=== PATIENT | male | born 1955 | race Caucasian/White ===

== ENCOUNTER → 2016-10-14 | Outpatient (CLI) | payer MEDICARE ==
--- NOTE | 2016-10-14 23:20 | MR ---
EXAMINATION TYPE: MR brain wo con DATE OF EXAM: 10/14/2016 8:58 PM COMPARISON: NONE HISTORY: Head injury 2 mos ago, papilledema, headache, blurred vision, neck pain Standard multiplanar, multisequence MRI departmental protocol Multiplanar, multisequence images of the brain were acquired. Diffusion weighted imaging was perform ed. FINDINGS: Ventricles and sulci have normal size. There are numerous foci of increased signal at the g ray-white matter junction of both cerebral hemispheres on the FLAIR and T2 images that measure up to 5 mm. The total number is approximately 10. Most of these foci are 2 3 mm. There is no midline shift. There is no sign of intracranial hemorrhage. There is mucosal thickening with opacification of left maxillary sinus. Brainstem is intact. Corpus callosum appears normal. Sella turcica is normal. The op tic nerves appear normal. The globes are symmetric. There is no evidence of an orbital mass. Optic ch iasm is normal. There is no evidence of a posterior fossa mass. IMPRESSION: There are numerous relatively small white matter lesions located mostly in the frontal lobes that are nonspecific and could relate to small vessel ischemia or minimal demyelinating disease. I do not see a cause for papilledema. There is left maxillary sinusitis.
== END | disposition home or self-care (01) ==
LOC: RADMRIMAIN 19:58
PROVIDERS: ATTEND Ophthalmology
DX: G93.9 Disorder of brain, unspecified (principal)
CPT/HCPCS: 70551

== ENCOUNTER → 2016-12-16 | Outpatient (CLI) | payer MEDICARE ==
--- NOTE | 2016-12-16 18:47 | PN ---
Lenard Mondragon is a 61-year-old male patient, asthmatic with known history of severe persistent bronchial asthma who is coming in for sleep apnea evaluation. The patient is very well-known to me. I have taken care of his asthma for many years. He has undergone sleep evaluation back in 2005 through the [facility]. At that time, the patient was seen by Dr. Walker. At that time, I was able to retrieve his old sleep study and based on the findings, the patient has mild LISA back then with an apnea-hypopnea index of 7. His disease was worse during REM sleep. He was given CPAP therapy at a pressure of 7 cm of water and subsequently the pressure dropped to 5, and ultimately the patient gave up his treatment. Recently he was complaining of some increased sleepiness and for that reason he wanted to be re-evaluated. I noted that the patient has lost around 20 pounds since his original sleep study back in 2005. He is snoring and his sleep is fragmented for now and he is interested in further evaluation. He goes to bed around 9:00 p.m., wakes up at 6:00 a.m. in the morning. He is waking with a dry mouth. No nocturia. His BP is 128/61, pulse 64, respirations 16, temperature 97.9, saturation 96% on room air. Weight is 225. Height is 5 feet 7 inches. Neck size is 17 1/2 inches. GENERAL APPEARANCE: Obese, calm, comfortable. HEENT: Short neck, crowding posterior pharynx. There is no goiter or neck masses. LUNGS: Clear to auscultation. HEART: Heart sounds are regular rate and rhythm. Normal S1, S2, no S3, no murmurs. ABDOMEN: Soft, nontender. No organomegaly. EXTREMITIES: No edema. No cyanosis, or clubbing. IMPRESSION: 1. Obstructive sleep apnea, mild at baseline coming in for re-evaluation. Based on a sleep study back in 2005, the patient has an AHI of 7 and currently she has been off treatment. 2. Snoring. 3. Severe persistent bronchial asthma. PLAN: The patient will obviously need a re-evaluation. He has lost around 20 pounds. His baseline sleep apnea was mild in severity. I am going to ordered a home sleep study to assess for any residual obstructive sleep apnea and decide treatment accordingly. He is on no treatment for now.
== END | disposition home or self-care (01) ==
LOC: SLEEP 14:20
PROVIDERS: ATTEND Internal Medicine Critical Care Medicine
DX: G47.33 Obstructive sleep apnea (adult) (pediatric) (principal); J45.998 Other asthma

== ENCOUNTER 2017-02-05 21:18 | Inpatient (IN) | payer MEDICARE ==
[2017-02-05] MEDS ORDERED: predniSONE 20 MG TAB PO STA (22:15)
--- NOTE | 2017-02-05 22:20 | XR ---
EXAMINATION TYPE: XR chest 2V DATE OF EXAM: 02/05/2017 9:53 PM COMPARISON: NONE HISTORY: February 08, 2016 TECHNIQUE: Frontal and lateral views of the chest are obtained. FINDINGS: EKG leads are noted. There is no focal air space opacity, pleural effusion, or pneumothora x seen. A few scattered linear shadows are noted bilaterally, most consistent with subsegmental atel ectasis. The cardiac silhouette size is within normal limits. The osseous structures are intact. IMPRESSION: No acute cardiopulmonary process.
--- NOTE | 2017-02-05 22:21 | ED ---
SOB HPI - General Chief Complaint: Shortness of Breath Stated Complaint: ELIS Time Seen by Provider: 02/05/17 21:29 Source: patient, EMS Mode of arrival: EMS Limitations: no limitations - History of Present Illness Initial Comments: This patient is a 61-year-old man with approximately one week to 10 days of cough, wheezing, and dyspnea. He states that he believes he either is having a flareup of bronchitis or pneumonia as this is similar to previous episodes. Patient states that he had phoned his handbag stitcher last week, Dr. Lo, who prescribed him azithromycin but he states that it is not really helping much. The patient does have some right-sided rib pain when he coughs, but is otherwise denying chest pain. He denies diaphoresis. There is no hemoptysis. He does have some occasional yellow sputum. MD Complaint: shortness of breath, cough Onset/Timin -: days(s) Severity: moderate Consistency: constant Improves With: nothing Worsens With: nothing Known History Of: COPD Associated Symptoms: chest pain, cough, sputum production - Related Data Home Medications Medication Instructions Recorded Confirmed Furosemide [Lasix] 40 mg PO DAILY 03/24/14 02/05/17 Levalbuterol HCl [Xopenex 1.25 mg INHALATION RT-QID PRN 03/24/14 02/05/17 Nebulized] Losartan/Hydrochlorothiazide 1 tab PO DAILY 03/24/14 02/05/17 [Hyzaar 100-25 Tablet] Potassium Chloride [Klor-Con 10] 10 meq PO DAILY 03/24/14 02/05/17 Minoxidil 10 mg PO BID 08/28/14 02/05/17 Fexofenadine HCl [Shelly Allergy] 180 mg PO DAILY PRN 11/07/14 02/05/17 hydrALAZINE HCL [Apresoline] 50 mg PO TID 02/08/16 02/05/17 Hydrocodone/Acetaminophen 1 tab PO QID 02/12/16 02/05/17 [Hydrocodon-Acetaminophn 10-325] Temazepam [Temazepam] 30 mg PO HS 02/12/16 02/05/17 Theophylline Anhydrous [Uniphyl] 200 mg PO BID 02/12/16 02/05/17 cloNIDine HCL [cloNIDine HCL] 0.3 mg PO TID 02/12/16 02/05/17 Aspirin EC [Ecotrin Low Dose] 81 mg PO DAILY 02/05/17 02/05/17 Azithromycin [Zithromax] 500 mg PO DAILY 02/05/17 02/05/17 Clopidogrel [Plavix] 75 mg PO DAILY 02/05/17 02/05/17 Ergocalciferol [Vitamin D2] 50,000 unit PO MO 02/05/17 02/05/17 Ipratropium Nebulized [Atrovent 0.5 mg INHALATION RT-QID PRN 02/05/17 02/05/17 Nebulized] Levothyroxine Sodium [Synthroid] 25 mcg PO DAILY 02/05/17 02/05/17 Metoprolol Tartrate [Lopressor] 25 mg PO BID 02/05/17 02/05/17 Montelukast [Singulair] 10 mg PO HS 02/05/17 02/05/17 Promethazine 6.25MG/5Ml [Phenergan 25 mg PO DAILY 02/05/17 02/05/17 Syrup] amLODIPine [Norvasc] 10 mg PO DAILY 02/05/17 02/05/17 predniSONE 10 mg PO DAILY 02/05/17 02/05/17 Allergies Allergy/AdvReac Type Severity Reaction Status Date / Time arformoterol tartrate Allergy Dyspnea Verified 02/12/16 14:03 [From Brovana] Iodinated Contrast Media - Allergy Anaphylaxis Verified 02/12/16 14:03 Oral and [Iodinated Contrast Media - IV Dye] Penicillins Allergy Dyspnea Verified 02/12/16 14:03 Quinolones Allergy Dyspnea Verified 02/05/17 21:46 vancomycin Allergy Dyspnea Verified 02/12/16 14:03 budesonide [From Symbicort] AdvReac Rash/Hives Verified 02/19/16 20:03 formoterol fumarate AdvReac Rash/Hives Verified 02/19/16 20:03 [From Symbicort] Review of Systems ROS Statement: Those systems with pertinent positive or pertinent negative responses have been documented in the HPI. ROS Other: All systems not noted in ROS Statement are negative. Constitutional: Denies: fever, chills, weakness Respiratory: Reports: as per HPI, cough, dyspnea, wheezes. Denies: hemoptysis Cardiovascular: Reports: as per HPI, chest pain. Denies: palpitations, edema Gastrointestinal: Denies: abdominal pain, vomiting, diarrhea Genitourinary: Denies: dysuria, hematuria Musculoskeletal: Denies: back pain Skin: Denies: rash Neurological: Denies: headache, weakness, numbness Past Medical History Past Medical History: Asthma, COPD, GERD/Reflux, Hypertension, Osteoarthritis ( OA), Respiratory Disorder, Sleep Apnea/CPAP/BIPAP Additional Past Medical History / Comment(s): Other HX: OTHER HX; VARICOSE VEINS, does not wear his CPAP, CONSTIPATION, varicosities. History of Any Multi-Drug Resistant Organisms: None Reported Past Surgical History: Appendectomy, Heart Catheterization, Hernia Repair, Orthopedic Surgery, Tonsillectomy Additional Past Surgical History / Comment(s): 09/03 Anterior/cervical spinal decompression and fusion C4-5, C5-6, 3 hernia repairs, total L knee replacement- 2012, cardiac cath no intervention, bronchoscopy with lavage. Past Anesthesia/Blood Transfusion Reactions: No Reported Reaction Past Psychological History: No Psychological Hx Reported Additional Psychological History / Comment(s): Pt lives with in home. He is on disability due to breathing problems. Pt is independent. Pt has a knee brace he uses on his R leg and if he goes out he has another one he places on his L leg. Pt drives a car. Smoking Status: Former smoker Past Alcohol Use History: None Reported Additional Past Alcohol Use History / Comment(s): QUIT SMOKING ABOUT 1 YEAR AGO. SMOKED 1-2 PPD FOR MOST OF LIFE Past Drug Use History: None Reported - Past Family History Mother Family Medical History: Coronary Artery Disease (CAD) Father Family Medical History: Myocardial Infarction ([place]) General Exam Limitations: no limitations General appearance: alert, in no apparent distress Head exam: Present: atraumatic, normocephalic Eye exam: Present: normal appearance. Absent: scleral icterus, conjunctival injection ENT exam: Present: normal oropharynx, mucous membranes moist Neck exam: Present: normal inspection Respiratory exam: Present: wheezes, rhonchi, chest wall tenderness. Absent: respiratory distress, rales, stridor, accessory muscle use, decreased breath sounds, prolonged expiratory Cardiovascular Exam: Present: regular rate, normal rhythm, normal heart sounds. Absent: systolic murmur, diastolic murmur, rubs, gallop GI/Abdominal exam: Present: soft. Absent: tenderness, guarding, rebound, mass Extremities exam: Present: full ROM, normal capillary refill. Absent: pedal edema, calf tenderness Back exam: Absent: CVA tenderness (R), CVA tenderness (L) Neurological exam: Present: alert Skin exam: Present: warm, dry, intact, normal color. Absent: rash, cyanosis, diaphoretic, erythema, petechiae, pallor, mottled Course Vital Signs 02/05/17 02/05/17 02/05/17 21:23 21:40 22:32 Temperature 98.8 F Pulse Rate 81 67 Respiratory 24 24 20 Rate Blood Pressure 171/81 149/64 O2 Sat by Pulse 98 95 Oximetry 02/05/17 02/05/17 02/06/17 23:29 23:38 00:57 Temperature Pulse Rate 67 69 61 Respiratory 18 Rate Blood Pressure 178/77 O2 Sat by Pulse 96 Oximetry 02/06/17 02/06/17 02/06/17 01:03 01:11 02:04 Temperature Pulse Rate 70 78 68 Respiratory 18 Rate Blood Pressure 157/71 O2 Sat by Pulse 92 L Oximetry Medical Decision Making - Lab Data Result diagrams: 02/05/17 22:15 02/05/17 22:15 Lab Results 02/05/17 02/05/17 02/05/17 Range/Units 22:15 22:15 22:15 WBC (3.8-10.6) k/uL RBC (4.30-5.90) m/uL Hgb (13.0-17.5) gm/dL Hct (39.0-53.0) % MCV (80.0-100.0) fL MCH (25.0-35.0) pg MCHC (31.0-37.0) g/dL RDW (11.5-15.5) % Plt Count (150-450) k/uL Neutrophils % % Lymphocytes % % Monocytes % % Eosinophils % % Basophils % % Neutrophils # (1.3-7.7) k/uL Lymphocytes # (1.0-4.8) k/uL Monocytes # (0-1.0) k/uL Eosinophils # (0-0.7) k/uL Basophils # (0-0.2) k/uL Macrocytosis PT 10.7 (9.0-12.0) sec INR 1.1 (<1.1) APTT 26.5 (22.0-30.0) sec D-Dimer 0.21 (<0.60) mg/L FEU Sodium (137-145) mmol/L Potassium (3.5-5.1) mmol/L Chloride (98-107) mmol/L Carbon Dioxide (22-30) mmol/L Anion Gap mmol/L BUN (9-20) mg/dL Creatinine (0.66-1.25) mg/dL Est GFR (MDRD) Af Amer (>60 ml/min/1.73 sqM) Est GFR (MDRD) Non-Af (>60 ml/min/1.73 sqM) Glucose (74-99) mg/dL Calcium (8.4-10.2) mg/dL Total Bilirubin (0.2-1.3) mg/dL AST (17-59) U/L ALT (21-72) U/L Alkaline Phosphatase (38-126) U/L Total Creatine Kinase 90 (55-170) U/L CK-MB (CK-2) 1.3 (0.0-2.4) ng/mL CK-MB (CK-2) Rel Index 1.4 Troponin I <0.012 (0.000-0.034) ng/mL NT-Pro-B Natriuret Pep 33 pg/mL Total Protein (6.3-8.2) g/dL Albumin (3.5-5.0) g/dL 02/05/17 02/05/17 Range/Units 22:15 22:15 WBC 8.7 (3.8-10.6) k/uL RBC 4.11 L (4.30-5.90) m/uL Hgb 14.2 (13.0-17.5) gm/dL Hct 42.7 (39.0-53.0) % MCV 104.0 H (80.0-100.0) fL MCH 34.5 (25.0-35.0) pg MCHC 33.2 (31.0-37.0) g/dL RDW 13.4 (11.5-15.5) % Plt Count 229 (150-450) k/uL Neutrophils % 79 % Lymphocytes % 13 % Monocytes % 5 % Eosinophils % 0 % Basophils % 0 % Neutrophils # 6.9 (1.3-7.7) k/uL Lymphocytes # 1.2 (1.0-4.8) k/uL Monocytes # 0.5 (0-1.0) k/uL Eosinophils # 0.0 (0-0.7) k/uL Basophils # 0.0 (0-0.2) k/uL Macrocytosis Slight PT (9.0-12.0) sec INR (<1.1) APTT (22.0-30.0) sec D-Dimer (<0.60) mg/L FEU Sodium 142 (137-145) mmol/L Potassium 4.2 (3.5-5.1) mmol/L Chloride 106 (98-107) mmol/L Carbon Dioxide 26 (22-30) mmol/L Anion Gap 10 mmol/L BUN 14 (9-20) mg/dL Creatinine 0.90 (0.66-1.25) mg/dL Est GFR (MDRD) Af Amer >60 (>60 ml/min/1.73 sqM) Est GFR (MDRD) Non-Af >60 (>60 ml/min/1.73 sqM) Glucose 97 (74-99) mg/dL Calcium 9.2 (8.4-10.2) mg/dL Total Bilirubin 0.3 (0.2-1.3) mg/dL AST 21 (17-59) U/L ALT 31 (21-72) U/L Alkaline Phosphatase 75 (38-126) U/L Total Creatine Kinase (55-170) U/L CK-MB (CK-2) (0.0-2.4) ng/mL CK-MB (CK-2) Rel Index Troponin I (0.000-0.034) ng/mL NT-Pro-B Natriuret Pep pg/mL Total Protein 6.6 (6.3-8.2) g/dL Albumin 4.1 (3.5-5.0) g/dL Disposition Clinical Impression: Acute exacerbation of chronic obstructive airways disease Disposition: ADMITTED IP TO THIS HOSP Condition: Fair Referrals: Chris Ervin MD [Primary Care Provider] - 1-2 days
[2017-02-05 22:38] LABS: Basophils % (A) 0 %; CH 35.3; CHCM 34.1; Eosinophils % (A) 0 %; HCT 42.7 % (39.0-53.0); HDW 2.35; HGB 14.2 gm/dL (13.0-17.5); Luc # (Auto) 0.16; Luc % (Auto) 2; Lymphocytes # (A) 1.2 k/uL (1.0-4.8); Lymphocytes % (A) 13 %; MCH 34.5 pg (25.0-35.0); MCHC 33.2 g/dL (31.0-37.0); Macrocytosis Slight; Mean Platelet Volume 7.2; Monocytes # (A) 0.5 k/uL (0-1.0); Monocytes % (A) 5 %; Neutrophils # (A) 6.9 k/uL (1.3-7.7); Neutrophils % (A) 79 %; RBC 4.11 m/uL (4.30-5.90); RDW 13.4 % (11.5-15.5); WBC 8.7 k/uL (3.8-10.6)
[2017-02-05 22:49] LABS: INR 1.1 (<1.1); Partial Thromboplastin Time 26.5 sec (22.0-30.0); Prothrombin Time 10.7 sec (9.0-12.0)
[2017-02-05 22:50] LABS: ALT 31 U/L (21-72); AST 21 U/L (17-59); Alkaline Phosphatase 75 U/L (38-126); Anion Gap 10 mmol/L; Blood Urea Nitrogen 14 mg/dL (9-20); Calcium 9.2 mg/dL (8.4-10.2); Carbon Dioxide 26 mmol/L (22-30); Chloride 106 mmol/L (98-107); Glucose 97 mg/dL (74-99); Non-African American GFR(MDRD) >60 (>60 ml/min/1.73 sqM); Potassium 4.2 mmol/L (3.5-5.1); Sodium 142 mmol/L (137-145); Total Bilirubin 0.3 mg/dL (0.2-1.3); Total Protein 6.6 g/dL (6.3-8.2)
[2017-02-05 22:54] LABS: Creatine Kinase 90 U/L (55-170)
[2017-02-05 23:05] LABS: Creatine Kinase MB 1.3 ng/mL (0.0-2.4); Troponin I <0.012 ng/mL (0.000-0.034)
[2017-02-05] MEDS ORDERED: ALBUTEROL NEBULIZED 2.5 MG/3 ML INHALATION STA (23:19)
[2017-02-06] MEDS ORDERED: IPRATROPIUM-ALBUTEROL 3 ML NEB INHALATION STA (00:35)
[2017-02-06] MEDS ORDERED: cloNIDine HCL 0.1 MG TAB PO STA (00:56)
[2017-02-06] MEDS ORDERED: hydrALAZINE HCL 50 MG TAB PO STA (00:56)
[2017-02-06] MEDS ORDERED: METOPROLOL TARTRATE 25 MG TAB PO STA (00:56)
[2017-02-06] MEDS ORDERED: LORATADINE 10 MG TAB PO PRN (02:52)
[2017-02-06] MEDS: SODIUM CHLORIDE 0.9% 1,000 ML IV SCH (03:12)
[2017-02-06] MEDS ORDERED: IPRATROPIUM-ALBUTEROL 3 ML NEB INHALATION PRN (03:13)
[2017-02-06] MEDS: LEVOTHYROXINE 25 MCG TAB PO SCH (06:59)
[2017-02-06] MEDS: IPRATROPIUM-ALBUTEROL 3 ML NEB INHALATION SCH ×4 (07:37→19:48)
[2017-02-06] MEDS ORDERED: BUDESONIDE 0.5 MG/2 ML NEBU INHALATION SCH (08:00)
[2017-02-06] MEDS: HYDROcodone/APAP 10-325MG 1 EACH TAB PO SCH ×4 (08:25→22:41)
[2017-02-06] MEDS: CLOPIDOGREL 75 MG TAB PO SCH (08:26)
[2017-02-06] MEDS: hydrALAZINE HCL 50 MG TAB PO SCH ×3 (08:26→22:41)
[2017-02-06] MEDS: LOSARTAN-HCTZ 50-12.5 MG 1 EACH TAB PO SCH (08:26)
[2017-02-06] MEDS: amLODIPine 10 MG TAB PO SCH (08:26)
[2017-02-06] MEDS: ASPIRIN 81 MG CHEW PO SCH (08:26)
[2017-02-06] MEDS: AZITHROMYCIN 500 MG TAB PO SCH (08:26)
[2017-02-06] MEDS: THEOPHYLLINE 24 HOUR 400 MG CAP.ER.24H PO SCH (08:26)
[2017-02-06] MEDS: METOPROLOL TARTRATE 25 MG TAB PO SCH ×2 (08:26→22:40)
[2017-02-06] MEDS: cloNIDine HCL 0.1 MG TAB PO SCH ×3 (08:26→22:41)
[2017-02-06] MEDS: POTASSIUM CHLORIDE ER 10 MEQ TAB.ER.PRT PO SCH (08:26)
[2017-02-06] MEDS: FUROSEMIDE 40 MG TAB PO SCH (08:26)
[2017-02-06] MEDS: MINOXIDIL 10 MG TAB PO SCH ×2 (08:26→22:40)
[2017-02-06] MEDS ORDERED: predniSONE 20 MG TAB PO SCH (09:00)
[2017-02-06] MEDS ORDERED: PROMETHAZINE 6.25MG/5ML 147.5 MG/118 ML BOTTLE PO SCH (09:00)
[2017-02-06] MEDS: methylPREDNISolone SOD SUCCI 125 MG/2 ML VIAL IV SCH ×3 (12:10→22:42)
--- NOTE | 2017-02-06 14:23 | P.HPIM ---
History of Present Illness H&P Date: 02/06/17 Chief Complaint: Worsening shortness of breath This is a 61-year-old male with a known history of COPD, hypertension, coronary artery disease with previous cardiac stent and obstructive sleep apnea. He reports to having a productive cough and shortness of breath 1 week. He was started on azithromycin the outpatient setting by his shirt sewer. Patient reports that he took about 3 days of the antibiotic with no improvement therefore he came into the emergency room for further evaluation and treatment. Chest x-ray showed no acute changes. In the emergency room he was started on prednisone and Zithromax. He did have evidence of accelerated hypertension and received 1 dose of IV hydralazine. D-dimer was negative. Currently on 3 L standing and 94%. Pulmonary service has been consulted patient started on IV steroids and IV antibiotics. He denies any chest pain. Denies any nausea or vomiting. Denies any bowel movement changes or urinary symptoms Review of Systems Please refer to HPI otherwise unremarkable Past Medical History Past Medical History: Asthma, COPD, GERD/Reflux, Hypertension, Osteoarthritis ( OA), Respiratory Disorder, Sleep Apnea/CPAP/BIPAP Additional Past Medical History / Comment(s): Other HX: OTHER HX; VARICOSE VEINS, does not wear his CPAP, CONSTIPATION, varicosities. History of Any Multi-Drug Resistant Organisms: None Reported Past Surgical History: Appendectomy, Heart Catheterization With Stent, Hernia Repair, Orthopedic Surgery, Tonsillectomy Additional Past Surgical History / Comment(s): 09/03 Anterior/cervical spinal decompression and fusion C4-5, C5-6, 3 hernia repairs, total L knee replacement- 2012, cardiac cath, bronchoscopy with lavage. Past Anesthesia/Blood Transfusion Reactions: No Reported Reaction Date of Last Stent Placement:: 12/03 Past Psychological History: No Psychological Hx Reported Additional Psychological History / Comment(s): Pt lives with in home. He is on disability due to breathing problems. Pt is independent. Pt has a knee brace he uses on his R leg and if he goes out he has another one he places on his L leg. Pt drives a car. Smoking Status: Former smoker Past Alcohol Use History: None Reported Additional Past Alcohol Use History / Comment(s): QUIT SMOKING ABOUT 1 YEAR AGO. SMOKED 1-2 PPD FOR MOST OF LIFE Past Drug Use History: None Reported - Past Family History Mother Family Medical History: Coronary Artery Disease (CAD) Father Family Medical History: Myocardial Infarction ([place]) Medications and Allergies Home Medications Medication Instructions Recorded Confirmed Type Furosemide [Lasix] 40 mg PO DAILY 03/24/14 02/05/17 History Levalbuterol HCl [Xopenex 1.25 mg INHALATION RT-QID PRN 03/24/14 02/05/17 History Nebulized] Losartan/Hydrochlorothiazide 1 tab PO DAILY 03/24/14 02/05/17 History [Hyzaar 100-25 Tablet] Potassium Chloride [Klor-Con 10] 10 meq PO DAILY 03/24/14 02/05/17 History Minoxidil 10 mg PO BID 08/28/14 02/05/17 History Fexofenadine HCl [Shelly Allergy] 180 mg PO DAILY PRN 11/07/14 02/05/17 History hydrALAZINE HCL [Apresoline] 50 mg PO TID 02/08/16 02/05/17 History Hydrocodone/Acetaminophen 1 tab PO QID 02/12/16 02/05/17 History [Hydrocodon-Acetaminophn 10-325] Temazepam [Temazepam] 30 mg PO HS 02/12/16 02/05/17 History Theophylline Anhydrous [Uniphyl] 200 mg PO BID 02/12/16 02/05/17 History cloNIDine HCL [cloNIDine HCL] 0.3 mg PO TID 02/12/16 02/05/17 History Aspirin EC [Ecotrin Low Dose] 81 mg PO DAILY 02/05/17 02/05/17 History Azithromycin [Zithromax] 500 mg PO DAILY 02/05/17 02/05/17 History Clopidogrel [Plavix] 75 mg PO DAILY 02/05/17 02/05/17 History Ergocalciferol [Vitamin D2] 50,000 unit PO MO 02/05/17 02/05/17 History Ipratropium Nebulized [Atrovent 0.5 mg INHALATION RT-QID PRN 02/05/17 02/05/17 History Nebulized] Levothyroxine Sodium [Synthroid] 25 mcg PO DAILY 02/05/17 02/05/17 History Metoprolol Tartrate [Lopressor] 25 mg PO BID 02/05/17 02/05/17 History Montelukast [Singulair] 10 mg PO HS 02/05/17 02/05/17 History Promethazine 6.25MG/5Ml [Phenergan 25 mg PO DAILY 02/05/17 02/05/17 History Syrup] amLODIPine [Norvasc] 10 mg PO DAILY 02/05/17 02/05/17 History predniSONE 10 mg PO DAILY 02/05/17 02/05/17 History Allergies Allergy/AdvReac Type Severity Reaction Status Date / Time arformoterol tartrate Allergy Dyspnea Verified 02/12/16 14:03 [From CiDRAvana] Iodinated Contrast Media - Allergy Anaphylaxis Verified 02/12/16 14:03 Oral and [Iodinated Contrast Media - IV Dye] Penicillins Allergy Dyspnea Verified 02/12/16 14:03 Quinolones Allergy Dyspnea Verified 02/05/17 21:46 vancomycin Allergy Dyspnea Verified 02/12/16 14:03 budesonide [From [employer]] AdvReac Rash/Hives Verified 02/19/16 20:03 formoterol fumarate AdvReac Rash/Hives Verified 02/19/16 20:03 [From [employer]] Physical Exam Vitals: Vital Signs Temp Pulse Pulse Resp BP BP Pulse Ox 02/06/17 11:23 76 02/06/17 11:18 72 02/06/17 08:00 18 02/06/17 07:58 76 02/06/17 07:39 73 94 L 02/06/17 07:00 97.4 F L 70 19 148/78 93 L 02/06/17 03:59 96.9 F L 61 20 146/70 96 02/06/17 03:13 98.3 F 65 22 139/65 95 02/06/17 02:04 68 18 157/71 92 L 02/06/17 01:11 78 02/06/17 01:03 70 02/06/17 00:57 61 18 178/77 96 02/05/17 23:38 69 02/05/17 23:29 67 02/05/17 22:32 67 20 149/64 95 02/05/17 21:40 24 02/05/17 21:23 98.8 F 81 24 171/81 98 Intake and Output 02/05/17 02/06/17 02/06/17 22:59 06:59 14:59 Other: # Voids 0 1 # Bowel Movements 0 Weight 99.79 kg Head normocephalic Neck supple Lungs wheezing and diminished bilaterally Heart regular rate and rhythm S1-S2, no rub or gallop Abdomen is soft nontender nondistended positive bowel sounds no hepatosplenomegaly Extremities no edema Neuro alert and orientated to 3 Results CBC & Chem 7: 02/05/17 22:15 02/05/17 22:15 Labs: Abnormal Lab Results - Last 24 Hours (Table) 02/05/17 Range/Units 22:15 RBC 4.11 L (4.30-5.90) m/uL MCV 104.0 H (80.0-100.0) fL Thrombosis Risk Factor Assmnt - Choose All That Apply Any of the Below Risk Factors Present?: Yes Each Factor Represents 1 point: Abnormal pulmonary function (COPD), Obesity ( BMI >25), Serious lung disease incl. pneumonia (< 1month), Varicose veins Other Risk Factors: Yes Each Risk Factor Represents 2 Points: Age 61-74 years Thrombosis Risk Factor Assessment Total Risk Factor Score: 6 Thrombosis Risk Factor Assessment Level: High Risk Assessment and Plan Plan: 1. Acute COPD exacerbation: Continue nebulizer treatments. Patient will be placed on IV Solu-Medrol 2. Acute tracheobronchitis: Start patient on clindamycin 600 mg IV every 8 hours continue azithromycin. Patient has ALLERGIES to quinolones penicillin and vancomycin 3. Accelerated hypertension on admission with history of essential hypertension : blood pressures improved continue with his Catapres patch hydralazine, losartan, hydrochlorothiazide, metoprolol and minoxidil 4. Hypothyroidism continue Synthroid 5. Obstructive sleep apnea 6. Coronary artery disease with cardiac stent continue Plavix DVT prophylaxis subcu heparin and GI prophylaxis Time with Patient: Greater than 30 (Greater than 50% of the total time spent in counseling and coordination of care.I performed an examination of the patient and discussed their management with the physician Squadron Worker. I have reviewed the Physician Squadron Worker's notes and agree with the documented findings and plan of care)
--- NOTE | 2017-02-06 15:45 | P.CNPUL ---
History of Present Illness Consult date: 02/06/17 Reason for consult: dyspnea History of present illness: 61-year-old male patient, known history of severe persistent bronchial asthma, was Hospital as because of increased shortness of breath. The patient started having increased dyspnea approximately a week ago. He was treated on outpatient basis with a course of Z-Gonzales without much improvement. This was offered to him for treatment of tracheal bronchitis. He ultimately became more short of breath and bronchospastic and wheezy and he developed significantly congested cough and he ended up coming to the emergency department where he was hospitalized for further evaluation and management. Chest x-ray is free of any acute pulmonary infiltrates. He is known to have coronary artery disease and he has undergone previous coronary artery stenting that was done in November 2015. Note that the patient has been maintained on a combination of Breo Ellipta , theophylline and Singulair and Shelly and 10 mg of prednisone a daily basis. He was also receiving neb last tubes are macerated basis. He is known to have obstructive sleep apnea and he was not using his CPAP machine as the patient was uncomfortable with the mask. He has various other medical [place] comorbidities in addition. He is an ex-smoker. No DVT. No pulmonary embolism. No swelling lower extremities. Review of Systems All systems: negative Constitutional: Denies chills, Denies fever Eyes: denies blurred vision, denies pain Ears, nose, mouth and throat: Denies headache, Denies sore throat Cardiovascular: Denies chest pain, Denies shortness of breath Respiratory: Denies cough Gastrointestinal: Denies abdominal pain, Denies diarrhea, Denies nausea, Denies vomiting Musculoskeletal: Denies myalgias Integumentary: Denies pruritus, Denies rash Neurological: Denies numbness, Denies weakness Psychiatric: Denies anxiety, Denies depression Endocrine: Denies fatigue, Denies weight change Past Medical History Past Medical History: Asthma, COPD, GERD/Reflux, Hypertension, Osteoarthritis ( OA), Respiratory Disorder, Sleep Apnea/CPAP/BIPAP Additional Past Medical History / Comment(s): Severe persistent bronchial asthma , coronary artery disease, hyperlipidemia, hypertension, obesity, obstructive sleep apnea, osteoarthritis, very closely in the lower extremities, chronic constipation History of Any Multi-Drug Resistant Organisms: None Reported Past Surgical History: Appendectomy, Heart Catheterization With Stent, Hernia Repair, Orthopedic Surgery, Tonsillectomy Additional Past Surgical History / Comment(s): Hernia repair 4, tonsillectomy, appendectomy, bronchoscopy, total left knee replacement 2012, anterior and cervical spinal decompression and fusion at the level of C4-C5, C5-C6 and cardiac catheterization with stent placement Past Anesthesia/Blood Transfusion Reactions: No Reported Reaction Date of Last Stent Placement:: 12/03 Past Psychological History: No Psychological Hx Reported Additional Psychological History / Comment(s): Pt lives with in home. He is on disability due to breathing problems. Pt is independent. Pt has a knee brace he uses on his R leg and if he goes out he has another one he places on his L leg. Pt drives a car. Smoking Status: Former smoker Past Alcohol Use History: None Reported Additional Past Alcohol Use History / Comment(s): QUIT SMOKING ABOUT 1 YEAR AGO. SMOKED 1-2 PPD FOR MOST OF LIFE Past Drug Use History: None Reported - Past Family History Mother Family Medical History: Coronary Artery Disease (CAD) Father Family Medical History: Myocardial Infarction ([place]) Medications and Allergies Home Medications Medication Instructions Recorded Confirmed Type Furosemide [Lasix] 40 mg PO DAILY 03/24/14 02/05/17 History Levalbuterol HCl [Xopenex 1.25 mg INHALATION RT-QID PRN 03/24/14 02/05/17 History Nebulized] Losartan/Hydrochlorothiazide 1 tab PO DAILY 03/24/14 02/05/17 History [Hyzaar 100-25 Tablet] Potassium Chloride [Klor-Con 10] 10 meq PO DAILY 03/24/14 02/05/17 History Minoxidil 10 mg PO BID 08/28/14 02/05/17 History Fexofenadine HCl [Shelly Allergy] 180 mg PO DAILY PRN 11/07/14 02/05/17 History hydrALAZINE HCL [Apresoline] 50 mg PO TID 02/08/16 02/05/17 History Hydrocodone/Acetaminophen 1 tab PO QID 02/12/16 02/05/17 History [Hydrocodon-Acetaminophn 10-325] Temazepam [Temazepam] 30 mg PO HS 02/12/16 02/05/17 History Theophylline Anhydrous [Uniphyl] 200 mg PO BID 02/12/16 02/05/17 History cloNIDine HCL [cloNIDine HCL] 0.3 mg PO TID 02/12/16 02/05/17 History Aspirin EC [Ecotrin Low Dose] 81 mg PO DAILY 02/05/17 02/05/17 History Azithromycin [Zithromax] 500 mg PO DAILY 02/05/17 02/05/17 History Clopidogrel [Plavix] 75 mg PO DAILY 02/05/17 02/05/17 History Ergocalciferol [Vitamin D2] 50,000 unit PO MO 02/05/17 02/05/17 History Ipratropium Nebulized [Atrovent 0.5 mg INHALATION RT-QID PRN 02/05/17 02/05/17 History Nebulized] Levothyroxine Sodium [Synthroid] 25 mcg PO DAILY 02/05/17 02/05/17 History Metoprolol Tartrate [Lopressor] 25 mg PO BID 02/05/17 02/05/17 History Montelukast [Singulair] 10 mg PO HS 02/05/17 02/05/17 History Promethazine 6.25MG/5Ml [Phenergan 25 mg PO DAILY 02/05/17 02/05/17 History Syrup] amLODIPine [Norvasc] 10 mg PO DAILY 02/05/17 02/05/17 History predniSONE 10 mg PO DAILY 02/05/17 02/05/17 History Allergies Allergy/AdvReac Type Severity Reaction Status Date / Time arformoterol tartrate Allergy Dyspnea Verified 02/12/16 14:03 [From Brovana] Iodinated Contrast Media - Allergy Anaphylaxis Verified 02/12/16 14:03 Oral and [Iodinated Contrast Media - IV Dye] Penicillins Allergy Dyspnea Verified 02/12/16 14:03 Quinolones Allergy Dyspnea Verified 02/05/17 21:46 vancomycin Allergy Dyspnea Verified 02/12/16 14:03 budesonide [From Symbicort] AdvReac Rash/Hives Verified 02/19/16 20:03 formoterol fumarate AdvReac Rash/Hives Verified 02/19/16 20:03 [From Symbicort] Physical Exam Vitals: Vital Signs Temp Pulse Pulse Resp BP BP Pulse Ox 02/06/17 11:23 76 02/06/17 11:18 72 02/06/17 08:00 18 02/06/17 07:58 76 02/06/17 07:39 73 94 L 02/06/17 07:00 97.4 F L 70 19 148/78 93 L 02/06/17 03:59 96.9 F L 61 20 146/70 96 02/06/17 03:13 98.3 F 65 22 139/65 95 02/06/17 02:04 68 18 157/71 92 L 02/06/17 01:11 78 02/06/17 01:03 70 02/06/17 00:57 61 18 178/77 96 02/05/17 23:38 69 02/05/17 23:29 67 02/05/17 22:32 67 20 149/64 95 02/05/17 21:40 24 02/05/17 21:23 98.8 F 81 24 171/81 98 Intake and Output 02/06/17 02/06/17 02/06/17 06:59 14:59 22:59 Other: # Voids 0 1 # Bowel Movements 0 Obese, comfortable, no acute distress.Head exam was generally normal. There was no scleral icterus or corneal arcus. Mucous membranes were moist. Neck is short and supple and the patient is crowding of the posterior oropharynx. There is no goiter or neck masses. Lungs sounds are diminished bilaterally and the patient has diffuse expiratory wheezes all the lung [place].Cardiac exam revealed the PMI to be normally situated and sized. The rhythm was regular and no extrasystoles were noted during several minutes of auscultation. The first and second heart sounds were normal and physiologic splitting of the second heart sound was noted. There were no murmurs, rubs, clicks, or gallops. Abdomen is obese soft nontender. Organs cannot be accurately palpated. There is no direct tenderness. No rebound tenderness. No guarding.Examination of the extremities revealed easily palpable radial, femoral and pedal pulses. There was no cyanosis, clubbing or edema. Results - Laboratory Findings CBC and BMP: 02/05/17 22:15 02/05/17 22:15 PT/INR, D-dimer PT 10.7 sec (9.0-12.0) 02/05/17 22:15 INR 1.1 (<1.1) 02/05/17 22:15 D-Dimer 0.21 mg/L FEU (<0.60) 02/05/17 22:15 Abnormal lab findings: Abnormal Labs 02/05/17 22:15 RBC 4.11 L MCV 104.0 H - Diagnostic Findings Chest x-ray: image reviewed Assessment and Plan Plan: 1 acute bronchial asthma exacerbation secondary to tracheal bronchitis 2 Severe persistent bronchial asthma, details discussed above and the patient has been maintained on a combination of medications including Breo , theophylline, Singulair and Shelly in addition to Xopenex tablets treatment on as-needed basis. The patient used to be on Xolair the past 3 coronary artery disease 4 obstructive sleep apnea. 5 obesity 6 hyperlipidemia 7 hypertension 8 osteoarthritis 9 chronic back pain 10 GERD Plan This patient will be started on DuoNeb nebulized treatments around the clock 4 times a day. Continue Zithromax 5 mg on a daily basis. Discontinue clindamycin knowing that this may interact with Zithromax. Continue IV Solu- Medrol. Put the patient a combination of Perforomist and Pulmicort neb estimates twice a day, Tussionex for cough, theophylline 24 for milligrams by mouth daily. Resume Singulair. Anticipate improvement. We'll continue to follow make further recommendations based on his progress.
[2017-02-06] MEDS ORDERED: CLINDAMYCIN 600 MG in DEXTROSE 5% IN WATER 50 ML IVPB SCH ×2 (16:00)
[2017-02-06] MEDS: CHLORPHEN-HYDROcod 8-10mg/5ml 5 ML ORAL.SYRG PO SCH (16:31)
[2017-02-06] MEDS: BUDESONIDE 0.5 MG/2 ML NEBU INHALATION SCH (19:48)
[2017-02-06] MEDS ORDERED: FORMOTEROL FUMARATE 20 MCG/2 ML NEBU INHALATION SCH (20:00)
[2017-02-06] MEDS: HEPARIN SODIUM,PORCINE 5,000 UNIT/ML 1 ML VIAL SQ SCH (22:39)
[2017-02-06] MEDS: MONTELUKAST 10 MG TAB PO SCH (22:40)
[2017-02-06] MEDS: TEMAZEPAM 30 MG CAP PO SCH (22:41)
[2017-02-07] MEDS: SODIUM CHLORIDE 0.9% 1,000 ML IV SCH (06:12)
[2017-02-07] MEDS: CHLORPHEN-HYDROcod 8-10mg/5ml 5 ML ORAL.SYRG PO SCH ×2 (06:13→15:52)
[2017-02-07] MEDS: LEVOTHYROXINE 25 MCG TAB PO SCH (06:13)
[2017-02-07] MEDS: methylPREDNISolone SOD SUCCI 125 MG/2 ML VIAL IV SCH ×4 (06:14→23:45)
[2017-02-07] MEDS: MINOXIDIL 10 MG TAB PO SCH ×2 (08:00→22:04)
[2017-02-07] MEDS: AZITHROMYCIN 500 MG TAB PO SCH (08:00)
[2017-02-07] MEDS: METOPROLOL TARTRATE 25 MG TAB PO SCH ×2 (08:00→22:04)
[2017-02-07] MEDS: THEOPHYLLINE 24 HOUR 400 MG CAP.ER.24H PO SCH (08:00)
[2017-02-07] MEDS: amLODIPine 10 MG TAB PO SCH (08:00)
[2017-02-07] MEDS: POTASSIUM CHLORIDE ER 10 MEQ TAB.ER.PRT PO SCH (08:00)
[2017-02-07] MEDS: ASPIRIN 81 MG CHEW PO SCH (08:00)
[2017-02-07] MEDS: LOSARTAN-HCTZ 50-12.5 MG 1 EACH TAB PO SCH (08:00)
[2017-02-07] MEDS: hydrALAZINE HCL 50 MG TAB PO SCH ×3 (08:00→22:04)
[2017-02-07] MEDS: HEPARIN SODIUM,PORCINE 5,000 UNIT/ML 1 ML VIAL SQ SCH ×2 (08:01→22:02)
[2017-02-07] MEDS: CLOPIDOGREL 75 MG TAB PO SCH (08:01)
[2017-02-07] MEDS: cloNIDine HCL 0.1 MG TAB PO SCH ×3 (08:01→22:05)
[2017-02-07] MEDS: HYDROcodone/APAP 10-325MG 1 EACH TAB PO SCH ×3 (08:01→17:00)
[2017-02-07] MEDS: FUROSEMIDE 40 MG TAB PO SCH (08:01)
[2017-02-07] MEDS: BUDESONIDE 0.5 MG/2 ML NEBU INHALATION SCH ×2 (08:41→20:24)
[2017-02-07] MEDS: IPRATROPIUM-ALBUTEROL 3 ML NEB INHALATION SCH ×4 (08:41→20:24)
--- NOTE | 2017-02-07 09:37 | P.PN ---
Subjective 61-year-old male seen this morning on rounds. Patient sitting up in bed. Patient continues to report feeling short of breath. Patients being followed by pulmonology service. Recommendations reviewed noted and appreciated. Patient is being treated for acute bronchial asthma with an exacerbation secondary to tracheal bronchitis. Severe persistent bronchial asthma. Nasal cannula at 3 L sats are 94% Objective - Vital Signs Vital signs: Vital Signs Temp 97.0 F L 02/07/17 07:00 Pulse 84 02/07/17 09:03 Resp 20 02/07/17 07:00 BP 136/74 02/07/17 07:00 Pulse Ox 94 L 02/07/17 07:00 Intake & Output 02/06/17 02/07/17 02/07/17 18:59 06:59 18:59 Intake Total 300 480 Balance 300 480 Intake: Oral 300 480 Other: Voiding Method Urinal Urinal # Voids 1 1 - Exam Physical exam 61-year-old male sitting up in bed states breathing feels slightly improved but continues to feel short of breath with exertion. Lungs diminished at the bases poor air entry bilateral expiratory wheezing noted dry nonproductive cough noted nasal cannula at 3 L sats greater than 90% Heart S1-S2 audible and regular Abdomen soft nontender reports no frequent stooling no difficulty in urinating no nausea Extremities no edema noted - Labs CBC & Chem 7: 02/05/17 22:15 02/05/17 22:15 Labs: Microbiology - Last 24 Hours (Table) 02/05/17 22:15 Blood Culture - Preliminary Blood No Growth after 24 hours Assessment and Plan Plan: Impression Present on admission shortness of breath multifactorial due to acute bronchial asthma exacerbation secondary to tracheal bronchitis with severe persistent bronchial asthma Obstructive sleep apnea Obesity BMI 32 Chronic back pain Severe persistent bronchial asthma Osteoarthritis Hyperlipidemia Present on admission exhilarated hypertension History of tobacco abuse quit 1 year ago prior to that greater than a 40 year history 1-2 pack a day Known coronary artery disease with prior coronary stenting Hypothyroid Plan Continue recommendations by pulmonology service defer to Titrate the O2 down keep the sats greater than 90 DVT and GI prophylaxis Resume home meds as appropriate Monitor blood pressure and heart rate adjust the antihypertensive meds as indicated Continue IV antibiotic clindamycin 600 mg IV every 8 with zithomax Continue duoneb respiratory treatments as ordered, The above dictated assessment and findings were discussed with dr de dios . Impression and the plan of care have been dictated as directed. Dana Montesinos nurse practitioner acting as a scribe for dr de dios.
[2017-02-07 10:52] LABS: Basophils % (A) 0 %; CH 34.8; CHCM 33.9; Eosinophils % (A) 0 %; HCT 41.7 % (39.0-53.0); HDW 2.35; Luc # (Auto) 0.07; Luc % (Auto) 1; Lymphocytes # (A) 0.7 k/uL (1.0-4.8); Lymphocytes % (A) 6 %; MCH 34.5 pg (25.0-35.0); MCHC 33.4 g/dL (31.0-37.0); MCV 103.1 fL (80.0-100.0); Macrocytosis Slight; Mean Platelet Volume 7.4; Monocytes # (A) 0.3 k/uL (0-1.0); Monocytes % (A) 3 %; Neutrophils # (A) 11.4 k/uL (1.3-7.7); Neutrophils % (A) 91 %; RBC 4.05 m/uL (4.30-5.90); RDW 13.4 % (11.5-15.5); WBC 12.5 k/uL (3.8-10.6); WBC (Perox) 13.56
[2017-02-07 11:23] LABS: ALT 27 U/L (21-72); AST 17 U/L (17-59); Alkaline Phosphatase 64 U/L (38-126); Anion Gap 6 mmol/L; Blood Urea Nitrogen 18 mg/dL (9-20); Calcium 8.9 mg/dL (8.4-10.2); Carbon Dioxide 31 mmol/L (22-30); Chloride 103 mmol/L (98-107); Glucose 155 mg/dL (74-99); Non-African American GFR(MDRD) >60 (>60 ml/min/1.73 sqM); Sodium 140 mmol/L (137-145); Total Bilirubin 0.4 mg/dL (0.2-1.3); Total Protein 6.1 g/dL (6.3-8.2)
--- NOTE | 2017-02-07 14:36 | P.PN ---
Subjective Principal diagnosis: Acute exacerbation of chronic bronchial asthma 61-year-old male patient, known history of severe persistent bronchial asthma, was Hospital as because of increased shortness of breath. The patient started having increased dyspnea approximately a week ago. He was treated on outpatient basis with a course of Z-Gonzales without much improvement. This was offered to him for treatment of tracheal bronchitis. He ultimately became more short of breath and bronchospastic and wheezy and he developed significantly congested cough and he ended up coming to the emergency department where he was hospitalized for further evaluation and management. Chest x-ray is free of any acute pulmonary infiltrates. He is known to have coronary artery disease and he has undergone previous coronary artery stenting that was done in November 2015. Note that the patient has been maintained on a combination of Breo Ellipta , theophylline and Singulair and Shelly and 10 mg of prednisone a daily basis. He was also receiving neb last tubes are macerated basis. He is known to have obstructive sleep apnea and he was not using his CPAP machine as the patient was uncomfortable with the mask. He has various other medical [place] comorbidities in addition. He is an ex-smoker. No DVT. No pulmonary embolism. No swelling lower extremities. The patient is seen again today 02/07/2017 in follow-up on the regular medical floor. He is resting more comfortably in bed today as compared to yesterday. His cough has settled down. His breathing has improved but still not quite back to his baseline. He remains dyspneic on minimal exertion. He is maintaining good O2 saturations in the low 90s on 2 L/m per nasal cannula. He is afebrile. Hemodynamically stable. Objective - Vital Signs Vital signs: Vital Signs Temp 97.0 F L 02/07/17 07:00 Pulse 80 02/07/17 13:40 Resp 20 02/07/17 07:00 BP 136/74 02/07/17 07:00 Pulse Ox 94 L 02/07/17 11:18 Intake & Output 02/06/17 02/07/17 02/07/17 18:59 06:59 18:59 Intake Total 300 480 Balance 300 480 Intake: Oral 300 480 Other: Voiding Method Urinal Urinal # Voids 1 1 3 - Exam GENERAL EXAM: Alert, active, comfortable in no apparent distress. HEAD: Normocephalic. EYES: Normal reaction of pupils, equal size. NOSE: Clear with pink turbinates. THROAT: No erythema or exudates. NECK: No masses, no JVD. CHEST: No chest wall deformity. LUNGS: Equal air entry with bilateral end expiratory wheeze. Diminished. CVS: S1 and S2 normal with no audible murmurs, regular rhythm. ABDOMEN: No hepatosplenomegaly, normal bowel sounds, no guarding or rigidity. SPINE: No scoliosis or deformity SKIN: No rashes CENTRAL NERVOUS SYSTEM: No focal deficits, tone is normal in all 4 extremities. Extremities: There is trace peripheral edema. No clubbing, no cyanosis. Peripheral pulses are intact. - Labs CBC & Chem 7: 02/07/17 10:03 02/07/17 10:03 Labs: Abnormal Lab Results - Last 24 Hours (Table) 02/07/17 02/07/17 Range/Units 10:03 10:03 WBC 12.5 H (3.8-10.6) k/uL RBC 4.05 L (4.30-5.90) m/uL MCV 103.1 H (80.0-100.0) fL Neutrophils # 11.4 H (1.3-7.7) k/uL Lymphocytes # 0.7 L (1.0-4.8) k/uL Carbon Dioxide 31 H (22-30) mmol/L Glucose 155 H (74-99) mg/dL Total Protein 6.1 L (6.3-8.2) g/dL Microbiology - Last 24 Hours (Table) 02/05/17 22:15 Blood Culture - Preliminary Blood No Growth after 24 hours Assessment and Plan Plan: 1 acute bronchial asthma exacerbation secondary to tracheal bronchitis 2 Severe persistent bronchial asthma, details discussed above and the patient has been maintained on a combination of medications including Breo , theophylline, Singulair and Shelly in addition to Xopenex tablets treatment on as-needed basis. The patient used to be on Xolair the past 3 coronary artery disease 4 obstructive sleep apnea. 5 obesity 6 hyperlipidemia 7 hypertension 8 osteoarthritis 9 chronic back pain 10 GERD Plan The patient was seen and evaluated by Dr. Lo. We'll continue with his current treatment for his asthma exacerbation and tracheobronchitis. He remains on azithromycin, IV Solu-Medrol, bronchodilators including Perforomist and Pulmicort inhalations. He was started on Tussionex for the cough which is improved. He's on his Singulair and theophylline as well. We'll increase his activity as tolerated. We'll continue to follow and make further recommendations based on his clinical status.
[2017-02-07] MEDS: MONTELUKAST 10 MG TAB PO SCH (22:04)
[2017-02-07] MEDS: TEMAZEPAM 30 MG CAP PO SCH (22:05)
[2017-02-08] MEDS: HYDROcodone/APAP 10-325MG 1 EACH TAB PO SCH ×5 (00:25→22:49)
[2017-02-08] MEDS: methylPREDNISolone SOD SUCCI 125 MG/2 ML VIAL IV SCH ×4 (06:41→23:47)
[2017-02-08] MEDS: CHLORPHEN-HYDROcod 8-10mg/5ml 5 ML ORAL.SYRG PO SCH ×2 (06:41→15:31)
[2017-02-08] MEDS: LEVOTHYROXINE 25 MCG TAB PO SCH (06:41)
[2017-02-08] MEDS: SODIUM CHLORIDE 0.9% 1,000 ML IV SCH (06:42)
[2017-02-08] MEDS: METOPROLOL TARTRATE 25 MG TAB PO SCH ×2 (07:34→20:35)
[2017-02-08] MEDS: POTASSIUM CHLORIDE ER 10 MEQ TAB.ER.PRT PO SCH (07:34)
[2017-02-08] MEDS: MINOXIDIL 10 MG TAB PO SCH ×2 (07:34→20:35)
[2017-02-08] MEDS: ASPIRIN 81 MG CHEW PO SCH (07:35)
[2017-02-08] MEDS: amLODIPine 10 MG TAB PO SCH (07:35)
[2017-02-08] MEDS: HEPARIN SODIUM,PORCINE 5,000 UNIT/ML 1 ML VIAL SQ SCH ×2 (07:35→20:35)
[2017-02-08] MEDS: CLOPIDOGREL 75 MG TAB PO SCH (07:35)
[2017-02-08] MEDS: AZITHROMYCIN 500 MG TAB PO SCH (07:35)
[2017-02-08] MEDS: FUROSEMIDE 40 MG TAB PO SCH (07:35)
[2017-02-08] MEDS: cloNIDine HCL 0.1 MG TAB PO SCH ×3 (07:35→20:36)
[2017-02-08] MEDS: LOSARTAN-HCTZ 50-12.5 MG 1 EACH TAB PO SCH (07:35)
[2017-02-08] MEDS: hydrALAZINE HCL 50 MG TAB PO SCH ×3 (07:35→23:47)
[2017-02-08] MEDS: THEOPHYLLINE 24 HOUR 400 MG CAP.ER.24H PO SCH (07:36)
[2017-02-08] MEDS: IPRATROPIUM-ALBUTEROL 3 ML NEB INHALATION SCH ×4 (08:13→19:54)
[2017-02-08] MEDS: BUDESONIDE 0.5 MG/2 ML NEBU INHALATION SCH ×2 (08:13→19:54)
[2017-02-08] MEDS ORDERED: DOCUSATE 100 MG CAP PO PRN (08:24)
--- NOTE | 2017-02-08 09:18 | P.PN ---
Subjective A 61-year-old male sitting up in bed states breathing feels slightly improved. Patient states he's able to walk in the hallway this morning with less shortness of breath. Patient continues to have intermittent episodes of wheezing Patients being followed by pulmonary service being treated for an acute bronchial asthma exacerbation secondary to tracheobronchitis oxygen is being titrated down currently on room air at rest sats are 92% Objective - Vital Signs Vital signs: Vital Signs Temp 96.7 F L 02/08/17 07:00 Pulse 76 02/08/17 08:36 Resp 20 02/08/17 07:00 BP 131/66 02/08/17 07:00 Pulse Ox 92 L 02/08/17 07:00 Intake & Output 02/07/17 02/08/17 02/08/17 18:59 06:59 18:59 Intake Total 720 640 480 Balance 720 640 480 Intake: Oral 720 640 480 Other: Voiding Method Urinal Toilet Toilet Urinal Urinal # Voids 3 1 - Exam Physical exam 61-year-old male patient just returned from walking in the hallway states breathing feels improved but continues to have episodes where audible wheezing is noted Lungs diminished at the bases poor air entry bilateral expiratory wheezing noted dry nonproductive cough noted on room air at rest sats are 92% no cough Heart S1-S2 audible and regular no murmur noted Abdomen soft nontender reports no frequent stooling no difficulty in urinating no nausea Extremities no edema noted - Labs CBC & Chem 7: 02/07/17 10:03 02/07/17 10:03 Labs: Abnormal Lab Results - Last 24 Hours (Table) 02/07/17 02/07/17 Range/Units 10:03 10:03 WBC 12.5 H (3.8-10.6) k/uL RBC 4.05 L (4.30-5.90) m/uL MCV 103.1 H (80.0-100.0) fL Neutrophils # 11.4 H (1.3-7.7) k/uL Lymphocytes # 0.7 L (1.0-4.8) k/uL Carbon Dioxide 31 H (22-30) mmol/L Glucose 155 H (74-99) mg/dL Total Protein 6.1 L (6.3-8.2) g/dL Microbiology - Last 24 Hours (Table) 02/05/17 22:15 Blood Culture - Preliminary Blood No Growth after 48 hours Assessment and Plan Plan: Impression Present on admission shortness of breath multifactorial due to acute bronchial asthma exacerbation secondary to tracheal bronchitis with severe persistent bronchial asthma Obstructive sleep apnea Obesity BMI 32 Chronic back pain Severe persistent bronchial asthma Osteoarthritis Hyperlipidemia Present on admission exhilarated hypertension History of tobacco abuse quit 1 year ago prior to that greater than a 40 year history 1-2 pack a day Known coronary artery disease with prior coronary stenting Hypothyroid Plan Continue recommendations by pulmonology service defer to Titrate the O2 down keep the sats greater than 90 DVT and GI prophylaxis Resume home meds as appropriate Monitor blood pressure and heart rate adjust the antihypertensive meds as indicated Continue zithomax 500 mg daily Continue duoneb respiratory treatments as ordered, Continue Solu-Medrol 60 mg IV every 6 per pulmonary The above dictated assessment and findings were discussed with dr de dios . Impression and the plan of care have been dictated as directed. Dana Montesinos nurse practitioner acting as a scribe for dr de dios.
[2017-02-08 09:49] LABS: Basophils % (A) 0 %; CH 34.8; CHCM 33.7; Eosinophils % (A) 0 %; HCT 45.1 % (39.0-53.0); HDW 2.35; HGB 14.7 gm/dL (13.0-17.5); Luc # (Auto) 0.04; Luc % (Auto) 0; Lymphocytes # (A) 0.7 k/uL (1.0-4.8); Lymphocytes % (A) 6 %; MCH 33.8 pg (25.0-35.0); MCHC 32.7 g/dL (31.0-37.0); MCV 103.6 fL (80.0-100.0); Macrocytosis Slight; Mean Platelet Volume 7.7; Monocytes # (A) 0.3 k/uL (0-1.0); Monocytes % (A) 3 %; Neutrophils # (A) 11.8 k/uL (1.3-7.7); Neutrophils % (A) 91 %; RBC 4.35 m/uL (4.30-5.90); RDW 13.3 % (11.5-15.5); WBC (Perox) 12.71
[2017-02-08 09:55] LABS: ALT 26 U/L (21-72); AST 22 U/L (17-59); Alkaline Phosphatase 68 U/L (38-126); Anion Gap 12 mmol/L; Blood Urea Nitrogen 20 mg/dL (9-20); Calcium 9.1 mg/dL (8.4-10.2); Carbon Dioxide 30 mmol/L (22-30); Chloride 99 mmol/L (98-107); Glucose 188 mg/dL (74-99); Non-African American GFR(MDRD) >60 (>60 ml/min/1.73 sqM); Potassium 3.6 mmol/L (3.5-5.1); Sodium 141 mmol/L (137-145); Total Bilirubin 0.6 mg/dL (0.2-1.3); Total Protein 6.5 g/dL (6.3-8.2)
--- NOTE | 2017-02-08 14:36 | P.PN ---
Subjective 61-year-old male patient, known history of severe persistent bronchial asthma, was Hospital as because of increased shortness of breath. The patient started having increased dyspnea approximately a week ago. He was treated on outpatient basis with a course of Z-Gonzales without much improvement. This was offered to him for treatment of tracheal bronchitis. He ultimately became more short of breath and bronchospastic and wheezy and he developed significantly congested cough and he ended up coming to the emergency department where he was hospitalized for further evaluation and management. Chest x-ray is free of any acute pulmonary infiltrates. He is known to have coronary artery disease and he has undergone previous coronary artery stenting that was done in November 2015. Note that the patient has been maintained on a combination of Breo Ellipta , theophylline and Singulair and Shelly and 10 mg of prednisone a daily basis. He was also receiving neb last tubes are macerated basis. He is known to have obstructive sleep apnea and he was not using his CPAP machine as the patient was uncomfortable with the mask. He has various other medical [place] comorbidities in addition. He is an ex-smoker. No DVT. No pulmonary embolism. No swelling lower extremities. The patient is seen again today 02/07/2017 in follow-up on the regular medical floor. He is resting more comfortably in bed today as compared to yesterday. His cough has settled down. His breathing has improved but still not quite back to his baseline. He remains dyspneic on minimal exertion. He is maintaining good O2 saturations in the low 90s on 2 L/m per nasal cannula. He is afebrile. Hemodynamically stable. On 02/08/2017 the patient is improving slowly. Still bronchospastic and wheezy. Still having congested cough. Recovery is limited although the patient is improving. No fever. No chills. No chest pain. No major swelling in lower extremities. Hemodynamically stable. Objective - Vital Signs Vital signs: Vital Signs Temp 96.7 F L 02/08/17 07:00 Pulse 80 02/08/17 12:20 Resp 20 02/08/17 07:00 BP 131/66 02/08/17 07:00 Pulse Ox 92 L 02/08/17 07:00 Intake & Output 02/07/17 02/08/17 02/08/17 18:59 06:59 18:59 Intake Total 720 640 480 Balance 720 640 480 Intake: Oral 720 640 480 Other: Voiding Method Urinal Toilet Toilet Urinal Urinal # Voids 3 1 3 - Exam GENERAL EXAM: Alert, active, comfortable in no apparent distress. HEAD: Normocephalic. EYES: Normal reaction of pupils, equal size. NOSE: Clear with pink turbinates. THROAT: No erythema or exudates. NECK: No masses, no JVD. CHEST: No chest wall deformity. LUNGS: Equal air entry with bilateral end expiratory wheeze. Diminished. CVS: S1 and S2 normal with no audible murmurs, regular rhythm. ABDOMEN: No hepatosplenomegaly, normal bowel sounds, no guarding or rigidity. SPINE: No scoliosis or deformity SKIN: No rashes CENTRAL NERVOUS SYSTEM: No focal deficits, tone is normal in all 4 extremities. Extremities: There is trace peripheral edema. No clubbing, no cyanosis. Peripheral pulses are intact. - Labs CBC & Chem 7: 02/08/17 08:32 02/08/17 08:32 Labs: Abnormal Lab Results - Last 24 Hours (Table) 02/08/17 02/08/17 Range/Units 08:32 08:32 WBC 13.0 H (3.8-10.6) k/uL MCV 103.6 H (80.0-100.0) fL Neutrophils # 11.8 H (1.3-7.7) k/uL Lymphocytes # 0.7 L (1.0-4.8) k/uL Glucose 188 H (74-99) mg/dL Microbiology - Last 24 Hours (Table) 02/05/17 22:15 Blood Culture - Preliminary Blood No Growth after 48 hours Assessment and Plan Plan: 1 acute bronchial asthma exacerbation secondary to tracheal bronchitis 2 Severe persistent bronchial asthma, details discussed above and the patient has been maintained on a combination of medications including Breo , theophylline, Singulair and Shelly in addition to Xopenex tablets treatment on as-needed basis. The patient used to be on Xolair the past 3 coronary artery disease 4 obstructive sleep apnea. 5 obesity 6 hyperlipidemia 7 hypertension 8 osteoarthritis 9 chronic back pain 10 GERD Plan Patient continues to be symptomatic and he shows only modest response to the above-mentioned treatment. We'll continue the same treatment. We'll continue to follow. Blood work shows no major abnormalities other than some mild leukocytosis.
[2017-02-08] MEDS: MONTELUKAST 10 MG TAB PO SCH (20:36)
[2017-02-08] MEDS: TEMAZEPAM 30 MG CAP PO SCH (22:49)
[2017-02-09] MEDS: SODIUM CHLORIDE 0.9% 1,000 ML IV SCH (02:07)
[2017-02-09] MEDS: CHLORPHEN-HYDROcod 8-10mg/5ml 5 ML ORAL.SYRG PO SCH ×3 (05:00→15:54)
[2017-02-09] MEDS: methylPREDNISolone SOD SUCCI 125 MG/2 ML VIAL IV SCH ×3 (05:58→17:39)
[2017-02-09] MEDS: LEVOTHYROXINE 25 MCG TAB PO SCH (06:27)
[2017-02-09] MEDS: BUDESONIDE 0.5 MG/2 ML NEBU INHALATION SCH ×2 (07:27→19:15)
[2017-02-09] MEDS: IPRATROPIUM-ALBUTEROL 3 ML NEB INHALATION SCH ×4 (07:27→19:15)
[2017-02-09] MEDS: cloNIDine HCL 0.1 MG TAB PO SCH ×3 (08:14→22:12)
[2017-02-09] MEDS: HYDROcodone/APAP 10-325MG 1 EACH TAB PO SCH ×4 (08:14→22:13)
[2017-02-09] MEDS: MINOXIDIL 10 MG TAB PO SCH ×2 (08:15→22:12)
[2017-02-09] MEDS: LOSARTAN-HCTZ 50-12.5 MG 1 EACH TAB PO SCH (08:15)
[2017-02-09] MEDS: CLOPIDOGREL 75 MG TAB PO SCH (08:16)
[2017-02-09] MEDS: ASPIRIN 81 MG CHEW PO SCH (08:16)
[2017-02-09] MEDS: THEOPHYLLINE 24 HOUR 400 MG CAP.ER.24H PO SCH (08:16)
[2017-02-09] MEDS: hydrALAZINE HCL 50 MG TAB PO SCH ×3 (08:16→22:14)
[2017-02-09] MEDS: FUROSEMIDE 40 MG TAB PO SCH (08:16)
[2017-02-09] MEDS: METOPROLOL TARTRATE 25 MG TAB PO SCH ×2 (08:16→22:12)
[2017-02-09] MEDS: POTASSIUM CHLORIDE ER 10 MEQ TAB.ER.PRT PO SCH (08:16)
[2017-02-09] MEDS: AZITHROMYCIN 500 MG TAB PO SCH (08:21)
[2017-02-09] MEDS: amLODIPine 10 MG TAB PO SCH (08:21)
[2017-02-09] MEDS: HEPARIN SODIUM,PORCINE 5,000 UNIT/ML 1 ML VIAL SQ SCH ×2 (08:21→22:12)
[2017-02-09] MEDS ORDERED: ERGOCALCIFEROL 50,000 UNIT CAP PO SCH (09:00)
[2017-02-09 09:33] LABS: Basophils % (A) 0 %; CH 35.3; CHCM 34.2; Eosinophils % (A) 0 %; HCT 45.6 % (39.0-53.0); HDW 2.32; HGB 15.1 gm/dL (13.0-17.5); Luc # (Auto) 0.06; Luc % (Auto) 1; Lymphocytes # (A) 0.7 k/uL (1.0-4.8); Lymphocytes % (A) 6 %; MCH 34.4 pg (25.0-35.0); MCHC 33.2 g/dL (31.0-37.0); MCV 103.6 fL (80.0-100.0); Macrocytosis Slight; Mean Platelet Volume 7.6; Monocytes # (A) 0.3 k/uL (0-1.0); Monocytes % (A) 2 %; Neutrophils % (A) 90 %; RDW 13.2 % (11.5-15.5); WBC (Perox) 11.53
[2017-02-09 09:42] LABS: ALT 33 U/L (21-72); AST 25 U/L (17-59); Alkaline Phosphatase 71 U/L (38-126); Anion Gap 9 mmol/L; Blood Urea Nitrogen 22 mg/dL (9-20); Calcium 8.9 mg/dL (8.4-10.2); Carbon Dioxide 33 mmol/L (22-30); Chloride 97 mmol/L (98-107); Glucose 175 mg/dL (74-99); Non-African American GFR(MDRD) >60 (>60 ml/min/1.73 sqM); Potassium 3.7 mmol/L (3.5-5.1); Sodium 139 mmol/L (137-145); Total Bilirubin 0.6 mg/dL (0.2-1.3); Total Protein 6.6 g/dL (6.3-8.2)
--- NOTE | 2017-02-09 14:10 | P.PN ---
Subjective Acute COPD exacerbation and bronchitis Patient reports improvement in his breathing. Still having a productive cough. Denies any chest pain. Denies any nausea or vomiting. Reports regular bowel movements. Denies any difficulty urinating. Currently off of oxygen. But still having some wheezing and does not feel ready for discharge Objective - Vital Signs Vital signs: Vital Signs Temp 97.7 F 02/09/17 07:00 Pulse 72 02/09/17 11:45 Resp 19 02/09/17 08:00 BP 158/74 02/09/17 07:00 Pulse Ox 93 L 02/09/17 07:27 Intake & Output 02/08/17 02/09/17 02/09/17 18:59 06:59 18:59 Intake Total 480 Balance 480 Intake: Oral 480 Other: Voiding Method Toilet Toilet Urinal Urinal # Voids 3 1 2 - Exam Head normocephalic Neck supple Lungs wheezing bilaterally Heart regular rate and rhythm S1-S2, no rub or gallop Abdomen is soft nontender nondistended positive bowel sounds no hepatosplenomegaly Extremities no edema Neuro alert and orientated to 3 - Labs CBC & Chem 7: 02/09/17 08:22 02/09/17 08:22 Labs: Abnormal Lab Results - Last 24 Hours (Table) 02/09/17 02/09/17 Range/Units 08:22 08:22 WBC 11.0 H (3.8-10.6) k/uL MCV 103.6 H (80.0-100.0) fL Neutrophils # 10.0 H (1.3-7.7) k/uL Lymphocytes # 0.7 L (1.0-4.8) k/uL Chloride 97 L (98-107) mmol/L Carbon Dioxide 33 H (22-30) mmol/L BUN 22 H (9-20) mg/dL Glucose 175 H (74-99) mg/dL Microbiology - Last 24 Hours (Table) 02/05/17 22:15 Blood Culture - Preliminary Blood No Growth after 72 hours Assessment and Plan Plan: 1. Acute severe persistent bronchial asthma exacerbation secondary to tracheobronchitis. Continue nebulizer treatments and IV Solu-Medrol. Pulmonate service following 2. Acute tracheobronchitis: Continue azithromycin 3. Accelerated hypertension on admission with history of essential hypertension : blood pressures improved continue with his Catapres patch hydralazine, losartan, hydrochlorothiazide, metoprolol and minoxidil. Blood pressure stable 4. Hypothyroidism continue Synthroid 5. Obstructive sleep apnea 6. Coronary artery disease with cardiac stent continue Plavix DVT prophylaxis subcu heparin and GI prophylaxis Encouraged ambulation and increased activity I performed an examination of the patient and discussed their management with the physician [employer] Coord[employer]. I have reviewed the Physician [employer] Coordinator's notes and agree with the documented findings and plan of care
--- NOTE | 2017-02-09 16:21 | P.PN ---
Subjective Principal diagnosis: Acute exacerbation of severe persistent bronchial asthma 61-year-old male patient, known history of severe persistent bronchial asthma, was Hospital as because of increased shortness of breath. The patient started having increased dyspnea approximately a week ago. He was treated on outpatient basis with a course of Z-Gonzales without much improvement. This was offered to him for treatment of tracheal bronchitis. He ultimately became more short of breath and bronchospastic and wheezy and he developed significantly congested cough and he ended up coming to the emergency department where he was hospitalized for further evaluation and management. Chest x-ray is free of any acute pulmonary infiltrates. He is known to have coronary artery disease and he has undergone previous coronary artery stenting that was done in November 2015. Note that the patient has been maintained on a combination of Breo Ellipta , theophylline and Singulair and Shelly and 10 mg of prednisone a daily basis. He was also receiving neb last tubes are macerated basis. He is known to have obstructive sleep apnea and he was not using his CPAP machine as the patient was uncomfortable with the mask. He has various other medical [place] comorbidities in addition. He is an ex-smoker. No DVT. No pulmonary embolism. No swelling lower extremities. The patient is seen again today 02/07/2017 in follow-up on the regular medical floor. He is resting more comfortably in bed today as compared to yesterday. His cough has settled down. His breathing has improved but still not quite back to his baseline. He remains dyspneic on minimal exertion. He is maintaining good O2 saturations in the low 90s on 2 L/m per nasal cannula. He is afebrile. Hemodynamically stable. On 02/08/2017 the patient is improving slowly. Still bronchospastic and wheezy. Still having congested cough. Recovery is limited although the patient is improving. No fever. No chills. No chest pain. No major swelling in lower extremities. Hemodynamically stable. On 02/09/2017, patient remains bronchospastic and wheezy, continues to have congestion and some cough. Improvement is rather minimal over the last 24 hours. Patient is maximized on all medications and bronchodilators including IV steroids. CBC is relatively normal basic metabolic profile is relatively normal. Objective - Vital Signs Vital signs: Vital Signs Temp 97.5 F L 02/09/17 15:00 Pulse 68 02/09/17 15:49 Resp 18 02/09/17 15:41 BP 156/75 02/09/17 15:00 Pulse Ox 92 L 02/09/17 15:00 Intake & Output 02/08/17 02/09/17 02/09/17 18:59 06:59 18:59 Intake Total 480 Balance 480 Intake: Oral 480 Other: Voiding Method Toilet Toilet Urinal Urinal # Voids 3 1 3 # Bowel Movements 1 - Exam Physical Exam: Revealed a 61-year-old white male, cushingoid, in no distress. HEENT:[Neck is supple.] [No neck masses.] [No thyromegaly.] [No JVD.] Chest: [Diffuse rhonchi and wheezes noted bilaterally.] Cardiac Exam: [Normal S1 and S2, no S3 gallop, no murmur.] Abdomen: [Soft, nontender, no megaly, no rebound, no guarding, normal bowel sounds.] Extremities: [No clubbing, no edema, no cyanosis.] Neurological Exam: [No focal neurologic deficit.] - Labs CBC & Chem 7: 02/09/17 08:22 02/09/17 08:22 Labs: Abnormal Lab Results - Last 24 Hours (Table) 02/09/17 02/09/17 Range/Units 08:22 08:22 WBC 11.0 H (3.8-10.6) k/uL MCV 103.6 H (80.0-100.0) fL Neutrophils # 10.0 H (1.3-7.7) k/uL Lymphocytes # 0.7 L (1.0-4.8) k/uL Chloride 97 L (98-107) mmol/L Carbon Dioxide 33 H (22-30) mmol/L BUN 22 H (9-20) mg/dL Glucose 175 H (74-99) mg/dL Microbiology - Last 24 Hours (Table) 02/05/17 22:15 Blood Culture - Preliminary Blood No Growth after 72 hours Assessment and Plan Plan: 1 acute bronchial asthma exacerbation secondary to tracheal bronchitis 2 Severe persistent bronchial asthma, details discussed above and the patient has been maintained on a combination of medications including Breo , theophylline, Singulair and Shelly in addition to Xopenex tablets treatment on as-needed basis. The patient used to be on Xolair the past 3 coronary artery disease 4 obstructive sleep apnea. 5 obesity 6 hyperlipidemia 7 hypertension 8 osteoarthritis 9 chronic back pain 10 GERD Recommendation: Continue present course of bronchodilators, antibiotics, steroids, patient is not ready for discharge planning at this point. We'll continue to follow. Time with Patient: Less than 30
[2017-02-09] MEDS: MONTELUKAST 10 MG TAB PO SCH (22:13)
[2017-02-09] MEDS: TEMAZEPAM 30 MG CAP PO SCH (22:14)
[2017-02-10] MEDS: methylPREDNISolone SOD SUCCI 125 MG/2 ML VIAL IV SCH ×4 (00:48→12:42)
[2017-02-10] MEDS: CHLORPHEN-HYDROcod 8-10mg/5ml 5 ML ORAL.SYRG PO SCH ×2 (03:50→16:46)
[2017-02-10] MEDS: SODIUM CHLORIDE 0.9% 1,000 ML IV SCH (03:53)
[2017-02-10] MEDS: LEVOTHYROXINE 25 MCG TAB PO SCH (06:28)
[2017-02-10] MEDS: BUDESONIDE 0.5 MG/2 ML NEBU INHALATION SCH ×2 (06:52→19:18)
[2017-02-10] MEDS: IPRATROPIUM-ALBUTEROL 3 ML NEB INHALATION SCH ×4 (06:52→19:18)
[2017-02-10 08:34] LABS: Basophils # (A) 0.1 k/uL (0-0.2); Basophils % (A) 1 %; CHCM 34.4; Eosinophils % (A) 0 %; HCT 46.5 % (39.0-53.0); HDW 2.37; HGB 15.5 gm/dL (13.0-17.5); Luc # (Auto) 0.07; Luc % (Auto) 1; Lymphocytes # (A) 0.8 k/uL (1.0-4.8); Lymphocytes % (A) 6 %; MCHC 33.3 g/dL (31.0-37.0); MCV 102.1 fL (80.0-100.0); Macrocytosis Slight; Mean Platelet Volume 7.6; Monocytes # (A) 0.5 k/uL (0-1.0); Monocytes % (A) 4 %; Neutrophils # (A) 10.5 k/uL (1.3-7.7); Neutrophils % (A) 89 %; RBC 4.56 m/uL (4.30-5.90); RDW 13.2 % (11.5-15.5); WBC 11.8 k/uL (3.8-10.6); WBC (Perox) 12.19
[2017-02-10 08:42] LABS: ALT 38 U/L (21-72); AST 25 U/L (17-59); Alkaline Phosphatase 71 U/L (38-126); Anion Gap 8 mmol/L; Blood Urea Nitrogen 24 mg/dL (9-20); Calcium 9.1 mg/dL (8.4-10.2); Carbon Dioxide 39 mmol/L (22-30); Chloride 95 mmol/L (98-107); Glucose 135 mg/dL (74-99); Non-African American GFR(MDRD) >60 (>60 ml/min/1.73 sqM); Potassium 3.8 mmol/L (3.5-5.1); Sodium 142 mmol/L (137-145); Total Bilirubin 0.7 mg/dL (0.2-1.3); Total Protein 6.9 g/dL (6.3-8.2)
[2017-02-10] MEDS: hydrALAZINE HCL 50 MG TAB PO SCH ×3 (08:45→22:32)
[2017-02-10] MEDS: amLODIPine 10 MG TAB PO SCH (08:46)
[2017-02-10] MEDS: CLOPIDOGREL 75 MG TAB PO SCH (08:46)
[2017-02-10] MEDS: ASPIRIN 81 MG CHEW PO SCH (08:46)
[2017-02-10] MEDS: POTASSIUM CHLORIDE ER 10 MEQ TAB.ER.PRT PO SCH (08:46)
[2017-02-10] MEDS: AZITHROMYCIN 500 MG TAB PO SCH (08:46)
[2017-02-10] MEDS: cloNIDine HCL 0.1 MG TAB PO SCH ×3 (08:46→22:32)
[2017-02-10] MEDS: LOSARTAN-HCTZ 50-12.5 MG 1 EACH TAB PO SCH (08:46)
[2017-02-10] MEDS: THEOPHYLLINE 24 HOUR 400 MG CAP.ER.24H PO SCH (08:46)
[2017-02-10] MEDS: METOPROLOL TARTRATE 25 MG TAB PO SCH ×2 (08:46→22:33)
[2017-02-10] MEDS: FUROSEMIDE 40 MG TAB PO SCH (08:46)
[2017-02-10] MEDS: HEPARIN SODIUM,PORCINE 5,000 UNIT/ML 1 ML VIAL SQ SCH ×2 (08:47→22:33)
[2017-02-10] MEDS: MINOXIDIL 10 MG TAB PO SCH ×2 (08:47→22:33)
[2017-02-10] MEDS: HYDROcodone/APAP 10-325MG 1 EACH TAB PO SCH ×4 (08:50→22:36)
--- NOTE | 2017-02-10 14:54 | P.PN ---
Subjective Principal diagnosis: Acute exacerbation of chronic bronchial asthma 61-year-old male patient, known history of severe persistent bronchial asthma, was Hospital as because of increased shortness of breath. The patient started having increased dyspnea approximately a week ago. He was treated on outpatient basis with a course of Z-Gonzales without much improvement. This was offered to him for treatment of tracheal bronchitis. He ultimately became more short of breath and bronchospastic and wheezy and he developed significantly congested cough and he ended up coming to the emergency department where he was hospitalized for further evaluation and management. Chest x-ray is free of any acute pulmonary infiltrates. He is known to have coronary artery disease and he has undergone previous coronary artery stenting that was done in November 2015. Note that the patient has been maintained on a combination of Breo Ellipta , theophylline and Singulair and Shelly and 10 mg of prednisone a daily basis. He was also receiving neb last tubes are macerated basis. He is known to have obstructive sleep apnea and he was not using his CPAP machine as the patient was uncomfortable with the mask. He has various other medical [place] comorbidities in addition. He is an ex-smoker. No DVT. No pulmonary embolism. No swelling lower extremities. The patient is seen again today 02/07/2017 in follow-up on the regular medical floor. He is resting more comfortably in bed today as compared to yesterday. His cough has settled down. His breathing has improved but still not quite back to his baseline. He remains dyspneic on minimal exertion. He is maintaining good O2 saturations in the low 90s on 2 L/m per nasal cannula. He is afebrile. Hemodynamically stable. On 02/08/2017 the patient is improving slowly. Still bronchospastic and wheezy. Still having congested cough. Recovery is limited although the patient is improving. No fever. No chills. No chest pain. No major swelling in lower extremities. Hemodynamically stable. On 02/09/2017, patient remains bronchospastic and wheezy, continues to have congestion and some cough. Improvement is rather minimal over the last 24 hours. Patient is maximized on all medications and bronchodilators including IV steroids. CBC is relatively normal basic metabolic profile is relatively normal. The patient is seen again today 02/10/2017 in follow-up on the regular medical floor. He is awake and alert in no acute distress. He is nearly back to his baseline. He is anxious to go home. He's been up ambulating without any acute distress. His cough has settled down significantly. He is maintaining good O2 saturations in the 90s on room air. Objective - Vital Signs Vital signs: Vital Signs Temp 97.8 F 02/10/17 07:00 Pulse 70 02/10/17 07:09 Resp 18 02/10/17 07:00 BP 153/62 02/10/17 07:00 Pulse Ox 97 02/10/17 07:00 Intake & Output 02/09/17 02/10/17 02/10/17 18:59 06:59 18:59 Intake Total 480 Balance 480 Intake: Oral 480 Other: Voiding Method Toilet Urinal # Voids 3 1 # Bowel Movements 1 - Exam GENERAL EXAM: Alert, active, comfortable in no apparent distress. HEAD: Normocephalic. EYES: Normal reaction of pupils, equal size. NOSE: Clear with pink turbinates. THROAT: No erythema or exudates. NECK: No masses, no JVD. CHEST: No chest wall deformity. LUNGS: Equal air entry with bilateral end expiratory wheeze. Diminished. CVS: S1 and S2 normal with no audible murmurs, regular rhythm. ABDOMEN: No hepatosplenomegaly, normal bowel sounds, no guarding or rigidity. SPINE: No scoliosis or deformity SKIN: No rashes CENTRAL NERVOUS SYSTEM: No focal deficits, tone is normal in all 4 extremities. Extremities: There is trace peripheral edema. No clubbing, no cyanosis. Peripheral pulses are intact. - Labs CBC & Chem 7: 02/10/17 07:53 02/10/17 07:53 Labs: Abnormal Lab Results - Last 24 Hours (Table) 02/10/17 02/10/17 Range/Units 07:53 07:53 WBC 11.8 H (3.8-10.6) k/uL MCV 102.1 H (80.0-100.0) fL Neutrophils # 10.5 H (1.3-7.7) k/uL Lymphocytes # 0.8 L (1.0-4.8) k/uL Chloride 95 L (98-107) mmol/L Carbon Dioxide 39 H (22-30) mmol/L BUN 24 H (9-20) mg/dL Glucose 135 H (74-99) mg/dL Microbiology - Last 24 Hours (Table) 02/09/17 19:20 Gram Stain - Preliminary Sputum Sputum Culture - Preliminary 02/05/17 22:15 Blood Culture - Preliminary Blood No Growth after 96 hours Assessment and Plan Plan: 1 acute bronchial asthma exacerbation secondary to tracheal bronchitis 2 Severe persistent bronchial asthma, details discussed above and the patient has been maintained on a combination of medications including Breo , theophylline, Singulair and Shelly in addition to Xopenex tablets treatment on as-needed basis. The patient used to be on Xolair the past 3 coronary artery disease 4 obstructive sleep apnea. 5 obesity 6 hyperlipidemia 7 hypertension 8 osteoarthritis 9 chronic back pain 10 GERD Plan The patient was seen and evaluated by Dr. Tello. He is cleared for discharge from the pulmonary standpoint. Continue his home pulmonary medications. He'll continue his course of antibiotics. Continue prednisone taper. Continue Tussionex. Follow up with Dr. Lo in our office in 1-2 weeks' time. He and his are both encouraged however to call sooner with any recurrence of symptoms or other questions or concerns.
[2017-02-10] MEDS ORDERED: methylPREDNISolone SOD SUCCI 40 MG/ML 1 ML VIAL IV STA (16:18)
--- NOTE | 2017-02-10 19:21 | P.PN ---
Subjective Acute COPD exacerbation and bronchitis Patient reports improvement in his breathing. Still having a productive cough. Denies any chest pain. Denies any nausea or vomiting. Reports regular bowel movements. Denies any difficulty urinating. Currently off of oxygen. But still having some wheezing and does not feel ready for discharge Objective - Vital Signs Vital signs: Vital Signs Temp 97.3 F L 02/10/17 14:57 Pulse 66 02/10/17 15:48 Resp 18 02/10/17 14:57 BP 119/59 02/10/17 14:57 Pulse Ox 96 02/10/17 15:34 Intake & Output 02/10/17 02/10/17 02/11/17 06:59 18:59 06:59 Intake Total 480 Balance 480 Intake: Oral 480 Other: # Voids 1 2 # Bowel Movements 0 - Exam Physical Exam: Revealed a 61-year-old white male, cushingoid, in no distress. HEENT:Neck is supple. No neck masses.No thyromegaly.No JVD. Chest: Diffuse rhonchi and wheezes noted bilaterally. Cardiac Exam: Normal S1 and S2, no S3 gallop, no murmur. Abdomen: Soft, nontender, no megaly, no rebound, no guarding, normal bowel sounds. Extremities: No clubbing, no edema, no cyanosis.] Neurological Exam: No focal neurologic deficit. - Labs CBC & Chem 7: 02/10/17 07:53 02/10/17 07:53 Labs: Abnormal Lab Results - Last 24 Hours (Table) 02/10/17 02/10/17 Range/Units 07:53 07:53 WBC 11.8 H (3.8-10.6) k/uL MCV 102.1 H (80.0-100.0) fL Neutrophils # 10.5 H (1.3-7.7) k/uL Lymphocytes # 0.8 L (1.0-4.8) k/uL Chloride 95 L (98-107) mmol/L Carbon Dioxide 39 H (22-30) mmol/L BUN 24 H (9-20) mg/dL Glucose 135 H (74-99) mg/dL Microbiology - Last 24 Hours (Table) 02/09/17 19:20 Gram Stain - Preliminary Sputum Sputum Culture - Preliminary 02/05/17 22:15 Blood Culture - Preliminary Blood No Growth after 96 hours Assessment and Plan Plan: 1. Acute severe persistent bronchial asthma exacerbation secondary to tracheobronchitis. Continue nebulizer treatments and IV Solu-Medrol. Pulmonate service following, patient is still having severe wheezing he will be given an extra dose of Solu-Medrol today is supple discharge to home tomorrow 2. Acute tracheobronchitis: Continue azithromycin 3. Accelerated hypertension on admission with history of essential hypertension : blood pressures improved continue with his Catapres patch hydralazine, losartan, hydrochlorothiazide, metoprolol and minoxidil. Blood pressure stable 4. Hypothyroidism continue Synthroid 5. Obstructive sleep apnea 6. Coronary artery disease with cardiac stent continue Plavix DVT prophylaxis subcu heparin and GI prophylaxis Encouraged ambulation and increased activity
[2017-02-10] MEDS: MONTELUKAST 10 MG TAB PO SCH (22:32)
[2017-02-10] MEDS: TEMAZEPAM 30 MG CAP PO SCH (22:37)
[2017-02-11] MEDS: CHLORPHEN-HYDROcod 8-10mg/5ml 5 ML ORAL.SYRG PO SCH ×2 (06:23→16:04)
[2017-02-11] MEDS: LEVOTHYROXINE 25 MCG TAB PO SCH (06:23)
[2017-02-11] MEDS: SODIUM CHLORIDE 0.9% 1,000 ML IV SCH (06:24)
[2017-02-11] MEDS: IPRATROPIUM-ALBUTEROL 3 ML NEB INHALATION SCH ×3 (07:59→16:01)
[2017-02-11] MEDS: BUDESONIDE 0.5 MG/2 ML NEBU INHALATION SCH (07:59)
[2017-02-11] MEDS: cloNIDine HCL 0.1 MG TAB PO SCH ×2 (08:22→16:04)
[2017-02-11] MEDS: ASPIRIN 81 MG CHEW PO SCH (08:22)
[2017-02-11] MEDS: HEPARIN SODIUM,PORCINE 5,000 UNIT/ML 1 ML VIAL SQ SCH (08:22)
[2017-02-11] MEDS: HYDROcodone/APAP 10-325MG 1 EACH TAB PO SCH ×2 (08:22→12:07)
[2017-02-11] MEDS: CLOPIDOGREL 75 MG TAB PO SCH (08:23)
[2017-02-11] MEDS: amLODIPine 10 MG TAB PO SCH (08:23)
[2017-02-11] MEDS: AZITHROMYCIN 500 MG TAB PO SCH (08:23)
[2017-02-11] MEDS: LOSARTAN-HCTZ 50-12.5 MG 1 EACH TAB PO SCH (08:23)
[2017-02-11] MEDS: hydrALAZINE HCL 50 MG TAB PO SCH ×2 (08:23→16:04)
[2017-02-11] MEDS: FUROSEMIDE 40 MG TAB PO SCH (08:23)
[2017-02-11] MEDS: MINOXIDIL 10 MG TAB PO SCH (08:23)
[2017-02-11] MEDS: THEOPHYLLINE 24 HOUR 400 MG CAP.ER.24H PO SCH (08:24)
[2017-02-11] MEDS: POTASSIUM CHLORIDE ER 10 MEQ TAB.ER.PRT PO SCH (08:24)
[2017-02-11] MEDS: METOPROLOL TARTRATE 25 MG TAB PO SCH (08:24)
[2017-02-11] MEDS ORDERED: predniSONE 20 MG TAB PO SCH (09:00)
[2017-02-11 10:38] LABS: Basophils # (A) 0.1 k/uL (0-0.2); Basophils % (A) 0 %; CH 35.3; CHCM 34.6; Eosinophils % (A) 0 %; HCT 44.9 % (39.0-53.0); HDW 2.34; Luc # (Auto) 0.12; Luc % (Auto) 1; Lymphocytes # (A) 0.8 k/uL (1.0-4.8); Lymphocytes % (A) 5 %; MCH 34.3 pg (25.0-35.0); MCHC 33.5 g/dL (31.0-37.0); MCV 102.5 fL (80.0-100.0); Macrocytosis Slight; Mean Platelet Volume 7.5; Monocytes % (A) 6 %; Neutrophils # (A) 14.6 k/uL (1.3-7.7); Neutrophils % (A) 88 %; RBC 4.38 m/uL (4.30-5.90); RDW 13.1 % (11.5-15.5); WBC 16.5 k/uL (3.8-10.6); WBC (Perox) 16.42
[2017-02-11 11:03] LABS: ALT 35 U/L (21-72); AST 25 U/L (17-59); Alkaline Phosphatase 64 U/L (38-126); Anion Gap 10 mmol/L; Blood Urea Nitrogen 29 mg/dL (9-20); Calcium 8.8 mg/dL (8.4-10.2); Carbon Dioxide 36 mmol/L (22-30); Chloride 94 mmol/L (98-107); Glucose 129 mg/dL (74-99); Non-African American GFR(MDRD) >60 (>60 ml/min/1.73 sqM); Potassium 3.3 mmol/L (3.5-5.1); Sodium 140 mmol/L (137-145); Total Bilirubin 0.8 mg/dL (0.2-1.3); Total Protein 6.5 g/dL (6.3-8.2)
--- NOTE | 2017-02-11 13:47 | P.PN ---
Subjective Principal diagnosis: Acute exacerbation of chronic bronchial asthma 61-year-old male patient, known history of severe persistent bronchial asthma, was Hospital as because of increased shortness of breath. The patient started having increased dyspnea approximately a week ago. He was treated on outpatient basis with a course of Z-Gonzales without much improvement. This was offered to him for treatment of tracheal bronchitis. He ultimately became more short of breath and bronchospastic and wheezy and he developed significantly congested cough and he ended up coming to the emergency department where he was hospitalized for further evaluation and management. Chest x-ray is free of any acute pulmonary infiltrates. He is known to have coronary artery disease and he has undergone previous coronary artery stenting that was done in November 2015. Note that the patient has been maintained on a combination of Breo Ellipta , theophylline and Singulair and Shelly and 10 mg of prednisone a daily basis. He was also receiving neb last tubes are macerated basis. He is known to have obstructive sleep apnea and he was not using his CPAP machine as the patient was uncomfortable with the mask. He has various other medical [place] comorbidities in addition. He is an ex-smoker. No DVT. No pulmonary embolism. No swelling lower extremities. The patient is seen again today 02/07/2017 in follow-up on the regular medical floor. He is resting more comfortably in bed today as compared to yesterday. His cough has settled down. His breathing has improved but still not quite back to his baseline. He remains dyspneic on minimal exertion. He is maintaining good O2 saturations in the low 90s on 2 L/m per nasal cannula. He is afebrile. Hemodynamically stable. On 02/08/2017 the patient is improving slowly. Still bronchospastic and wheezy. Still having congested cough. Recovery is limited although the patient is improving. No fever. No chills. No chest pain. No major swelling in lower extremities. Hemodynamically stable. On 02/09/2017, patient remains bronchospastic and wheezy, continues to have congestion and some cough. Improvement is rather minimal over the last 24 hours. Patient is maximized on all medications and bronchodilators including IV steroids. CBC is relatively normal basic metabolic profile is relatively normal. The patient is seen again today 02/10/2017 in follow-up on the regular medical floor. He is awake and alert in no acute distress. He is nearly back to his baseline. He is anxious to go home. He's been up ambulating without any acute distress. His cough has settled down significantly. He is maintaining good O2 saturations in the 90s on room air. The patient is seen again today 02/11/2017 in follow-up on the regular medical floor. He is nearly back to his baseline. He is quite anxious to go home. He did stay another day and does feel better than yesterday. He denies any worsening shortness of breath, cough or congestion. He continues to maintain good O2 saturations in the 90s on room air even while out walking in the hallway. Objective - Vital Signs Vital signs: Vital Signs Temp 97.0 F L 02/11/17 07:00 Pulse 72 02/11/17 12:09 Resp 20 02/11/17 08:34 BP 145/71 02/11/17 07:00 Pulse Ox 92 L 02/11/17 08:34 Intake & Output 02/10/17 02/11/17 02/11/17 18:59 06:59 18:59 Intake Total 480 480 200 Balance 480 480 200 Intake: Oral 480 480 200 Other: Voiding Method Toilet Urinal # Voids 2 1 # Bowel Movements 0 - Exam GENERAL EXAM: Alert, active, comfortable in no apparent distress. HEAD: Normocephalic. EYES: Normal reaction of pupils, equal size. NOSE: Clear with pink turbinates. THROAT: No erythema or exudates. NECK: No masses, no JVD. CHEST: No chest wall deformity. LUNGS: Equal air entry with bilateral end expiratory wheeze. Diminished. CVS: S1 and S2 normal with no audible murmurs, regular rhythm. ABDOMEN: No hepatosplenomegaly, normal bowel sounds, no guarding or rigidity. SPINE: No scoliosis or deformity SKIN: No rashes CENTRAL NERVOUS SYSTEM: No focal deficits, tone is normal in all 4 extremities. Extremities: There is trace peripheral edema. No clubbing, no cyanosis. Peripheral pulses are intact. - Labs CBC & Chem 7: 02/11/17 10:16 02/11/17 10:16 Labs: Abnormal Lab Results - Last 24 Hours (Table) 02/11/17 02/11/17 Range/Units 10:16 10:16 WBC 16.5 H (3.8-10.6) k/uL MCV 102.5 H (80.0-100.0) fL Neutrophils # 14.6 H (1.3-7.7) k/uL Lymphocytes # 0.8 L (1.0-4.8) k/uL Potassium 3.3 L (3.5-5.1) mmol/L Chloride 94 L (98-107) mmol/L Carbon Dioxide 36 H (22-30) mmol/L BUN 29 H (9-20) mg/dL Glucose 129 H (74-99) mg/dL Microbiology - Last 24 Hours (Table) 02/09/17 19:20 Gram Stain - Final Sputum Sputum Culture - Final 02/05/17 22:15 Blood Culture - Preliminary Blood No Growth after 120 hours Assessment and Plan Plan: 1 acute bronchial asthma exacerbation secondary to tracheal bronchitis 2 Severe persistent bronchial asthma, details discussed above and the patient has been maintained on a combination of medications including Breo , theophylline, Singulair and Shelly in addition to Xopenex tablets treatment on as-needed basis. The patient used to be on Xolair the past 3 coronary artery disease 4 obstructive sleep apnea. 5 obesity 6 hyperlipidemia 7 hypertension 8 osteoarthritis 9 chronic back pain 10 GERD Plan The patient was seen and evaluated by Dr. Tello. He is cleared for discharge. Continue his home pulmonary medications. He'll continue his course of antibiotics. Continue prednisone taper. Continue Tussionex. Follow up with Dr. Lo in our office in 1-2 weeks' time. He is encouraged however to call sooner with any recurrence of symptoms or other questions or concerns.
[2017-02-11] MEDS ORDERED: POTASSIUM CHLORIDE ER 20 MEQ TAB.ER PO STA (14:23)
[2017-02-11 15:38] VITALS: BP 142/56; RESP 16; TEMP 97.3
[2017-02-11 16:12] VITALS: PULSE 74
--- NOTE | 2017-02-11 16:46 | P.DS ---
Providers Date of admission: 02/06/17 02:49 Expected date of discharge: 02/11/17 Attending physician: Chris Ervin Consults: 02/06/17 02:49 Consult Physician Routine Consulting Provider: Freddy Lo Consult Reason/Comments: COPD, your patient Do you want consulting provider notified?: Yes Primary care physician: Chris Ervin [place] [facility] Course: Diagnoses on discharge: 1. Acute severe persistent bronchial asthma exacerbation secondary to tracheobronchitis. Continue nebulizer treatments and IV Solu-Medrol. Pulmonate service following, patient is still having severe wheezing he will be given an extra dose of Solu-Medrol today is supple discharge to home tomorrow 2. Acute tracheobronchitis: Continue azithromycin 3. Accelerated hypertension on admission with history of essential hypertension : blood pressures improved continue with his Catapres patch hydralazine, losartan, hydrochlorothiazide, metoprolol and minoxidil. Blood pressure stable 4. Hypothyroidism continue Synthroid 5. Obstructive sleep apnea 6. Coronary artery disease with cardiac stent continue Plavix Hospital course: This is a 61-year-old male with a known history of COPD, hypertension, coronary artery disease with previous cardiac stent and obstructive sleep apnea. He reports to having a productive cough and shortness of breath 1 week. He was started on azithromycin the outpatient setting by his hospital cleaner. Patient reports that he took about 3 days of the antibiotic with no improvement therefore he came into the emergency room for further evaluation and treatment. Chest x-ray showed no acute changes. In the emergency room he was started on prednisone and Zithromax. He did have evidence of accelerated hypertension and received 1 dose of IV hydralazine. D-dimer was negative. Currently on 3 L standing and 94%. Pulmonary service has been consulted patient started on IV steroids and IV antibiotics. He was seen by Dr Tello hospital cleaner and was maintained on IV steroids, he improved and was discharged home on 02/11/2017 Patient Condition at Discharge: Fair Plan - Discharge Summary Discharge Medication List Furosemide [Lasix] 40 mg PO DAILY 03/24/14 [History] Levalbuterol HCl [Xopenex Nebulized] 1.25 mg INHALATION RT-QID PRN 03/24/14 [ History] Losartan/Hydrochlorothiazide [Hyzaar 100-25 Tablet] 1 tab PO DAILY 03/24/14 [ History] Potassium Chloride [Klor-Con 10] 10 meq PO DAILY 03/24/14 [History] Minoxidil 10 mg PO BID 08/28/14 [History] Fexofenadine HCl [Shelly Allergy] 180 mg PO DAILY PRN 11/07/14 [History] hydrALAZINE HCL [Apresoline] 50 mg PO TID 02/08/16 [History] Hydrocodone/Acetaminophen [Hydrocodon-Acetaminophn 10-325] 1 tab PO QID [History] Temazepam 30 mg PO HS 02/12/16 [History] Theophylline Anhydrous [Uniphyl] 200 mg PO BID 02/12/16 [History] cloNIDine HCL 0.3 mg PO TID 02/12/16 [History] Aspirin EC [Ecotrin Low Dose] 81 mg PO DAILY 02/05/17 [History] Azithromycin [Zithromax] 500 mg PO DAILY 02/05/17 [History] Clopidogrel [Plavix] 75 mg PO DAILY 02/05/17 [History] Ergocalciferol [Vitamin D2 (DRISDOL)] 50,000 unit PO MO 02/05/17 [History] Ipratropium Nebulized [Atrovent Nebulized] 0.5 mg INHALATION RT-QID PRN [History] Levothyroxine Sodium [Synthroid] 25 mcg PO DAILY 02/05/17 [History] Metoprolol Tartrate [Lopressor] 25 mg PO BID 02/05/17 [History] Montelukast [Singulair] 10 mg PO HS 02/05/17 [History] Promethazine 6.25MG/5Ml [Phenergan Syrup] 25 mg PO DAILY 02/05/17 [History] amLODIPine [Norvasc] 10 mg PO DAILY 02/05/17 [History] predniSONE 10 mg PO DAILY 02/05/17 [History] predniSONE 40 mg PO DAILY tab 02/11/17 [Rx] Follow up Appointment(s)/Referral(s): Chris Ervin MD [Primary Care Provider] - 1-2 days
== END 2017-02-11 16:59 | disposition home or self-care (01) | DRG 191 ==
LOC: EC 21:18 → 4MS4W 02-06 02:49
PROVIDERS: ADMIT Internal Medicine; ATTEND Internal Medicine
DX: J44.0 Chronic obstructive pulmonary disease with (acute) lower respiratory infection (principal); J45.51 Severe persistent asthma with (acute) exacerbation; I10 Essential (primary) hypertension; J44.1 Chronic obstructive pulmonary disease with (acute) exacerbation; G47.33 Obstructive sleep apnea (adult) (pediatric); J20.9 Acute bronchitis, unspecified; K21.9 Gastro-esophageal reflux disease without esophagitis; I25.10 Atherosclerotic heart disease of native coronary artery without angina pectoris; E78.5 Hyperlipidemia, unspecified; E66.9 Obesity, unspecified; E03.9 Hypothyroidism, unspecified; D72.829 Elevated white blood cell count, unspecified; I83.90 Asymptomatic varicose veins of unspecified lower extremity; K59.09 Other constipation; M54.9 Dorsalgia, unspecified; G89.29 Other chronic pain; M19.90 Unspecified osteoarthritis, unspecified site; Z79.02 Long term (current) use of antithrombotics/antiplatelets; Z79.899 Other long term (current) drug therapy; Z96.652 Presence of left artificial knee joint; Z88.0 Allergy status to penicillin; Z87.891 Personal history of nicotine dependence; Z82.49 Family history of ischemic heart disease and other diseases of the circulatory system; Z95.5 Presence of coronary angioplasty implant and graft; Z68.32 Body mass index [BMI] 32.0-32.9, adult; Z79.52 Long term (current) use of systemic steroids; Z79.82 Long term (current) use of aspirin; Z79.891 Long term (current) use of opiate analgesic; Z79.51 Long term (current) use of inhaled steroids; Z90.49 Acquired absence of other specified parts of digestive tract; Z98.1 Arthrodesis status; Z91.19 Patient's noncompliance with other medical treatment and regimen
CPT/HCPCS: 36415; 71020; 80053; 82550; 82553; 83880; 84484; 85025; 85379; 85610; 85730; 87040; 87070; 87205; 94640; 94760; 99285

== ENCOUNTER 2017-05-09 15:47 | Emergency (ER) | payer MEDICARE ==
[2017-05-09] MEDS ORDERED: KETOROLAC 30 MG/ML 1 ML VIAL IVP STA (16:00)
--- NOTE | 2017-05-09 16:04 | ED ---
Chest Pain HPI - General Chief Complaint: Chest Pain Stated Complaint: severe chest pain Time Seen by Provider: 05/09/17 15:54 Source: patient, family Mode of arrival: wheelchair Limitations: no limitations - History of Present Illness Initial Comments: Is a 61-year-old male history of a cardiac stent also history of asthma who states he woke up this way with some back pain going from the left to right across his back and also left-sided chest pain going down his left arm. Sharp in nature 67/10 severity increases with movement and deep breathing. He states he went to cut the grass today got somewhat worse. He had little bit of shortness of breath with it no cough or phlegm production no fevers chills or sweats. MD Complaint: chest pain - Related Data Home Medications Medication Instructions Recorded Confirmed Furosemide [Lasix] 40 mg PO DAILY 03/24/14 05/09/17 Levalbuterol HCl [Xopenex 1.25 mg INHALATION RT-QID PRN 03/24/14 05/09/17 Nebulized] Losartan/Hydrochlorothiazide 1 tab PO DAILY 03/24/14 05/09/17 [Hyzaar 100-25 Tablet] Potassium Chloride [Klor-Con 10] 10 meq PO DAILY 03/24/14 05/09/17 Minoxidil 10 mg PO BID 08/28/14 05/09/17 Fexofenadine HCl [Shelly Allergy] 180 mg PO DAILY PRN 11/07/14 05/09/17 hydrALAZINE HCL [Apresoline] 50 mg PO TID 02/08/16 05/09/17 Hydrocodone/Acetaminophen 1 tab PO QID 02/12/16 05/09/17 [Hydrocodon-Acetaminophn 10-325] Temazepam 30 mg PO HS 02/12/16 05/09/17 Theophylline Anhydrous [Uniphyl] 200 mg PO BID 02/12/16 05/09/17 cloNIDine HCL 0.3 mg PO TID 02/12/16 05/09/17 Aspirin EC [Ecotrin Low Dose] 81 mg PO DAILY 02/05/17 05/09/17 Clopidogrel [Plavix] 75 mg PO DAILY 02/05/17 05/09/17 Ergocalciferol [Vitamin D2 50,000 unit PO MO 02/05/17 05/09/17 (DRISDOL)] Ipratropium Nebulized [Atrovent 0.5 mg INHALATION RT-QID PRN 02/05/17 05/09/17 Nebulized] Levothyroxine Sodium [Synthroid] 25 mcg PO DAILY 02/05/17 05/09/17 Metoprolol Tartrate [Lopressor] 25 mg PO BID 02/05/17 05/09/17 Montelukast [Singulair] 10 mg PO HS 02/05/17 05/09/17 amLODIPine [Norvasc] 10 mg PO DAILY 02/05/17 05/09/17 predniSONE 10 mg PO DAILY 02/05/17 05/09/17 Previous Rx's Medication Instructions Recorded Ibuprofen [Motrin] 800 mg PO Q6HR PRN #20 tab 05/09/17 Allergies Allergy/AdvReac Type Severity Reaction Status Date / Time arformoterol tartrate Allergy Dyspnea Verified 05/09/17 16:03 [From [facility]] Iodinated Contrast- Oral and Allergy Anaphylaxis Verified 05/09/17 16:03 IV Dye [Iodinated Contrast Media - IV Dye] Penicillins Allergy Dyspnea Verified 05/09/17 16:03 Quinolones Allergy Dyspnea Verified 05/09/17 16:03 vancomycin Allergy Dyspnea Verified 05/09/17 16:03 budesonide [From Symbicort] AdvReac Rash/Hives Verified 05/09/17 16:03 formoterol fumarate AdvReac Rash/Hives Verified 05/09/17 16:03 [From Symbicort] Review of Systems ROS Statement: Those systems with pertinent positive or pertinent negative responses have been documented in the HPI. ROS Other: All systems not noted in ROS Statement are negative. EKG Findings - EKG Results: EKG: interpreted by ERMD, sinus rhythm, normal axis, normal QRS, normal ST/T, no acute changes (Normal sinus rhythm a rate of 63. We'll 136 QRS duration 84 daily since QTC of 400/409 st-t wave changes this is appear to be a normal- appearing EKG) Past Medical History Past Medical History: Asthma, COPD, GERD/Reflux, Hypertension, Osteoarthritis ( OA), Respiratory Disorder, Sleep Apnea/CPAP/BIPAP Additional Past Medical History / Comment(s): Severe persistent bronchial asthma , coronary artery disease, hyperlipidemia, hypertension, obesity, obstructive sleep apnea, osteoarthritis, very closely in the lower extremities, chronic constipation History of Any Multi-Drug Resistant Organisms: None Reported Past Surgical History: Appendectomy, Heart Catheterization With Stent, Hernia Repair, Orthopedic Surgery, Tonsillectomy Additional Past Surgical History / Comment(s): Hernia repair 4, tonsillectomy, appendectomy, bronchoscopy, total left knee replacement 2012, anterior and cervical spinal decompression and fusion at the level of C4-C5, C5-C6 and cardiac catheterization with stent placement Past Anesthesia/Blood Transfusion Reactions: No Reported Reaction Date of Last Stent Placement:: 12/03 Past Psychological History: No Psychological Hx Reported Smoking Status: Former smoker Past Alcohol Use History: None Reported Past Drug Use History: None Reported - Past Family History Mother Family Medical History: Coronary Artery Disease (CAD) Father Family Medical History: Myocardial Infarction (DE) General Exam - General Exam Comments Initial Comments: Is a well-developed well-nourished awake alert oriented times 3 male Limitations: no limitations General appearance: alert, in no apparent distress Head exam: Present: atraumatic, normocephalic, normal inspection Eye exam: Present: normal appearance, PERRL, EOMI. Absent: scleral icterus, conjunctival injection, periorbital swelling ENT exam: Present: normal exam, mucous membranes moist Neck exam: Present: normal inspection. Absent: tenderness, meningismus, lymphadenopathy Respiratory exam: Present: normal lung sounds bilaterally, chest wall tenderness (Reproducible tenderness palpation along the left costal sternal costochondral margin. No step-off no crepitation.). Absent: respiratory distress, wheezes, rales, rhonchi, stridor Cardiovascular Exam: Present: regular rate, normal rhythm, normal heart sounds. Absent: systolic murmur, diastolic murmur, rubs, gallop, clicks GI/Abdominal exam: Present: soft, normal bowel sounds. Absent: distended, tenderness, guarding, rebound, rigid Extremities exam: Present: normal inspection, full ROM, normal capillary refill. Absent: tenderness, pedal edema, joint swelling, calf tenderness Back exam: Present: normal inspection Neurological exam: Present: alert, oriented X3, CN II-XII intact Psychiatric exam: Present: normal affect, normal mood Skin exam: Present: warm, dry, intact, normal color. Absent: rash Course Vital Signs 05/09/17 05/09/17 05/09/17 15:49 16:50 17:00 Temperature 98.1 F Pulse Rate 78 54 L 54 L Respiratory 20 18 18 Rate Blood Pressure 125/58 99/58 108/59 O2 Sat by Pulse 97 95 95 Oximetry Chest Pain MDM - MDM Review the report of x-ray shows improvement since he last x-ray. No evidence of acute infiltrates. The patient is feeling improved I did discuss findings with him the presentation appears be consistent with chest wall pain. He'll be discharged on appropriate medication is a follow-up with his doctor and return when necessary Disposition Clinical Impression: Costalchondritis, Chest wall syndrome Disposition: HOME SELF-CARE Condition: Good Instructions: Costochondritis (ED) Prescriptions: Ibuprofen [Motrin] 800 mg PO Q6HR PRN #20 tab PRN Reason: Pain Referrals: Chris Ervin MD [Primary Care Provider] - 1-2 days
[2017-05-09 16:16] LABS: Basophils # (A) 0.1 k/uL (0-0.2); Basophils % (A) 0 %; CH 35.3; CHCM 35.9; Eosinophils # (A) 0.1 k/uL (0-0.7); Eosinophils % (A) 1 %; HCT 42.4 % (39.0-53.0); HDW 2.56; HGB 15.1 gm/dL (13.0-17.5); Luc # (Auto) 0.26; Luc % (Auto) 2; Lymphocytes # (A) 1.9 k/uL (1.0-4.8); Lymphocytes % (A) 14 %; MCH 35.2 pg (25.0-35.0); MCHC 35.7 g/dL (31.0-37.0); MCV 98.7 fL (80.0-100.0); Mean Platelet Volume 7.6; Monocytes # (A) 1.1 k/uL (0-1.0); Monocytes % (A) 8 %; Neutrophils # (A) 9.8 k/uL (1.3-7.7); Neutrophils % (A) 74 %; RBC 4.29 m/uL (4.30-5.90); RDW 12.6 % (11.5-15.5); WBC 13.2 k/uL (3.8-10.6); WBC (Perox) 12.86
[2017-05-09 16:22] LABS: ALT 35 U/L (21-72); AST 21 U/L (17-59); Alkaline Phosphatase 78 U/L (38-126); Amylase <30 U/L (30-110); Anion Gap 13 mmol/L; Blood Urea Nitrogen 12 mg/dL (9-20); Calcium 9.6 mg/dL (8.4-10.2); Carbon Dioxide 26 mmol/L (22-30); Chloride 101 mmol/L (98-107); Glucose 82 mg/dL (74-99); Magnesium 1.7 mg/dL (1.6-2.3); Non-African American GFR(MDRD) >60 (>60 ml/min/1.73 sqM); Potassium 3.7 mmol/L (3.5-5.1); Sodium 140 mmol/L (137-145); Total Bilirubin 0.6 mg/dL (0.2-1.3); Total Protein 6.5 g/dL (6.3-8.2)
--- NOTE | 2017-05-09 16:23 | XR ---
EXAMINATION TYPE: XR chest 2V DATE OF EXAM: 05/09/2017 COMPARISON: 02/13/2017 HISTORY: Chest pain TECHNIQUE: Frontal and lateral views of the chest are obtained. FINDINGS: There is mild linear density at the left lung base. There is no heart failure. Heart size is normal. There are chest leads. There is spurring in the thoracic spine. IMPRESSION: Mild atelectasis in the lingula left upper lobe is improved compared to last exam. There is clearing of atelectasis in the right lower lobe compared to old exam. Normal heart.
[2017-05-09 16:26] LABS: INR 1.1 (<1.2); Partial Thromboplastin Time 26.7 sec (22.0-30.0)
[2017-05-09 16:33] LABS: Creatine Kinase 103 U/L (55-170)
[2017-05-09 16:46] LABS: Creatine Kinase MB 1.3 ng/mL (0.0-2.4); Troponin I <0.012 ng/mL (0.000-0.034)
[2017-05-09 17:00] VITALS: RESP 18
[2017-05-09 17:21] VITALS: BP 107/57; PULSE 59; TEMP 98.2
== END 2017-05-09 17:22 | disposition home or self-care (01) ==
LOC: EC 15:47
DX: M94.0 Chondrocostal junction syndrome [Tietze] (principal); R07.1 Chest pain on breathing; I10 Essential (primary) hypertension; M19.90 Unspecified osteoarthritis, unspecified site; E66.9 Obesity, unspecified; I25.10 Atherosclerotic heart disease of native coronary artery without angina pectoris; E78.5 Hyperlipidemia, unspecified; Z95.5 Presence of coronary angioplasty implant and graft; Z87.891 Personal history of nicotine dependence; Z79.82 Long term (current) use of aspirin; Z79.899 Other long term (current) drug therapy; Z88.0 Allergy status to penicillin; Z88.1 Allergy status to other antibiotic agents; Z88.8 Allergy status to other drugs, medicaments and biological substances; Z91.041 Radiographic dye allergy status
CPT/HCPCS: 36415; 93005; 85379; 83880; 80053; 82150; 82550; 82553; 83690; 83735; 84484; 85025; 85610; 85730; 71020; 99285; 96374; J1885

== ENCOUNTER → 2017-09-09 | Outpatient (CLI) | payer MEDICARE ==
--- NOTE | 2017-09-09 11:36 | MR ---
EXAMINATION TYPE: MR cervical spine wo con DATE OF EXAM: 09/09/2017 COMPARISON: 07/01/2014 HISTORY: Cervicalgia, Cervical disc disorder TECHNIQUE: Multiplanar, multisequence images of the cervical spine were acquired. C2-C3: No evidence for degenerative disc disease. No disc bulge/herniation or protrusion. No Canal stenosis. Foramina are patent bilaterally. C3-C4: Broad-based central disc bulging with mild effacement of thecal sac. No Canal stenosis. Bilate ral uncovertebral joint hypertrophy and mild bilateral foraminal encroachment. C4-C5: Postsurgical changes obscures assessment spinal canal. There does appear to be in the axial im ages a left paracentral and lateral small focal herniation encroaches upon and abuts the anterior mar gin the left spinal cord. Hypertrophic uncovertebral joint arthropathy and facet arthropathy result i n moderate bilateral foraminal encroachment. C5-C6: There appears to be posterior central disc spondylosis with spur capping by disc. Results in m oderate anterior effacement of thecal sac. No spinal cord contact. Uncovertebral joint hypertrophy bi laterally with moderate bilateral foraminal encroachment C6-C7: Moderate degenerative disc disease. There is broad-based central disc bulging and posterior sp ondylosis with uncovertebral joint hypertrophy. Bilateral moderate foraminal encroachment. Borderline canal stenosis. C7-T1: No evidence for degenerative disc disease. No disc bulge/herniation or protrusion. No Canal stenosis. Foramina are patent bilaterally. Cervical segments are intact. There is normal alignment. Cervical spinal cord is of normal signal. Craniovertebral junction relationships are within normal limits. IMPRESSION: 1. Postsurgical change with suspected small left paracentral disc herniation C4-C5 abutting the anter ior margin the left spinal cord. 2. Posterior spondylosis and disc capped by spur C5-C6 results in moderate effacement of thecal sac b ut no spinal cord contact. 3. Multilevel degenerative disc disease and hypertrophic change of the facets and uncovertebral joint s result in multilevel foraminal encroachment most marked changes at C4-5, C5-6 and C6-C7.
== END | disposition home or self-care (01) ==
LOC: RADMRIMAIN 10:39
PROVIDERS: ATTEND Orthopaedic Surgery Orthopaedic Surgery of the Spine
DX: M50.321 Other cervical disc degeneration at C4-C5 level (principal); M47.812 Spondylosis without myelopathy or radiculopathy, cervical region; Z98.890 Other specified postprocedural states
CPT/HCPCS: 72141

== ENCOUNTER → 2019-01-20 | Outpatient (CLI) | payer MEDICARE ==
--- NOTE | 2019-01-21 16:20 | MR ---
EXAMINATION TYPE: MR addison/mo wo con DATE OF EXAM: 01/20/2019 COMPARISON: 09/09/2017 HISTORY: Neck/Middle back pain, Headache, Mohsen arm pain and weakness CONTRAST: Performed utilizing 0 mL intravenous Gadavist gadolinium contrast. TECHNIQUE: Multiplanar multiecho imaging on a 3.0 Jessica magnet is performed through the cervical spin e. FINDINGS: The craniovertebral junction is normal. Vertebral body alignment is normal. There is an anterior cervical fusion of C4-C6. This was present previously. C7-T1: No focal disc herniation or significant disc bulge is evident. No spinal canal stenosis or n eural foraminal stenosis is present. C6-7: No focal disc herniation or significant disc bulge is evident. No spinal canal stenosis or galina ral foraminal stenosis is present. C5-6: There is a left paracentral endplate spur and/or residual disc material with moderate anterior thecal sac compression. This comes in contact with the spinal cord. No AP spinal canal stenosis is pr esent. Bilateral severe foraminal stenosis is present.. C4-5: Left paracentral endplate spurring and/or disc material has moderate anterior thecal sac compre ssion. This comes in close approximation with spinal cord. No spinal canal stenosis is present. Neura l foramen have moderate to severe bilateral foraminal stenosis. C3-4: No focal disc herniation or significant disc bulge is evident. No spinal canal stenosis or galina ral foraminal stenosis is present. C2-3: No focal disc herniation or significant disc bulge is evident. No spinal canal stenosis or galina ral foraminal stenosis is present. IMPRESSIONS: 1. Endplate spurring and likely with associated disc material centrally at C5-6 and in the left parac entral region at C4-5. This has cord contact and appears stable from 09/09/2017. 2. Uncovertebral joint hypertrophy with severe foraminal stenosis C5-6 C6-7. EXAMINATION TYPE: MR addison/mo wo con DATE OF EXAM: 01/20/2019 COMPARISON: HISTORY: Neck/Middle back pain, Headache, Mohsen arm pain and weakness CONTRAST: Performed utilizing 0 mL intravenous Gadavist gadolinium contrast. TECHNIQUE: Multiplanar, multiecho imaging on a 3.0 Jessica magnet is performed through the thoracic spi ne. Vertebral body alignment is normal. Vertebral body heights are preserved. There is flattening of the disc height throughout the thoracic spine. Disc desiccation is present. At T5-6 there is a central disc herniation. This has moderate anterior thecal sac compression. Cord f lattening is present. An AP spinal canal stenosis is not present. T6-7: There may be some minimal central syrinx present. No cord expansion is evident. At T8-9 there is a central disc herniation with mild anterior thecal sac compression. There is some c ord deformity although no cord contact is evident during this exam. IMPRESSIONS: 1. Moderate size central disc herniation T5-6 with cord compression and flattening. 2. Small syrinx at the T6-7 level without cord expansion. 3. Central disc herniation with mild anterior thecal sac impression at T8-9. Cord deformity is presen t although no cord contact is evident.
== END ==
LOC: RADMRIMAIN 13:01
PROVIDERS: ATTEND Internal Medicine
DX: M48.02 Spinal stenosis, cervical region (principal); M51.24 Other intervertebral disc displacement, thoracic region
CPT/HCPCS: 72141; 72146

== ENCOUNTER → 2019-06-09 | Outpatient (CLI) | payer MEDICARE ==
--- NOTE | 2019-06-09 09:17 | US ---
EXAMINATION TYPE: US renal artery duplex complet DATE OF EXAM: 06/09/2019 COMPARISON: NONE CLINICAL HISTORY: I16.0 Uncontrolled hypertension. MEASUREMENTS: RENAL SIZE: Rt Kidney: 11.4 x 5.5 x 5.3 cm Lt Kidney: 11.1 x 5.2 x 5.0 cm RESISTANCE INDEX Right: 0.68 Left: 0.66 RA/AO RATIO (< 3.5 ) Right: 2.4 Left: 4.3 RA VELOCITY ( < 180 cm/s) Right: 295 Left: 521 Aorta & renals unremarkable. There is elevated velocities in bilateral renal arteries, greater in the left than the right, causing abnormal ratios. Further workup recommended. IMPRESSION: Renal artery stenosis difficult to exclude. Renal artery MRA or conventional angiography suggested.
== END | disposition home or self-care (01) ==
LOC: RADUSWWP 07:58
PROVIDERS: ATTEND Internal Medicine
DX: I16.0 Hypertensive urgency (principal)
CPT/HCPCS: 93975

== ENCOUNTER 2019-07-18 07:56 | Day surgery (SDC) | payer MEDICARE ==
[~2019-07-18 07:56] MED LIST: ALPRAZolam 0.25 MG TAB PO PRN; ALPRAZolam 0.5 MG TAB PO PRN; ASPIRIN 325 MG TAB PO STA; ATORVASTATIN 80 MG TAB PO STA; NITROGLYCERIN SL TABS 0.4 MG TAB SUBLINGUAL PRN; SODIUM CHLORIDE 0.9% 1,000 ML in EMPTY BAG 1 BAG IV ONE
[2019-07-18] MEDS ORDERED: SODIUM CHLORIDE 0.9% 1,000 ML IV ONE (08:28)
[2019-07-18] MEDS ORDERED: MIDAZOLAM 2 MG/2 ML VIAL IVP ONE ×2 (08:50→09:38)
[2019-07-18] MEDS ORDERED: LIDOCAINE 1% INJ 10MG/ML (20 ML MDV) SQ ONE (08:51)
[2019-07-18] MEDS ORDERED: HYDROmorphone 1 MG/ML 1 ML SYRINGE IVP ONE (08:57)
[2019-07-18] MEDS ORDERED: BIVALIRUDIN 250 MG in SODIUM CHLORIDE 0.9% 50 ML IV ONE (09:20)
[2019-07-18] MEDS ORDERED: BIVALIRUDIN BOLUS 250 MG/50 ML IV ONE (09:20)
[2019-07-18] MEDS ORDERED: IOPAMIDOL-250 100ML BTL INTRAARTER ONE (09:36)
[2019-07-18] MEDS ORDERED: NITROGLYCERIN 1000MCG/10ML SYRINGE INTRACORON ONE (09:46)
[2019-07-18] MEDS ORDERED: CLOPIDOGREL 75 MG TAB PO ONE (09:46)
[2019-07-18] MEDS ORDERED: IOPAMIDOL-370 125ML BTL INJ ONE (10:02)
[2019-07-18] MEDS ORDERED: LEVALBUTEROL HCL 1.25 MG INHALATION PRN (10:06)
[2019-07-18] MEDS ORDERED: hydrALAZINE HCL 25 MG TAB PO PRN (10:06)
[2019-07-18] MEDS ORDERED: ATROPINE SULFATE 0.1 MG/ML 10ML SYRINGE IV PRN (10:08)
[2019-07-18] MEDS ORDERED: RX INFO: IV CONTRAST WAS GIVEN 1 EACH MISC MISCELLANE PRN (10:08)
[2019-07-18] MEDS ORDERED: ZOLPIDEM 5 MG TAB PO PRN (10:08)
[2019-07-18] MEDS ORDERED: MAG HYDROX/AL HYDROX/SIMETH 30 ML CUP PO PRN (10:08)
[2019-07-18] MEDS ORDERED: NITROGLYCERIN SL TABS 0.4 MG TAB SUBLINGUAL PRN (10:08)
[2019-07-18] MEDS ORDERED: SODIUM CHLORIDE 0.9% 1,000 ML IV SCH (10:15)
--- NOTE | 2019-07-18 10:16 | P.PCN ---
Date of Procedure: 07/18/19 Operative Findings: AN ABDOMINAL AORTOGRAM AND BILATERAL LOWER EXTREMITIES RUNOFF PERFORMING PHYSICIAN: Federico Diaz MD PROCEDURE PERFORMED: 1. An abdominal aortogram 2. Bilateral lower extremities runoff 3. Nonselective bilateral renal arteries angiogram INDICATION: This is a pleasant 60-year-old gentleman with history of coronary artery disease and prior coronary stenting as well as hypertension and dyslipidemia was experiencing bilateral lower extremities intermittent claudication. Also he is known to have hypertension but lately the blood pressure was uncontrolled. He underwent renal duplex study and that revealed severe stenosis. Because of that he was brought today to undergo an aortogram with runoff as well as nonselective renal arteries angiogram COMPLICATION: None LEVEL OF SEDATION: Moderate was sedation length of 15 minutes APPROACH: Right common femoral artery PROCEDURE DESCRIPTION: After obtaining informed consent and explaining the procedure benefits, risks, and complications, the patient was brought to the cardiac laboratory clerk. The right groin was prepped and draped in sterile fashion. The right common femoral artery was cannulated using micropuncture technique, under ultrasound guidance. A micropuncture wire was advanced, and the micropuncture sheath was advanced over the wire, then the micropuncture sheath was exchanged over an 0.35 wire into a 5-[place] sheath dilator assembly then the wire and dilator were removed and sheath was flushed. We did an abdominal aortogram and bilateral lower extremities runoff using 5- [place]i pigtail catheter using a power injection. The catheter was initially placed at the level of the renal arteries, and it was pulled into above the bifurcation of the aorta into right and left common iliac arteries. The procedure was completed and there was no complications. SELECTIVE PERIPHERAL ANGIOGRAM: The abdominal aorta: Has mild disease only. The renal arteries: Are angiographically normal The common iliac arteries: Both are patent The external iliac arteries: Angiographically normal The internal iliac arteries: Are patent The common femoral arteries: Are angiographically normal Superficial femoral arteries: Have mild disease only. There are calcified as well Popliteal arteries: Are patent Below the knees: The arteries below the knee were not well visualized but probably there are 3 vessels run off. CONCLUSION: 1. Mild peripheral arterial disease 2. Normal bilateral renal arteries POSTPROCEDURE MANAGEMENT: 1. Medical treatment 2. Follow-up with the patient
--- NOTE | 2019-07-18 10:26 | P.PCN ---
Date of Procedure: 07/18/19 Operative Findings: CARDIAC CATHETERIZATION AND PERCUTANEOUS CORONARY INTERVENTION PERFORMING PHYSICIAN: Federico Diaz MD, [facility] PROCEDURE PERFORMED: 1. Selective right and left coronary angiogram 2. Left heart catheterization 3. Fractional flow reserve (FFR) of the RCA 4. Successful stenting of the mid RCA using 3.25 x 12 and 3.25 x 8 mm Xience MAIKEL with an excellent angiographic results (80% to 0%) INDICATION: This is a pleasant 63-year-old gentleman with history of coronary artery disease and prior stenting of the RCA in 2016 as well as hypertension and dyslipidemia was experiencing symptoms of chest discomfort with exertion concerning for severe coronary artery disease. Because of that heart catheterization was advised COMPLICATION: None APPROACH: Right common femoral artery LEVEL OF SEDATION: Moderate with a sedation length of 50 minutes PROCEDURE DESCRIPTION: After obtaining an informed consent, the patient was brought to cardiac parking lot laborer. Local anesthesia was performed using lidocaine subcutaneously. The right common femoral artery was cannulated using Seldinger technique, the guidewire passed easily, following that we advanced a 6 Hebrew sheath dilator assembly, the wire and dilator were removed and sheath was flushed. Selective right and left coronary angiogram using a 6-Hebrew JR4 and JL catheters. Following that we did left heart catheterization using 6-Hebrew pigtail catheter. After that I did intervene on the RCA. The procedure was completed there was no complication. SELECTIVE CORONARY ANGIOGRAM: The right coronary artery: Is a large caliber vessel and a dominant vessel. The proximal RCA is tortuous was mild disease only. The mid RCA is a stented and the stent is patent but proximal to the stent there is tubular lesion appeared to be in the range of 60- 70%. I did perform an FFR on it and that came in to be ischemic. The distal RCA is angiographically normal and bifurcates into PDA and PLV branches both appeared to be angiographically normal. Left main: It is angiographically normal. Bifurcates into LCx and LAD. The left circumflex: Is a moderate to large caliber vessel and nondominant vessel. It does have mild disease only. In the midportion gives rises into a large OM branch which appeared to be angiographically normal. The left anterior descending artery: It is a large caliber vessel. The proximal LAD appeared to have mild disease only and gives rises into a large diagonal branch which seems to be angiographically normal. The mid LAD appears to be normal and gives rises into a second diagonal branch which seems to be angiographically normal. The LAD distally appears to be angiographically normal. HEMODYNAMICS: The LVEDP was 8-12 mmHg without significant gradient across aortic valve. FFR OF THE RCA AND PCI OF THE RCA: Anticoagulation was initiated using Angiomax was bolused and drip. After zeroing the Doppler wire and equalizing between the Doppler wire and the guiding catheter which was JR 3.5 guiding catheter with did an FFR. As a matter of fact we did an IV started and that came in to be ischemic at 0.81. We did not have to pursue with an FFR and gives the patient adenosine. At that point I decided to pursue with a stenting of the RCA. I did balloon angioplasty on the lesion in the mid RCA using 3.5 x 12 mm balloon which was inflated under 10 james for 20 seconds. After that I attempted advancing 3.25 x 12 mm stents but the stent won't cross the lesion and because of that I did wire the RCA using a cadence wire with a whisper wire. On the whisper wire and I was able to advance a 3.25 x 12 mm Xience MAIKEL where the stent was positioned under fluoroscopy guidance and deployed under 12 james for 20 seconds after the cadence wire was pulled out. The following angiogram showed an area between the old and new stent appeared to be hazy and because of that I decided to cover that with another stent. I deployed 3.25 x 8 mm another Xience MAIKEL where the second stent was positioned under fluoroscopy guidance and deployed under 14 james for 20 seconds with the following angiogram showing excellent angiographic results was SIDNEY-3 flow and without any dissection or dye staining. At that point the procedure was completed. CONCLUSION: 1. Severe disease involving the mid RCA. The stent distal to the lesion appears to be patent. 2. Mild disease involving the left coronary system 3. Successful stenting of the mid RCA using 3.25 x 12 and 3.25 x 8 mm Xience MAIKEL with an excellent angiographic results. POSTPROCEDURE MANAGEMENT: Dual antiplatelet therapy Risk factors modifications Follow-up with the patient
[2019-07-18 10:34] VITALS: BMI 30.8
[2019-07-18] MEDS ORDERED: ERGOCALCIFEROL 50,000 UNIT CAP PO SCH (11:00)
[2019-07-18] MEDS: IPRATROPIUM-ALBUTEROL 3 ML NEB INHALATION PRN ×3 (11:57→19:40)
[2019-07-18] MEDS: HYDROcodone/APAP 10-325MG 1 EACH TAB PO PRN ×3 (12:47→23:44)
--- NOTE | 2019-07-18 12:47 | IR ---
Fluoroscopy HISTORY: Pain in leg 15 minutes fluoroscopy time supplied to the referring clinician. 921 intraopera tive C-arm images document the procedure. See dictated report from cardiology.
[2019-07-18 14:11] VITALS: RESP 18
[2019-07-18] MEDS: SYMBICORT 160-4.5 MCG INHALER INHALATION SCH (19:40)
[2019-07-18] MEDS: MORPHINE SULFATE IR 15 MG TABLET PO SCH (20:10)
[2019-07-18] MEDS: cloNIDine HCL 0.2 MG TAB PO SCH (20:10)
[2019-07-18] MEDS: DILTIAZEM CD 120 MG CAP.ER.24H PO SCH (20:11)
[2019-07-18] MEDS: METOPROLOL TARTRATE 25 MG TAB PO SCH (20:11)
[2019-07-18] MEDS ORDERED: ATORVASTATIN 80 MG TAB PO SCH (21:00)
[2019-07-18] MEDS ORDERED: MINOXIDIL 10 MG TAB PO SCH (21:00)
[2019-07-18] MEDS: THEOPHYLLINE 24 HOUR 200 MG CAP.ER.24H PO SCH (21:12)
[2019-07-19] MEDS: HYDROcodone/APAP 10-325MG 1 EACH TAB PO PRN (05:13)
[2019-07-19] MEDS: IPRATROPIUM-ALBUTEROL 3 ML NEB INHALATION PRN ×2 (06:10→08:50)
[2019-07-19 06:21] LABS: Basophils % (A) 0 %; Eosinophils # (A) 0.1 k/uL (0-0.7); Eosinophils % (A) 1 %; HCT 40.3 % (39.0-53.0); HGB 13.7 gm/dL (13.0-17.5); Lymphocytes # (A) 2.6 k/uL (1.0-4.8); Lymphocytes % (A) 25 %; MCH 35.4 pg (25.0-35.0); MCV 104.2 fL (80.0-100.0); Macrocytosis Slight; Monocytes # (A) 0.8 k/uL (0-1.0); Monocytes % (A) 8 %; Neutrophils # (A) 6.7 k/uL (1.3-7.7); Neutrophils % (A) 64 %; Platelet Count 210 k/uL (150-450); RBC 3.87 m/uL (4.30-5.90); RDW 12.4 % (11.5-15.5); WBC 10.5 k/uL (3.8-10.6)
[2019-07-19] MEDS ORDERED: LEVOTHYROXINE 50 MCG TAB PO SCH (06:30)
[2019-07-19 06:36] LABS: African American GFR (CKD) >90 (>60 ml/min/1.73 sqM); Anion Gap 6 mmol/L; Blood Urea Nitrogen 17 mg/dL (9-20); Calcium 8.6 mg/dL (8.4-10.2); Carbon Dioxide 32 mmol/L (22-30); Chloride 102 mmol/L (98-107); Glucose 101 mg/dL (74-99); Non-African American GFR(CKD) >90 (>60 ml/min/1.73 sqM); Potassium 3.7 mmol/L (3.5-5.1); Sodium 140 mmol/L (137-145)
[2019-07-19] MEDS: SYMBICORT 160-4.5 MCG INHALER INHALATION SCH (08:50)
[2019-07-19 09:00] VITALS: PULSE 64
[2019-07-19] MEDS ORDERED: FUROSEMIDE 40 MG TAB PO SCH (09:00)
[2019-07-19] MEDS ORDERED: MINOXIDIL 2.5 MG TAB PO SCH (09:00)
[2019-07-19] MEDS ORDERED: LOSARTAN-HCTZ 50-12.5 MG 1 EACH TAB PO SCH (09:00)
[2019-07-19] MEDS ORDERED: amLODIPine 10 MG TAB PO SCH (09:00)
[2019-07-19] MEDS ORDERED: MONTELUKAST 10 MG TAB PO SCH (09:00)
[2019-07-19] MEDS ORDERED: predniSONE 10 MG TAB PO SCH (09:00)
[2019-07-19] MEDS ORDERED: CLOPIDOGREL 75 MG TAB PO SCH (09:00)
[2019-07-19] MEDS ORDERED: ASPIRIN 81 MG PO SCH (09:00)
[2019-07-19] MEDS ORDERED: POTASSIUM CHLORIDE ER 10 MEQ TAB.ER.PRT PO SCH (09:00)
[2019-07-19] MEDS: DILTIAZEM CD 120 MG CAP.ER.24H PO SCH (09:15)
[2019-07-19] MEDS: MORPHINE SULFATE IR 15 MG TABLET PO SCH (09:16)
[2019-07-19] MEDS: THEOPHYLLINE 24 HOUR 200 MG CAP.ER.24H PO SCH (09:16)
[2019-07-19] MEDS: cloNIDine HCL 0.2 MG TAB PO SCH (09:16)
[2019-07-19] MEDS: METOPROLOL TARTRATE 25 MG TAB PO SCH (09:16)
[2019-07-19 09:54] VITALS: BP 140/64; TEMP 97.8
--- NOTE | 2019-07-19 13:15 | P.DS ---
Providers Date of admission: 07/18/2019 Attending physician: Federico Diaz Consults: 07/18/19 10:08 Consult Physician Routine Consulting Provider: [facility] Consult Reason/Comments: Post Interventional patient Do you want consulting provider notified?: Already Contacted Primary care physician: [facility] Course: This is a pleasant 63-year-old gentleman who underwent yesterday successful stenting of the RCA. On follow-up with him today, he is asymptomatic. He denies any chest pain or chest discomfort or shortness of breath. The right groin is mildly bruised without any discrete hematoma. The patient can be discharged home. Patient Condition at Discharge: Stable Plan - Discharge Summary Discharge Rx Participant: Yes New Discharge Prescriptions: New Atorvastatin Calcium [Lipitor] 80 mg PO DAILY #90 tablet Clopidogrel Bisulfate [Plavix] 75 mg PO DAILY #90 tab Continue Levalbuterol HCl [Xopenex Nebulized] 1.25 mg INHALATION RT-QID PRN PRN Reason: Shortness Of Breath Losartan/Hydrochlorothiazide [Hyzaar 100-25 Tablet] 1 tab PO DAILY Potassium Chloride [Klor-Con 10] 10 meq PO DAILY Furosemide [Lasix] 40 mg PO DAILY Minoxidil 10 mg PO HS hydrALAZINE HCL [Apresoline] 25 mg PO DAILY PRN PRN Reason: Blood Pressure Hydrocodone/Acetaminophen [Hydrocodone-Acetamin 10-325 mg] 1 tab PO QID Theophylline Anhydrous [Uniphyl] 200 mg PO BID Metoprolol Tartrate [Lopressor] 25 mg PO BID Aspirin EC [Ecotrin Low Dose] 81 mg PO DAILY Ergocalciferol [Vitamin D2 (DRISDOL)] 50,000 unit PO MO Montelukast [Singulair] 10 mg PO DAILY predniSONE 10 mg PO DAILY Ipratropium Nebulized [Atrovent Nebulized 0.2 MG/ML] 0.5 mg INHALATION RT-QID PRN PRN Reason: Shortness Of Breath Levothyroxine Sodium [Synthroid] 50 mcg PO DAILY Minoxidil 5 mg PO QAM amLODIPine BESYLATE 10 mg PO DAILY Diltiazem HCl [Diltiazem 12Hr ER] 120 mg PO BID Morphine Sulfate 15 mg PO BID cloNIDine HCL [Catapres] 0.2 mg PO BID Budesonide-Formot 160-4.5 Mcg [Symbicort 160-4.5 Mcg Inhaler] 2 puff INHALATION BID Discharge Medication List Furosemide [Lasix] 40 mg PO DAILY 03/24/14 [History] Levalbuterol HCl [Xopenex Nebulized] 1.25 mg INHALATION RT-QID PRN 03/24/14 [History] Losartan/Hydrochlorothiazide [Hyzaar 100-25 Tablet] 1 tab PO DAILY 03/24/14 [History] Potassium Chloride [Klor-Con 10] 10 meq PO DAILY 03/24/14 [History] Minoxidil 10 mg PO HS 08/28/14 [History] hydrALAZINE HCL [Apresoline] 25 mg PO DAILY PRN 02/08/16 [History] Hydrocodone/Acetaminophen [Hydrocodone-Acetamin 10-325 mg] 1 tab PO QID 02/12/16 [History] Theophylline Anhydrous [Uniphyl] 200 mg PO BID 02/12/16 [History] Aspirin EC [Ecotrin Low Dose] 81 mg PO DAILY 02/05/17 [History] Ergocalciferol [Vitamin D2 (DRISDOL)] 50,000 unit PO MO 02/05/17 [History] Ipratropium Nebulized [Atrovent Nebulized 0.2 MG/ML] 0.5 mg INHALATION RT-QID PRN 02/05/17 [History] Metoprolol Tartrate [Lopressor] 25 mg PO BID 02/05/17 [History] Montelukast [Singulair] 10 mg PO DAILY 02/05/17 [History] predniSONE 10 mg PO DAILY 02/05/17 [History] Budesonide-Formot 160-4.5 Mcg [Symbicort 160-4.5 Mcg Inhaler] 2 puff INHALATION BID 07/13/19 [History] Diltiazem HCl [Diltiazem 12Hr ER] 120 mg PO BID 07/13/19 [History] Levothyroxine Sodium [Synthroid] 50 mcg PO DAILY 07/13/19 [History] Minoxidil 5 mg PO QAM 07/13/19 [History] Morphine Sulfate 15 mg PO BID 07/13/19 [History] amLODIPine BESYLATE 10 mg PO DAILY 07/13/19 [History] cloNIDine HCL [Catapres] 0.2 mg PO BID 07/13/19 [History] Atorvastatin Calcium [Lipitor] 80 mg PO DAILY #90 tablet 07/18/19 [Rx] Clopidogrel Bisulfate [Plavix] 75 mg PO DAILY #90 tab 07/18/19 [Rx] Follow up Appointment(s)/Referral(s): Federico Diaz MD [STAFF PHYSICIAN] - 07/25/19 4:45 pm (Thursday) Patient Instructions/Handouts: Heart Healthy Diet (DC), Coronary Intravascular Stent Placement (DC) Activity/Diet/Wound Care/Special Instructions: Medications faxed to pharmacy, copy in chart next to stent card. Discharge Disposition: HOME SELF-CARE Care Plan Goals (MU): 1. Support your puncture site by applying firm, steady pressure whenever you cough, laugh, sneeze or bear down to have a bowel movement (2-day restriction). 2. Watch for any excessive bruising, active bleeding, a firm knot forming under your skin, extreme tenderness and signs of infection (redness, swelling, fever). 3. Shower daily, do not soak puncture in a tub bath, jacuzzi, pool, lopez etc. for 1 week. This is to prevent risk of infection. 4. Drink plenty of fluids the day of and day after your procedure to flush contrast dye out of your kidneys. 5. Take all medications as directed. Never stop any new medication without your physicians OK. 6. No driving for 2 days after procedure. 7. 10- pound weight lifting restriction for 1 week. 8. Low sodium/low fat diet. 9. Activity limited until follow up appointment with your commodities requirements analyst. In case of any problems, please call [facility] [place] @ [phone].
--- NOTE | 2019-08-01 09:55 | CDI ---
Outpatient Documentation Clarification Form Date: 08/01/19 CDS/Horizontal Boring Mill Operator Name: Shira Mchugh Phone: If any questions, call Jasmin Warner Technology Applications Teacher at [phone] Patient Name: Ryne Mondragon Admit Date: 07/18/19 Discharge Date: 07/19/19 ATTENTION: The [facility] Coding Staff appreciate your assistance in clarifying documentation. Please respond to the clarification below the line at the bottom and electronically sign. The [facility] Coding Staff will review the response and follow-up if needed. Please Note: Queries are made part of the Legal Health Record. If you have any questions, please contact the Technology Applications Teacher. Dear Dr. Diaz, Please provide clarification regarding if the FFR was performed on this patient or if another type of test was performed. There is conflicting documentation about in in the Operative Note as noted below: The Operative note in the sixth paragraph under Procedure Description it is documented that an FFR was performed. Then under FFR of THE RCA and PCI of the RCA, the second paragraph it states the FFR was done in one sentence Then a few sentences down it states: "We did not have to pursue with an FFR." Please clarify was it done or not? Thank you for your kind consideration. IFR was performed that came to be ischemic. MTDD
== END 2019-07-19 13:12 | disposition home or self-care (01) ==
LOC: CATHCVL 07:56 → 3SCARD 10:14 → CATHCVL 07-19 13:12
PROVIDERS: ATTEND Internal Medicine Interventional Cardiology
DX: I25.110 Atherosclerotic heart disease of native coronary artery with unstable angina pectoris (principal); I70.213 Atherosclerosis of native arteries of extremities with intermittent claudication, bilateral legs; I70.1 Atherosclerosis of renal artery; I10 Essential (primary) hypertension; I77.1 Stricture of artery; E78.5 Hyperlipidemia, unspecified; E78.00 Pure hypercholesterolemia, unspecified; Z87.891 Personal history of nicotine dependence; Z95.5 Presence of coronary angioplasty implant and graft; Z79.82 Long term (current) use of aspirin; Z79.890 Hormone replacement therapy; Z79.52 Long term (current) use of systemic steroids; Z79.899 Other long term (current) drug therapy; Z88.1 Allergy status to other antibiotic agents; Z88.0 Allergy status to penicillin; Z91.048 Other nonmedicinal substance allergy status
CPT/HCPCS: 93458; 94640 ×4; 75625; 75716; 94760; 93571; 76937; 80048; 85025; C9600; C1760; C1769 ×3; C1725; C1887; C1894; C1874; S0139 ×2; J2250; J2001; J1170; J0583; J7512; Q9966; Q9967; 36200; 92978

== ENCOUNTER 2019-09-27 21:13 | Emergency (ER) | payer MEDICARE ==
[2019-09-27 21:54] VITALS: RESP 18
[2019-09-27] MEDS ORDERED: ONDANSETRON 4 MG/2 ML VIAL IVP STA (21:59)
[2019-09-27] MEDS ORDERED: MORPHINE SULFATE 4 MG/ML SYRINGE IV STA (21:59)
[2019-09-27 22:15] LABS: Basophils # (A) 0.1 k/uL (0-0.2); Basophils % (A) 1 %; Eosinophils # (A) 0.3 k/uL (0-0.7); Eosinophils % (A) 3 %; HCT 41.3 % (39.0-53.0); Lymphocytes # (A) 2.2 k/uL (1.0-4.8); Lymphocytes % (A) 24 %; MCH 34.5 pg (25.0-35.0); MCHC 33.9 g/dL (31.0-37.0); MCV 101.8 fL (80.0-100.0); Macrocytosis Slight; Mean Platelet Volume 7.8; Monocytes % (A) 11 %; Neutrophils # (A) 5.6 k/uL (1.3-7.7); Neutrophils % (A) 59 %; Platelet Count 225 k/uL (150-450); RBC 4.05 m/uL (4.30-5.90); RDW 12.9 % (11.5-15.5); WBC 9.3 k/uL (3.8-10.6)
[2019-09-27 22:30] LABS: ALT 31 U/L (4-49); AST 35 U/L (17-59); African American GFR (CKD) >90 (>60 ml/min/1.73 sqM); Albumin 4.1 g/dL (3.5-5.0); Alkaline Phosphatase 62 U/L (38-126); Anion Gap 5 mmol/L; Blood Urea Nitrogen 15 mg/dL (9-20); Calcium 9.4 mg/dL (8.4-10.2); Carbon Dioxide 34 mmol/L (22-30); Chloride 99 mmol/L (98-107); Glucose 107 mg/dL (74-99); Non-African American GFR(CKD) 78 (>60 ml/min/1.73 sqM); Potassium 3.9 mmol/L (3.5-5.1); Sodium 138 mmol/L (137-145); Total Bilirubin 0.6 mg/dL (0.2-1.3); Total Protein 6.4 g/dL (6.3-8.2)
[2019-09-27 22:33] LABS: Partial Thromboplastin Time 27.1 sec (22.0-30.0); Prothrombin Time 10.5 sec (9.0-12.0)
--- NOTE | 2019-09-27 23:01 | XR ---
EXAMINATION TYPE: XR chest 2V DATE OF EXAM: 09/27/2019 COMPARISON: 02/22/2019 HISTORY: Chest pain TECHNIQUE: FINDINGS: There is some patchy linear density at the lung bases. Heart size is fairly normal. There i s no heart failure. There is mild flattening of the diaphragm. There is spurring in the thoracic spin e. IMPRESSION: There is some fibrotic changes and subsegmental atelectasis at the lung bases stable comp ared to old exam. No heart failure. There is probably COPD.
[2019-09-27 23:13] VITALS: BP 112/68; PULSE 60; TEMP 98
--- NOTE | 2019-09-28 01:42 | ED ---
General Adult HPI - General Chief complaint: Shortness of Breath Stated complaint: Chest pain, SOB Time Seen by Provider: 09/27/19 21:42 Source: patient Mode of arrival: ambulatory Limitations: no limitations - History of Present Illness Initial comments: 63-year-old male patient with past medical history significant for coronary artery disease with stents placed 6 weeks ago presents to the emergency department today for evaluation of chest pain or shortness of breath. Patient reports pain started approximately 3 hours ago. He describes this has a substernal pressure type pain. Denies any nausea or vomiting. Denies sweats. States that he does have asthma and he has been having a lot of wheezing. He does have a chronic cough. States he did a breathing treatment just prior to arrival. Patient states he does take his medications as directed. Takes aspirin as well as Plavix. Patient denies any recent rash, fever, chills, abdominal pain, diarrhea, constipation, back pain, numbness, tingling, dizziness, weakness, hematuria, dysuria, urinary urgency, urinary frequency, headache, visual changes, or any other complaints. - Related Data Home Medications Medication Instructions Recorded Confirmed Furosemide [Lasix] 40 mg PO DAILY 03/24/14 07/18/19 Levalbuterol HCl [Xopenex 1.25 mg INHALATION RT-QID PRN 03/24/14 07/18/19 Nebulized] Losartan/Hydrochlorothiazide 1 tab PO DAILY 03/24/14 07/18/19 [Hyzaar 100-25 Tablet] Potassium Chloride [Klor-Con 10] 10 meq PO DAILY 03/24/14 07/18/19 Minoxidil 10 mg PO HS 08/28/14 07/18/19 hydrALAZINE HCL [Apresoline] 25 mg PO DAILY PRN 02/08/16 07/18/19 Hydrocodone/Acetaminophen 1 tab PO QID 02/12/16 07/18/19 [Hydrocodone-Acetamin 10-325 mg] Theophylline Anhydrous [Uniphyl] 200 mg PO BID 02/12/16 07/18/19 Aspirin EC [Ecotrin Low Dose] 81 mg PO DAILY 02/05/17 07/18/19 Ergocalciferol [Vitamin D2 50,000 unit PO MO 02/05/17 07/13/19 (DRISDOL)] Ipratropium Nebulized [Atrovent 0.5 mg INHALATION RT-QID PRN 02/05/17 07/18/19 Nebulized 0.2 MG/ML] Metoprolol Tartrate [Lopressor] 25 mg PO BID 02/05/17 07/18/19 Montelukast [Singulair] 10 mg PO DAILY 02/05/17 07/18/19 predniSONE 10 mg PO DAILY 02/05/17 07/18/19 Budesonide-Formot 160-4.5 Mcg 2 puff INHALATION BID 07/13/19 07/18/19 [Symbicort 160-4.5 Mcg Inhaler] Diltiazem HCl [Diltiazem 12Hr ER] 120 mg PO BID 07/13/19 07/18/19 Levothyroxine Sodium [Synthroid] 50 mcg PO DAILY 07/13/19 07/18/19 Minoxidil 5 mg PO QAM 07/13/19 07/18/19 Morphine Sulfate 15 mg PO BID 07/13/19 07/18/19 amLODIPine BESYLATE 10 mg PO DAILY 07/13/19 07/18/19 cloNIDine HCL [Catapres] 0.2 mg PO BID 07/13/19 07/18/19 Previous Rx's Medication Instructions Recorded Atorvastatin Calcium [Lipitor] 80 mg PO DAILY #90 tablet 07/18/19 Clopidogrel Bisulfate [Plavix] 75 mg PO DAILY #90 tab 07/18/19 Allergies Allergy/AdvReac Type Severity Reaction Status Date / Time arformoterol tartrate Allergy Dyspnea Verified 09/27/19 21:23 [From Brovana] Iodinated Contrast Media Allergy Anaphylaxis Verified 09/27/19 21:23 [Iodinated Contrast Media - IV Dye] moxifloxacin [From Avelox] Allergy Dyspnea Verified 09/27/19 21:23 Penicillins Allergy Dyspnea Verified 09/27/19 21:23 Quinolones Allergy Dyspnea Verified 09/27/19 21:23 vancomycin Allergy Dyspnea Verified 09/27/19 21:23 Review of Systems ROS Statement: Those systems with pertinent positive or pertinent negative responses have been documented in the HPI. ROS Other: All systems not noted in ROS Statement are negative. Past Medical History Past Medical History: Asthma, COPD, GERD/Reflux, Hyperlipidemia, Hypertension, Osteoarthritis (OA), Respiratory Disorder Additional Past Medical History / Comment(s): Severe persistent bronchial asthma, coronary artery disease, hyperlipidemia-resolved, hypertension, obesity, obstructive sleep apnea-resolved, osteoarthritis, very closely in the lower extremities, chronic constipation History of Any Multi-Drug Resistant Organisms: None Reported Past Surgical History: Appendectomy, Heart Catheterization With Stent, Hernia Repair, Orthopedic Surgery, Tonsillectomy Additional Past Surgical History / Comment(s): Hernia repair 4, tonsillectomy, appendectomy, bronchoscopy, total left knee replacement 2012, anterior and cervical spinal decompression and fusion at the level of C4-C5, C5-C6 and cardiac catheterization with stent placement Past Anesthesia/Blood Transfusion Reactions: No Reported Reaction Date of Last Stent Placement:: 07/18/2019 Past Psychological History: No Psychological Hx Reported Smoking Status: Former smoker Past Alcohol Use History: None Reported Past Drug Use History: None Reported - Past Family History Brother(s) Family Medical History: Cancer Additional Family Medical History / Comment(s): Brain cancer. Son(s) Family Medical History: Myocardial Infarction ([place]) Father Family Medical History: Cancer Additional Family Medical History / Comment(s): Father of Lung cancer at age 78yrs. Mother Family Medical History: Coronary Artery Disease (CAD), Myocardial Infarction ([place]) Additional Family Medical History / Comment(s): Mother at age 48yrs while having open heart surgery. General Exam Limitations: no limitations General appearance: alert, in no apparent distress, other (This is a well-d eveloped, well-nourished adult male patient in no acute distress. Vital signs upon presentation are temperature 97.9F, pulse 66, respirations 28, blood pressure 173/54, pulse ox 94% on room air.) ENT exam: Present: normal exam, normal oropharynx, mucous membranes moist Respiratory exam: Present: wheezes (Coarse expiratory wheezing noted in the po sterior lung dickinson). Absent: normal lung sounds bilaterally, respiratory distress, rales, rhonchi, stridor Cardiovascular Exam: Present: regular rate, normal rhythm, normal heart sounds. Absent: systolic murmur, diastolic murmur, rubs, gallop, clicks GI/Abdominal exam: Present: soft, normal bowel sounds. Absent: distended, tenderness, guarding, rebound, rigid Neurological exam: Present: alert, oriented X3, CN II-XII intact Psychiatric exam: Present: normal affect, normal mood Skin exam: Present: warm, dry, intact, normal color. Absent: rash Course Vital Signs 09/27/19 09/27/19 09/27/19 21:21 21:51 22:05 Temperature 97.9 F 97.6 F Pulse Rate 66 65 Respiratory 28 H 18 18 Rate Blood Pressure 173/54 122/63 O2 Sat by Pulse 94 L 96 Oximetry 09/27/19 23:12 Temperature 98 F Pulse Rate 60 Respiratory 18 Rate Blood Pressure 112/68 O2 Sat by Pulse 98 Oximetry EKG Findings - EKG Comments: EKG Findings:: EKG was obtained at 134 shows sinus rhythm with premature atrial complexes. Ventricular rate is 67, VA interval is 142, QR adventism is 98, QT 388, QTC 409. No evidence of ST elevation or depression. Medical Decision Making - Medical Decision Making 63-year-old male patient presents to the emergency department today for evaluation of chest pain or shortness of breath. Physical examination did reveal coarse expiratory wheezing in the posterior lung dickinson. Chest x-ray shows probable COPD of no acute cardiopulmonary process. EKG shows normal sinus rhythm with no ST elevation or depression. Labs reviewed and did reveal normal troponin. Upon reevaluation patient reports resolution of symptoms. I did recommend admission for further evaluation by cardiology. Patient preferred to be discharged home. We did agree to repeat the troponin 3 hours after the initial draw. Second troponin was negative. He'll be discharged home to follow -up with his primary care physician for recheck in the morning. He is instructed to follow-up with his crew scheduler. Return parameters were discussed in detail. He verbalizes understanding and agrees with this plan. - Lab Data Result diagrams: 09/27/19 21:48 09/27/19 21:48 Lab Results 09/27/19 09/27/19 09/27/19 Range/Units 21:48 21:48 21:48 WBC 9.3 (3.8-10.6) k/uL RBC 4.05 L (4.30-5.90) m/uL Hgb 14.0 (13.0-17.5) gm/dL Hct 41.3 (39.0-53.0) % MCV 101.8 H (80.0-100.0) fL MCH 34.5 (25.0-35.0) pg MCHC 33.9 (31.0-37.0) g/dL RDW 12.9 (11.5-15.5) % Plt Count 225 (150-450) k/uL Neutrophils % 59 % Lymphocytes % 24 % Monocytes % 11 % Eosinophils % 3 % Basophils % 1 % Neutrophils # 5.6 (1.3-7.7) k/uL Lymphocytes # 2.2 (1.0-4.8) k/uL Monocytes # 1.0 (0-1.0) k/uL Eosinophils # 0.3 (0-0.7) k/uL Basophils # 0.1 (0-0.2) k/uL Macrocytosis Slight PT (9.0-12.0) sec INR (<1.2) APTT (22.0-30.0) sec Sodium 138 (137-145) mmol/L Potassium 3.9 (3.5-5.1) mmol/L Chloride 99 (98-107) mmol/L Carbon Dioxide 34 H (22-30) mmol/L Anion Gap 5 mmol/L BUN 15 (9-20) mg/dL Creatinine 1.02 (0.66-1.25) mg/dL Est GFR (CKD-EPI)AfAm >90 (>60 ml/min/1.73 sqM) Est GFR (CKD-EPI)NonAf 78 (>60 ml/min/1.73 sqM) Glucose 107 H (74-99) mg/dL Calcium 9.4 (8.4-10.2) mg/dL Magnesium 2.0 (1.6-2.3) mg/dL Total Bilirubin 0.6 (0.2-1.3) mg/dL AST 35 (17-59) U/L ALT 31 (4-49) U/L Alkaline Phosphatase 62 (38-126) U/L Troponin I (0.000-0.034) ng/mL NT-Pro-B Natriuret Pep 39 pg/mL Total Protein 6.4 (6.3-8.2) g/dL Albumin 4.1 (3.5-5.0) g/dL 09/27/19 09/27/19 09/28/19 Range/Units 21:48 21:48 00:50 WBC (3.8-10.6) k/uL RBC (4.30-5.90) m/uL Hgb (13.0-17.5) gm/dL Hct (39.0-53.0) % MCV (80.0-100.0) fL MCH (25.0-35.0) pg MCHC (31.0-37.0) g/dL RDW (11.5-15.5) % Plt Count (150-450) k/uL Neutrophils % % Lymphocytes % % Monocytes % % Eosinophils % % Basophils % % Neutrophils # (1.3-7.7) k/uL Lymphocytes # (1.0-4.8) k/uL Monocytes # (0-1.0) k/uL Eosinophils # (0-0.7) k/uL Basophils # (0-0.2) k/uL Macrocytosis PT 10.5 (9.0-12.0) sec INR 1.0 (<1.2) APTT 27.1 (22.0-30.0) sec Sodium (137-145) mmol/L Potassium (3.5-5.1) mmol/L Chloride (98-107) mmol/L Carbon Dioxide (22-30) mmol/L Anion Gap mmol/L BUN (9-20) mg/dL Creatinine (0.66-1.25) mg/dL Est GFR (CKD-EPI)AfAm (>60 ml/min/1.73 sqM) Est GFR (CKD-EPI)NonAf (>60 ml/min/1.73 sqM) Glucose (74-99) mg/dL Calcium (8.4-10.2) mg/dL Magnesium (1.6-2.3) mg/dL Total Bilirubin (0.2-1.3) mg/dL AST (17-59) U/L ALT (4-49) U/L Alkaline Phosphatase (38-126) U/L Troponin I <0.012 <0.012 (0.000-0.034) ng/mL NT-Pro-B Natriuret Pep pg/mL Total Protein (6.3-8.2) g/dL Albumin (3.5-5.0) g/dL - Radiology Data Radiology results: report reviewed, image reviewed Two-view x-ray of the chest is obtained. Report was reviewed in its entirety. Impression by Dr. Snider shows fibrotic changes subsegmental atelectasis at the lung bases stable compared to old exam. No heart failure. There is probably COPD. Disposition Clinical Impression: Chest pain Disposition: HOME SELF-CARE Condition: Good Instructions (If sedation given, give patient instructions): Chest Pain (ED) Additional Instructions: Follow-up she primary care physician and your crew scheduler for recheck tomorrow. Return to the emergency department immediately for any new, worsening, or concerning symptoms. Is patient prescribed a controlled substance at d/c from ED?: No Referrals: Chris Ervin MD [Primary Care Provider] - 1-2 days Time of Disposition: 01:42
== END 2019-09-28 01:54 | disposition home or self-care (01) ==
LOC: EC 21:13
DX: R07.89 Other chest pain (principal); R06.2 Wheezing; R06.02 Shortness of breath; R05 Cough; J44.9 Chronic obstructive pulmonary disease, unspecified; I10 Essential (primary) hypertension; M19.90 Unspecified osteoarthritis, unspecified site; I25.10 Atherosclerotic heart disease of native coronary artery without angina pectoris; Z87.891 Personal history of nicotine dependence; Z88.0 Allergy status to penicillin; Z88.1 Allergy status to other antibiotic agents; Z88.8 Allergy status to other drugs, medicaments and biological substances; Z91.041 Radiographic dye allergy status; Z79.51 Long term (current) use of inhaled steroids; Z79.52 Long term (current) use of systemic steroids; Z79.82 Long term (current) use of aspirin; Z79.890 Hormone replacement therapy; Z79.891 Long term (current) use of opiate analgesic; Z79.899 Other long term (current) drug therapy; Z95.5 Presence of coronary angioplasty implant and graft; Z96.652 Presence of left artificial knee joint; Z82.49 Family history of ischemic heart disease and other diseases of the circulatory system; Z80.1 Family history of malignant neoplasm of trachea, bronchus and lung
CPT/HCPCS: 36415 ×2; 93005; 83880; 80053; 83735; 84484 ×2; 85025; 85610; 85730; 71046; 99285; 96374; 96375; J2270; J2405

== ENCOUNTER → 2019-10-03 | Outpatient (CLI) | payer MEDICARE ==
--- NOTE | 2019-10-03 14:51 | CT ---
EXAMINATION TYPE: CT angio neck DATE OF EXAM: 10/03/2019 HISTORY: Headaches and chest pain for 6 months per patient. Carotid stenosis bilateral with out cereb rovascular infarction border. COMPARISON: NONE CT DLP: 369.1 mGycm. Automated Exposure Control for Dose Reduction was Utilized. TECHNIQUE: CTA scan of the neck is performed with IV Contrast, patient injected with 65 mL of Isovue 370, axial images are obtained, coronal and sagittal reformatted images are reviewed. Three-D recons tructed images are created on an independent workstation and reviewed. FINDINGS: Carotid/Vascular Structures: Normal three-vessel origin from the aortic arch. Right common carotid ar shantel shows normal origin from right brachiocephalic artery. There is moderate calcified plaques in th e right carotid bulb extending into proximal internal and external carotid arteries without significa nt stenosis identified. More mild calcified plaque along course of right proximal internal carotid ar shantel is present. There is mild calcified plaque supraclinoid segment. There is more severe calcified plaques on the left carotid bulb extending into proximal internal/exte rnal carotid arteries. Significant stenosis at origin left internal carotid artery is thought present . Lumen diameter is narrowed to 1.6 mm raw data image 496 due to calcified and noncalcified plaque wi th more prominent calcified plaque isn't causing greater narrowing image 502 down to 1.3 mm before re constitution. Length of focal narrowing is well under 1.0 cm estimated roughly 7 to 8 mm. There is re constitution to 5.9 mm superior to this No significant stenosis in the left external carotid artery. There is additional mild/moderate calcified plaque in the proximal left internal carotid artery. Tort uous course is present. Mild calcified plaque distal supraclinoid segment without additional signific ant stenosis. Dominant left vertebral artery but both vertebral arteries patent to basilar junction without signifi cant focal stenosis.. Other: Mild to moderate underlying emphysematous change in the upper lungs. Anterior fusion plate and disc material C4-C6 level. Moderate disc space narrowing and spurring C6-C7 level. Mild to moderate spurring and disc space narrowing C3-C4 level. IMPRESSION: Significant stenosis at origin of left internal carotid artery estimated approaching 80%. Consider further investigation with direct catheter angiogram to better evaluate and treat.
== END | disposition home or self-care (01) ==
LOC: RADCTMAIN 12:57
PROVIDERS: ATTEND Internal Medicine Interventional Cardiology
DX: I65.22 Occlusion and stenosis of left carotid artery (principal); Z91.048 Other nonmedicinal substance allergy status
CPT/HCPCS: 70498; Q9967

== ENCOUNTER 2019-11-14 08:00 | Inpatient (IN) | payer MEDICARE ==
[2019-11-28 18:17] VITALS: BMI 31.7
[2019-11-30] MEDS ORDERED: CLOPIDOGREL 75 MG TAB PO STA (06:44)
[2019-11-30] MEDS ORDERED: NITROGLYCERIN SL TABS 0.4 MG TAB SUBLINGUAL PRN (06:44)
[2019-11-30] MEDS ORDERED: ASPIRIN 325 MG TAB PO STA (06:44)
[2019-11-30] MEDS ORDERED: SODIUM CHLORIDE 0.9% 1,000 ML in EMPTY BAG 1 BAG IV ONE (06:44)
[2019-11-30 10:14] LABS: Basophils % (A) 0 %; Eosinophils % (A) 0 %; HCT 41.5 % (39.0-53.0); HGB 14.5 gm/dL (13.0-17.5); Lymphocytes # (A) 0.6 k/uL (1.0-4.8); Lymphocytes % (A) 6 %; MCH 35.5 pg (25.0-35.0); MCHC 34.9 g/dL (31.0-37.0); MCV 101.5 fL (80.0-100.0); Macrocytosis Slight; Mean Platelet Volume 7.5; Monocytes # (A) 0.4 k/uL (0-1.0); Monocytes % (A) 4 %; Neutrophils # (A) 9.6 k/uL (1.3-7.7); Neutrophils % (A) 90 %; Platelet Count 248 k/uL (150-450); RBC 4.09 m/uL (4.30-5.90); RDW 13.2 % (11.5-15.5); WBC 10.7 k/uL (3.8-10.6)
[2019-11-30] MEDS ORDERED: LIDOCAINE 1% INJ 10MG/ML (20 ML MDV) SQ ONE (11:07)
[2019-11-30] MEDS ORDERED: HEPARIN SODIUM 1,000 UN/ML (10ML VL) IV ONE (11:10)
[2019-11-30] MEDS ORDERED: IOPAMIDOL-370 125ML BTL INJ ONE (11:59)
[2019-11-30] MEDS ORDERED: CLOPIDOGREL 75 MG TAB PO ONE (12:03)
[2019-11-30] MEDS ORDERED: IPRATROPIUM 0.5 MG/2.5 ML NEBU INHALATION PRN (12:27)
[2019-11-30] MEDS ORDERED: LEVALBUTEROL HCL 1.25 MG INHALATION PRN (12:27)
[2019-11-30] MEDS ORDERED: RX INFO: IV CONTRAST WAS GIVEN 1 EACH MISC MISCELLANE PRN (12:29)
[2019-11-30] MEDS ORDERED: ATROPINE SULFATE 0.1 MG/ML 10ML SYRINGE IV PRN (12:29)
[2019-11-30] MEDS ORDERED: MAG HYDROX/AL HYDROX/SIMETH 30 ML CUP PO PRN (12:29)
[2019-11-30] MEDS ORDERED: SODIUM CHLORIDE 0.9% 1,000 ML IV SCH (12:30)
--- NOTE | 2019-11-30 12:32 | IR ---
Fluoroscopy HISTORY: Right-sided stenosis 12.5 minutes fluoroscopy time supplied to the referring clinician. 458 intraoperative C-arm images d ocument the procedure. See dictated report from cardiology.
--- NOTE | 2019-11-30 12:46 | P.PCN ---
Date of Procedure: 11/30/19 Operative Findings: CAROTID STENTING REPORT Performing physician: Federico Diaz M.D. Procedure performed: 1. Successful stenting of the left ICA using 86 mm x 30 mm XACT with adjunctive use of Emboshield filter wire and with an excellent angiographic results 2. an aortic arch angiogram 3. Selective left common and left internal carotid artery angiogram 4. Intracranial angiogram Indication: This is a 63-year-old gentleman with history of coronary artery disease and prior revascularization as well as hypertension and dyslipidemia who was diagnosed recently was critical disease involving the left internal carotid artery. Approach: Right common femoral artery Complications: None Level of sedation: The procedure was performed without any sedation with a procedure length of 58 minutes Procedure description: After obtaining an informed consent the patient was brought to the cardiac lab animal technologist. The right common femoral artery was cannulated using micropuncture technique under ultrasound guidance, the micropuncture wire passed easily then I placed a 6-Italian sheath in the right common femoral artery. At that point anticoagulation was initiated using heparin and the patient was given a total of 10,000 units of heparin with continuous ACT monitoring throughout the procedure Subsequently I did an aortic arch angiogram using 5-Italian pigtail catheter with poor injection and using digital subsection. That was performed in the PARAGUAYAN projection. That revealed type I aortic arch. Subsequently I did select the left internal carotid artery using JB2 catheter. I did selective left common and left external carotid artery angiogram which revealed critical disease involving the takeoff of the left internal carotid artery with calcified lesion and very focal lesion. At that point I did wire the left common carotid artery using super core wire. Subsequently I did exchange my 11 cm 6-Italian sheath into a 90 cm 6-Italian sheath using the super core wire. The tip of the sheath was positioned in the proximal left common carotid artery. I did perform angiogram again to verify the location of the lesion. After reviewing the angiogram I did decide using 86 mm x 30 mm XACT stent. At that point I started the process by prepping my equipment including the retrieval first, the postdilatation balloon, the filter wire. I did wire the lesion with the filter wire and the wire was advanced all the way distal to the lesion in the left internal carotid artery then the filter was deployed under fluoroscopy guidance. Please note that the filter wire was prepped under saline injection and making sure no bubbles left in the system. The filter was used was Emboshield NALLELY which was 7.2 mm Subsequently I did direct stenting of the lesion where the stent was deployed under fluoroscopy guidance with contrast injection. I postdilated the stent initially using 5 mm x 20 mm balloon and subsequently using 6 x 20 mm balloon. Final angiogram showed excellent angiographic results and the procedure was completed without any complication. After that I did exchange my long sheath into short sheath which was 11 cm. By the end I did selective right common femoral artery angiogram before the procedure was completed. Postprocedure management: 1. Dual antiplatelet therapy 2. Risk factors modification 3. Follow-up with the patient
[2019-11-30 13:58] LABS: Glucose,Whole Blood 96 mg/dL (75-99)
--- NOTE | 2019-11-30 14:12 | P.PRLE ---
RE: Ryne Mondragon Dear , Mr. Lenard Mondragon underwent today successful percutaneous stenting of the left internal carotid artery with a good angiographic results and without any complications Thank you for allowing me participate in his care.
[2019-11-30] MEDS ORDERED: SODIUM CHLORIDE 0.9% 500 ML 250 ML IV ONE (14:22)
[2019-11-30] MEDS: DOPamine DRIP 800 MG in WATER FOR INJECTION 1 250ML.BAG IV SCH (14:56)
[2019-11-30] MEDS: HYDROcodone/APAP 10-325MG 1 EACH TAB PO SCH ×3 (15:28→21:35)
[2019-11-30] MEDS: IPRATROPIUM-ALBUTEROL 3 ML NEB INHALATION PRN ×2 (15:56→20:43)
[2019-11-30] MEDS: PANTOPRAZOLE 40 MG TABLET PO SCH (18:04)
[2019-11-30] MEDS: SYMBICORT 160-4.5 MCG INHALER INHALATION SCH (20:43)
[2019-11-30] MEDS ORDERED: MINOXIDIL 10 MG TAB PO SCH (21:00)
[2019-11-30] MEDS ORDERED: BUDESONIDE 0.5 MG/2 ML NEBU INHALATION SCH (21:00)
[2019-11-30] MEDS: ATORVASTATIN 40 MG TAB PO SCH (21:06)
[2019-12-01] MEDS: HYDROcodone/APAP 10-325MG 1 EACH TAB PO SCH ×4 (03:01→20:55)
[2019-12-01] MEDS: IPRATROPIUM-ALBUTEROL 3 ML NEB INHALATION PRN ×4 (03:06→20:00)
[2019-12-01 06:12] LABS: Basophils % (A) 0 %; Eosinophils % (A) 0 %; HCT 35.2 % (39.0-53.0); HGB 12.2 gm/dL (13.0-17.5); Lymphocytes # (A) 1.6 k/uL (1.0-4.8); Lymphocytes % (A) 18 %; MCH 35.1 pg (25.0-35.0); MCHC 34.5 g/dL (31.0-37.0); MCV 101.6 fL (80.0-100.0); Macrocytosis Slight; Mean Platelet Volume 7.5; Monocytes # (A) 0.5 k/uL (0-1.0); Monocytes % (A) 5 %; Neutrophils # (A) 6.5 k/uL (1.3-7.7); Neutrophils % (A) 74 %; Platelet Count 208 k/uL (150-450); RBC 3.46 m/uL (4.30-5.90); RDW 13.3 % (11.5-15.5); WBC 8.8 k/uL (3.8-10.6)
[2019-12-01 06:23] LABS: African American GFR (CKD) >90 (>60 ml/min/1.73 sqM); Anion Gap 3 mmol/L; Blood Urea Nitrogen 20 mg/dL (9-20); Calcium 8.3 mg/dL (8.4-10.2); Carbon Dioxide 32 mmol/L (22-30); Chloride 99 mmol/L (98-107); Glucose 85 mg/dL (74-99); Non-African American GFR(CKD) >90 (>60 ml/min/1.73 sqM); Potassium 4.4 mmol/L (3.5-5.1); Sodium 134 mmol/L (137-145)
[2019-12-01] MEDS: PANTOPRAZOLE 40 MG TABLET PO SCH ×2 (06:55→17:30)
[2019-12-01] MEDS: LEVOTHYROXINE 50 MCG TAB PO SCH (06:55)
[2019-12-01] MEDS: SYMBICORT 160-4.5 MCG INHALER INHALATION SCH ×2 (08:21→20:00)
[2019-12-01] MEDS: ASPIRIN 325 MG TAB PO SCH (08:26)
[2019-12-01] MEDS: MONTELUKAST 10 MG TAB PO SCH (08:26)
[2019-12-01] MEDS: THEOPHYLLINE 24 HOUR 400 MG CAP.ER.24H PO SCH (08:26)
[2019-12-01] MEDS: predniSONE 10 MG TAB PO SCH (08:26)
--- NOTE | 2019-12-01 08:31 | DS ---
DISCHARGE SUMMARY ADMISSION DATE: 11/30/2019 DISCHARGE DATE: 12/01/2019 BRIEF HISTORY: This is a pleasant 63-year-old gentleman with history of coronary artery disease and prior revascularization, who underwent yesterday successful stenting of the left internal carotid artery from right groin approach. He was seen today. His right groin is bruised without any discrete hematoma. He is still requiring small dose of dopamine. I am going to wean him from the dopamine. I am holding the Coreg as well as losartan hydrochlorothiazide combination. Will monitor the patient throughout the day, if he is off dopamine with good blood pressure, he possibly can be discharged home. Otherwise, I will keep the patient overnight and follow up with him tomorrow. MMODL / IJN: [id number] /
[2019-12-01] MEDS ORDERED: MINOXIDIL 2.5 MG TAB PO SCH (09:00)
[2019-12-01] MEDS ORDERED: SPIRONOLACTONE 25 MG TAB PO SCH (09:00)
[2019-12-01] MEDS ORDERED: VALSARTAN 160 MG TAB PO SCH (09:00)
[2019-12-01] MEDS ORDERED: ATORVASTATIN 80 MG TAB PO SCH (09:00)
[2019-12-01] MEDS ORDERED: HYDROCHLOROTHIAZIDE 25 MG TAB PO SCH (09:00)
[2019-12-01] MEDS ORDERED: CLOPIDOGREL 75 MG TAB PO SCH (09:00)
[2019-12-01] MEDS ORDERED: NON FORMULARY DRUG (Aspirin Ec 81 MG) PO SCH (09:00)
[2019-12-01] MEDS: CLOPIDOGREL 75 MG TAB PO SCH (12:26)
[2019-12-01] MEDS: DOPamine DRIP 800 MG in WATER FOR INJECTION 1 250ML.BAG IV SCH (17:18)
[2019-12-01] MEDS: ATORVASTATIN 40 MG TAB PO SCH (20:55)
[2019-12-02] MEDS: IPRATROPIUM-ALBUTEROL 3 ML NEB INHALATION PRN ×4 (00:03→10:56)
[2019-12-02 06:22] LABS: Basophils % (A) 0 %; Eosinophils # (A) 0.1 k/uL (0-0.7); Eosinophils % (A) 1 %; HCT 34.3 % (39.0-53.0); HGB 11.6 gm/dL (13.0-17.5); Lymphocytes # (A) 1.5 k/uL (1.0-4.8); Lymphocytes % (A) 19 %; MCH 34.7 pg (25.0-35.0); MCHC 33.9 g/dL (31.0-37.0); MCV 102.5 fL (80.0-100.0); Macrocytosis Slight; Mean Platelet Volume 7.6; Monocytes # (A) 0.5 k/uL (0-1.0); Monocytes % (A) 6 %; Neutrophils % (A) 72 %; Platelet Count 168 k/uL (150-450); RBC 3.35 m/uL (4.30-5.90); RDW 13.3 % (11.5-15.5); WBC 8.3 k/uL (3.8-10.6)
[2019-12-02 06:29] LABS: African American GFR (CKD) >90 (>60 ml/min/1.73 sqM); Anion Gap 3 mmol/L; Blood Urea Nitrogen 18 mg/dL (9-20); Calcium 8.1 mg/dL (8.4-10.2); Carbon Dioxide 32 mmol/L (22-30); Chloride 102 mmol/L (98-107); Glucose 95 mg/dL (74-99); Non-African American GFR(CKD) >90 (>60 ml/min/1.73 sqM); Potassium 4.4 mmol/L (3.5-5.1); Sodium 137 mmol/L (137-145)
[2019-12-02] MEDS: LEVOTHYROXINE 50 MCG TAB PO SCH (07:16)
[2019-12-02] MEDS: PANTOPRAZOLE 40 MG TABLET PO SCH (07:16)
[2019-12-02] MEDS: SYMBICORT 160-4.5 MCG INHALER INHALATION SCH (07:18)
[2019-12-02 08:18] VITALS: TEMP 97.8
[2019-12-02] MEDS: HYDROcodone/APAP 10-325MG 1 EACH TAB PO SCH (08:21)
[2019-12-02] MEDS: CLOPIDOGREL 75 MG TAB PO SCH (08:22)
[2019-12-02] MEDS: ASPIRIN 325 MG TAB PO SCH (08:22)
[2019-12-02] MEDS: predniSONE 10 MG TAB PO SCH (08:22)
[2019-12-02] MEDS: THEOPHYLLINE 24 HOUR 400 MG CAP.ER.24H PO SCH (08:22)
[2019-12-02] MEDS: MONTELUKAST 10 MG TAB PO SCH (08:22)
[2019-12-02 11:10] VITALS: PULSE 65
[2019-12-02 11:38] VITALS: BP 134/68; RESP 20
--- NOTE | 2019-12-02 12:26 | DS ---
DISCHARGE SUMMARY ADMISSION DATE: 11/30/2019 DISCHARGE DATE: 12/02/2019 BRIEF HISTORY: This is a pleasant 63-year-old gentleman who underwent successful stenting of the left internal carotid artery with an excellent angiographic results and without any complication. The patient was kept overnight 1 day because of the pressure, which was marginal, required vasopressors. He was seen this morning. He is off vasopressors. He is asymptomatic from a cardiovascular standpoint of view. He is going to be discharged home on dual anti-platelet therapy and I will hold any blood pressure medication at this point until I see him in the office early next week. MMODL / IJN: [id number] /
--- NOTE | 2019-12-02 12:51 | P.PCN ---
Date of Procedure: 12/02/19 Operative Findings: CARDIAC CATHETERIZATION PERFORMING PHYSICIAN: Federico Diaz MD, RPVI PROCEDURE PERFORMED: 1. Selective right and left coronary angiogram 2. Left heart catheterization INDICATION: This is a very pleasant 63-year-old gentleman who sees Dr. Nava in the office on regular basis who was experiencing recently symptoms of chest discomfort. He underwent myocardial perfusion imaging stress is and that revealed reversible defect involving the inferolateral wall of the LV. Because of that a heart catheterization was advised COMPLICATION: Not APPROACH: Right common femoral artery LEVEL OF SEDATION: Moderate with a sedation left of 25 minutes PROCEDURE DESCRIPTION: After obtaining an informed consent, the patient was brought to cardiac culture media laboratory assistant. Initially I did access the right radial artery but the right subclavian was extr crow tortuous and had difficulties engaging the right coronary artery from right radial approach and because of that the right radial approach was reported and I decided to go from the right groin. Local anesthesia was performed using lidocaine subcutaneously. The right common femoral artery was cannulated using Seldinger technique, the guidewire passed easily, following that we advanced a 6 Afghan sheath dilator assembly, the wire and dilator were removed and sheath was flushed. Selective right and left coronary angiogram using a 6-Afghan JR4 and JL catheters. Following that we did left heart catheterization using 6-Afghan pigtail catheter. The procedure was completed there was no complication. SELECTIVE CORONARY ANGIOGRAM: The right coronary artery: Is a large caliber vessel and a dominant vessel and appears to be angiographically normal. Distally bifurcates into PDA and PLV branches and both appeared to be angiographically normal Left main: Is angiographically normal. Bifurcates into LCx and LAD The left circumflex: Is a large caliber vessel and nondominant vessel. Its angiographically normal. In the midportion gives rises into a large OM branch which appears to be angiographically normal The left anterior descending artery: Is a large caliber vessel. Its angiographically normal. The proximal LAD gives rises into a large diagonal branch which seems to be angiographically normal. The mid LAD gives rises into another second diagonal branch which seems to be angiographically normal. HEMODYNAMICS: The LVEDP was 14 mmHg without significant gradient across aortic valve CONCLUSION: 1. Normal coronary angiogram 2. Mildly elevated LVEDP POSTPROCEDURE MANAGEMENT: Medical treatment
[2019-12-05] MEDS ORDERED: ERGOCALCIFEROL 50,000 UNIT CAP PO SCH (09:00)
== END 2019-12-02 12:16 | disposition home or self-care (01) | DRG 36 ==
LOC: 2ORMAIN 11-30 09:28 → 2SICU 11-30 12:55
PROVIDERS: ADMIT Internal Medicine Interventional Cardiology; ATTEND Internal Medicine Interventional Cardiology
PROC: B3141ZZ Fluoroscopy of Left Common Carotid Artery using Low Osmolar Contrast (ICD-10-PCS; 2019-11-30)
PROC: B3171ZZ Fluoroscopy of Left Internal Carotid Artery using Low Osmolar Contrast (ICD-10-PCS; 2019-11-30)
PROC: B31R1ZZ Fluoroscopy of Intracranial Arteries using Low Osmolar Contrast (ICD-10-PCS; 2019-11-30)
PROC: 037L3DZ Dilation of Left Internal Carotid Artery with Intraluminal Device, Percutaneous Approach (ICD-10-PCS; principal; 2019-11-30 10:30)
PROC: 4A023N7 Measurement of Cardiac Sampling and Pressure, Left Heart, Percutaneous Approach (ICD-10-PCS; 2019-12-02)
PROC: B2111ZZ Fluoroscopy of Multiple Coronary Arteries using Low Osmolar Contrast (ICD-10-PCS; 2019-12-02)
DX: I65.23 Occlusion and stenosis of bilateral carotid arteries (principal); I10 Essential (primary) hypertension; E78.5 Hyperlipidemia, unspecified; I25.10 Atherosclerotic heart disease of native coronary artery without angina pectoris; R07.89 Other chest pain; I27.20 Pulmonary hypertension, unspecified; I08.1 Rheumatic disorders of both mitral and tricuspid valves; Z79.82 Long term (current) use of aspirin; Z79.890 Hormone replacement therapy; Z79.51 Long term (current) use of inhaled steroids; Z79.52 Long term (current) use of systemic steroids; Z79.02 Long term (current) use of antithrombotics/antiplatelets; Z95.5 Presence of coronary angioplasty implant and graft; Z87.891 Personal history of nicotine dependence
CPT/HCPCS: 37215; 80048; 84484; 85025; 85347; 94640

== ENCOUNTER 2020-06-05 07:38 | Day surgery (SDC) | payer MEDICARE ==
[2020-05-31 15:23] VITALS: BMI 32.5
[2020-06-05 08:19] VITALS: TEMP 98.2
[2020-06-05 08:19] LABS: Basophils % (A) 0 %; Eosinophils % (A) 0 %; HCT 39.8 % (39.0-53.0); HGB 13.3 gm/dL (13.0-17.5); Lymphocytes # (A) 0.8 k/uL (1.0-4.8); Lymphocytes % (A) 8 %; MCH 34.8 pg (25.0-35.0); MCHC 33.4 g/dL (31.0-37.0); MCV 104.2 fL (80.0-100.0); Macrocytosis Slight; Mean Platelet Volume 8.3; Monocytes # (A) 0.5 k/uL (0-1.0); Monocytes % (A) 5 %; Neutrophils # (A) 8.3 k/uL (1.3-7.7); Neutrophils % (A) 86 %; Platelet Count 262 k/uL (150-450); RBC 3.82 m/uL (4.30-5.90); RDW 13.1 % (11.5-15.5); WBC 9.7 k/uL (3.8-10.6)
[2020-06-05] MEDS ORDERED: SODIUM CHLORIDE 0.9% 1,000 ML IV ONE (08:21)
[2020-06-05] MEDS ORDERED: MIDAZOLAM 2 MG/2 ML VIAL IV ONE (09:13)
[2020-06-05] MEDS ORDERED: LIDOCAINE 1% INJ 10MG/ML (20 ML MDV) SQ ONE (09:13)
[2020-06-05] MEDS ORDERED: VERAPAMIL SYRINGE (5 MG/10 ML) INTRAARTER ONE (09:15)
[2020-06-05] MEDS ORDERED: IOPAMIDOL-370 125ML BTL INJ ONE (09:21)
[2020-06-05] MEDS ORDERED: RX INFO: IV CONTRAST WAS GIVEN 1 EACH MISC MISCELLANE PRN (09:31)
[2020-06-05] MEDS ORDERED: SODIUM CHLORIDE 0.9% 1,000 ML IV SCH (09:45)
--- NOTE | 2020-06-05 11:13 | LTR ---
DATE OF SERVICE: 06/05/2020 RE; Ryne Mondragon Dear Dr. Ervin; Mr. Ryne Mondragon underwent today a heart catheterization and that revealed patent stent in the mid right coronary artery with normal left coronary system. I advised maximized medical treatment and aggressive risk factors modifications and follow up with the patient. Thank you for allowing us to participate in his care and please do not hesitate to call if you have any question or concern. Sincerely, Federico Diaz MD MMIAN / DAMIENN: [id number] /
--- NOTE | 2020-06-05 11:13 | CC ---
CARDIAC CATHETERIZATION REPORT DATE OF SERVICE: 06/05/2020 PERFORMING PHYSICIAN: Federico Diaz MD. PROCEDURE PERFORMED: 1. Selective right and left coronary angiogram. 2. Left heart catheterization. INDICATION: This is a 64-year-old gentleman with coronary artery disease and prior stenting of the RCA who was experiencing symptoms of chest discomfort with exertion concerning for severe underlying coronary artery disease. APPROACH: Right radial artery. COMPLICATION: None. LEVEL OF SEDATION: Moderate with sedation length of 13 minutes. PROCEDURE DESCRIPTION: After obtaining an informed consent, the patient was brought to the cardiac labor economics teacher. The right radial artery was cannulated using micropuncture technique, the micropuncture wire passed easily, then I placed a 6-Martiniquais sheath at the right radial artery. After that I gave the patient 2 mg of verapamil IA and 10,000 units of heparin IV. Selective right and left coronary angiogram performed with JR4 and JL3.5 catheters. Left heart catheterization was performed using the JR4 catheter which crossed the aortic valve then I did pullback across the valve. The procedure was completed without any complication. SELECTIVE CORONARY ANGIOGRAM: 1. The right coronary artery is a large caliber vessel, it is a dominant vessel. The RCA has mild disease in the proximal portion. The mid RCA is stented and the stent is patent. The RCA distally is normal and bifurcates into PDA and PLV branches, both appeared to be angiographically normal. 2. The left main is angiographically normal. It bifurcates into left circumflex, ramus intermedius, and left anterior descending artery. 3. The left circumflex is a large caliber vessel, it is a nondominant vessel. The left circumflex is angiographically normal, it gives rise into midportion into a large OM which appeared to be angiographically normal. 4. The ramus intermedius is a large caliber vessel and seems to be angiographically normal. 5. The LAD is angiographically normal as well. It gives rise in the midportion to a diagonal branch which seems to be normal. 6. HEMODYNAMICS: The LVEDP was 8-10 mmHg without significant gradient across the aortic valve. CONCLUSION: 1. Patent stent in the mid right coronary artery. 2. Normal left coronary system. 3. Normal left ventricular end-diastolic pressure. POSTPROCEDURE MANAGEMENT: Medical treatment and follow up with the patient. MMODL / IJN: [id number] /
[2020-06-05 20:09] VITALS: RESP 16
[2020-06-05 20:13] VITALS: BP 122/56; PULSE 62
== END 2020-06-05 15:08 | disposition home or self-care (01) ==
LOC: CATHCVL 07:38 → EDSTATUS 09:00 → CATHCVL 15:08
PROVIDERS: ATTEND Internal Medicine Interventional Cardiology
DX: I25.110 Atherosclerotic heart disease of native coronary artery with unstable angina pectoris (principal); I10 Essential (primary) hypertension; E78.5 Hyperlipidemia, unspecified; I65.22 Occlusion and stenosis of left carotid artery; Z95.5 Presence of coronary angioplasty implant and graft; Z79.82 Long term (current) use of aspirin; Z79.890 Hormone replacement therapy; Z79.899 Other long term (current) drug therapy; Z79.02 Long term (current) use of antithrombotics/antiplatelets
CPT/HCPCS: 93458; 85025; C1769; C1894; J2250; J2001; J1644; Q9967

== ENCOUNTER → 2021-04-05 | Outpatient (CLI) | payer MEDICARE ==
--- NOTE | 2021-04-05 15:27 | CT ---
EXAMINATION TYPE: CT chest wo con DATE OF EXAM: 04/05/2021 COMPARISON: 03/18/2013 HISTORY: f/u COPD CT DLP: 526.4 mGycm. Automated Exposure Control for Dose Reduction was Utilized. TECHNIQUE: CT scan of the thorax is performed without IV contrast. FINDINGS: LUNGS: There is hyperinflation and expansion of the lungs compatible with COPD. Subsegmental changes are seen in the left upper lobe and left lower lobe. Within the right lung base there is patchy areas of consolidation. Finding is most likely in the basis of atelectasis correlation clinically is recom mended to exclude pneumonia.. MEDIASTINUM: Lack of IV contrast is noted to limit evaluation for mediastinal and especially hilar ad enopathy. There are no definitive greater than 1 cm hilar or mediastinal lymph nodes. The heart is en larged. Coronary artery calcification noted. Atherosclerotic change aorta with no evidence of aneurys m. OTHER: Hypertrophic and degenerative changes of the spine. A trace amount gynecomastia on the left. IMPRESSION: 1. Neuropathic patchy subsegmental areas of peribronchial thickening and consolidation could be on th e basis of chronic atelectasis rather than infiltrate correlate clinically. 2. Changes of the mild COPD.
== END | disposition home or self-care (01) ==
LOC: RADCTMAIN 14:37
PROVIDERS: ATTEND Internal Medicine Critical Care Medicine
DX: J44.9 Chronic obstructive pulmonary disease, unspecified (principal); J98.09 Other diseases of bronchus, not elsewhere classified
CPT/HCPCS: 71250

== ENCOUNTER 2021-05-23 11:58 | Inpatient (IN) | payer MEDICARE ==
[2021-05-23] MEDS ORDERED: SODIUM CHLORIDE 0.9% 500 ML 500 ML IV STA (12:22)
[2021-05-23] MEDS ORDERED: DILTIAZEM DRIP BOLUS FROM BAG 1 MG SOLN IV ONE (12:22)
--- NOTE | 2021-05-23 12:28 | ED ---
General Adult HPI - General Chief complaint: Chest Pain Stated complaint: Chest pain Time Seen by Provider: 05/23/21 12:00 Source: patient, RN notes reviewed, old records reviewed Mode of arrival: ambulatory Limitations: no limitations - History of Present Illness Initial comments: This is a 65-year-old male who presents emergency Department complaining that he hasn't been feeling right for a couple weeks and over the last few days she's had chest pain intermittently. Patient states when he sits down it seems to be better but when he gets up and moves around is extremely short of breath diaphoretic has chest pain he feels palpitations. Patient states he has no history of atrial fibrillation. Patient denies any recent fever chills or cough. Patient denies abdominal pain patient denies nausea vomiting or diarrhea. Patient denies any headache patient denies lightheadedness or dizziness. - Related Data Home Medications Medication Instructions Recorded Confirmed Levalbuterol HCl [Xopenex 1.25 mg INHALATION RT-QID PRN 03/24/14 06/05/20 Nebulized] minoxidiL 10 mg PO HS 08/28/14 06/05/20 Hydrocodone/Acetaminophen 1 tab PO QID 02/12/16 06/05/20 [Hydrocodone-Acetamin 10-325 mg] Theophylline Anhydrous [Uniphyl] 200 mg PO BID 02/12/16 06/05/20 Aspirin EC [Ecotrin Low Dose] 81 mg PO DAILY 02/05/17 06/05/20 Ergocalciferol [Vitamin D2 50,000 unit PO MO 02/05/17 06/05/20 (DRISDOL)] Ipratropium Nebulized [Atrovent 0.5 mg INHALATION RT-QID PRN 02/05/17 06/05/20 Nebulized 0.2 MG/ML] Montelukast [Singulair] 10 mg PO DAILY 02/05/17 06/05/20 predniSONE 10 mg PO DAILY 02/05/17 06/05/20 Budesonide-Formot 160-4.5 Mcg 2 puff INHALATION BID 07/13/19 06/05/20 [Symbicort 160-4.5 Mcg Inhaler] Levothyroxine Sodium [Synthroid] 50 mcg PO DAILY 07/13/19 06/05/20 minoxidiL 5 mg PO QAM 07/13/19 06/05/20 Budesonide [Pulmicort] 0.5 mg INHALATION BID 11/28/19 06/05/20 Pantoprazole Sodium [Protonix] 40 mg PO BID 11/28/19 06/05/20 Spironolactone [Aldactone] 25 mg PO DAILY 11/28/19 06/05/20 Albuterol Sulfate [Ventolin HFA] 1 - 2 puff INHALATION Q6H PRN 05/31/20 05/31/20 Carvedilol [Coreg] 12.5 mg PO BID 05/31/20 06/05/20 Valsartan/Hydrochlorothiazide 1 each PO DAILY 05/31/20 05/31/20 [Valsartan-Hctz 320-25 mg Tab] Atorvastatin Calcium [Lipitor] 80 mg PO HS 06/05/20 06/05/20 Previous Rx's Medication Instructions Recorded Clopidogrel Bisulfate [Plavix] 75 mg PO DAILY #90 tab 07/18/19 Allergies Allergy/AdvReac Type Severity Reaction Status Date / Time arformoterol tartrate Allergy Dyspnea Verified 05/23/21 11:59 [From Brovana] Iodinated Contrast Media Allergy Anaphylaxis Verified 05/23/21 11:59 [Iodinated Contrast Media - IV Dye] moxifloxacin [From Avelox] Allergy Dyspnea Verified 05/23/21 11:59 Penicillins Allergy Dyspnea Verified 05/23/21 11:59 Quinolones Allergy Dyspnea Verified 05/23/21 11:59 vancomycin Allergy Dyspnea Verified 05/23/21 11:59 Review of Systems ROS Statement: Those systems with pertinent positive or pertinent negative responses have been documented in the HPI. ROS Other: All systems not noted in ROS Statement are negative. Past Medical History Past Medical History: Asthma, COPD, GERD/Reflux, Hyperlipidemia, Hypertension, Osteoarthritis (OA), Respiratory Disorder Additional Past Medical History / Comment(s): Severe persistent bronchial asthma, coronary artery disease, hyperlipidemia-resolved, hypertension, obesity, obstructive sleep apnea-resolved, osteoarthritis, very closely in the lower extremities, chronic constipation History of Any Multi-Drug Resistant Organisms: None Reported Past Surgical History: Appendectomy, Heart Catheterization With Stent, Hernia Repair, Orthopedic Surgery, Tonsillectomy Additional Past Surgical History / Comment(s): Hernia repair 4, tonsillectomy, appendectomy, bronchoscopy, total left knee replacement 2012, anterior and cervical spinal decompression and fusion at the level of C4-C5, C5-C6 and cardiac catheterization with stent placement, carotid stent Past Anesthesia/Blood Transfusion Reactions: No Reported Reaction Date of Last Stent Placement:: 07/18/2019 Past Psychological History: No Psychological Hx Reported Smoking Status: Former smoker Past Alcohol Use History: None Reported Past Drug Use History: None Reported - Past Family History Brother(s) Family Medical History: Cancer Additional Family Medical History / Comment(s): Brain cancer. Son(s) Family Medical History: Myocardial Infarction ([place]) Father Family Medical History: Cancer Additional Family Medical History / Comment(s): Father of Lung cancer at age 78yrs. Mother Family Medical History: Coronary Artery Disease (CAD), Myocardial Infarction ([place]) Additional Family Medical History / Comment(s): Mother at age 48yrs while having open heart surgery. General Exam - General Exam Comments Initial Comments: GENERAL: Patient is well-developed and well-nourished. Patient is nontoxic and well- hydrated and is in mild distress. ENT: Neck is soft and supple. No significant lymphadenopathy is noted. Oropharynx is clear. Moist mucous membranes. Neck has full range of motion without eliciting any pain. EYES: The sclera were anicteric and conjunctiva were pink and moist. Extraocular movements were intact and pupils were equal round and reactive to light. Eyelids were unremarkable. PULMONARY: Unlabored respirations. Good breath sounds bilaterally. No audible rales rhonchi or wheezing was noted. CARDIOVASCULAR: Patient is tachycardic at about 180 beats a minute ABDOMEN: Soft and nontender with normal bowel sounds. SKIN: Skin is clear with no lesions or rashes and otherwise unremarkable. NEUROLOGIC: Patient is alert and oriented x3. Cranial nerves II through XII are grossly intact. Motor and sensory are also intact. Normal speech, volume and content. Symmetrical smile. MUSCULOSKELETAL: Normal extremities with adequate strength and full range of motion. LYMPHATICS: No significant lymphadenopathy is noted PSYCHIATRIC: Normal psychiatric evaluation. Limitations: no limitations Course Vital Signs 05/23/21 05/23/21 05/23/21 11:59 12:27 12:40 Temperature 98 F Pulse Rate 84 188 H 170 H Respiratory 18 24 20 Rate Blood Pressure 93/58 108/92 93/56 O2 Sat by Pulse 99 100 98 Oximetry 05/23/21 05/23/21 05/23/21 12:55 13:00 13:12 Temperature Pulse Rate 160 H 170 H 170 H Respiratory 18 18 18 Rate Blood Pressure 73/58 116/89 70/46 O2 Sat by Pulse 98 98 98 Oximetry 05/23/21 05/23/21 05/23/21 13:16 13:23 13:27 Temperature Pulse Rate 179 H 156 H 172 H Respiratory 18 18 18 Rate Blood Pressure 74/36 105/63 77/53 O2 Sat by Pulse 97 97 97 Oximetry 05/23/21 05/23/21 05/23/21 13:30 13:37 13:41 Temperature Pulse Rate 176 H 174 H 176 H Respiratory 18 18 18 Rate Blood Pressure 82/53 71/48 96/59 O2 Sat by Pulse 97 97 98 Oximetry 05/23/21 05/23/21 05/23/21 13:46 13:51 14:08 Temperature Pulse Rate 163 H 180 H 154 H Respiratory 18 18 18 Rate Blood Pressure 77/39 91/69 103/61 O2 Sat by Pulse 97 97 98 Oximetry 05/23/21 14:44 Temperature Pulse Rate 140 H Respiratory 18 Rate Blood Pressure 81/46 O2 Sat by Pulse 99 Oximetry Medical Decision Making - Medical Decision Making EKG shows A. fib with rapid ventricular response at 184 bpm QRS is 74 QT interval is 248 QTC is 434. Patient's EKG shows no ST segment elevation or depression. Patient was having some more chest pain so repeat EKG was done and showed atrial fibrillation with rapid ventricular response at 183 bpm QRS is 72 QT interval is 242 QTC is 439. Patient's EKG shows no significant ST segment elevation or depression. Cardizem was started on the patient after Cardizem bolus was given. Patient was placed on heparin. Chest x-ray showed no acute abnormality. I spoke with Dr. Diaz he wanted me to stop the Cardizem because of the low blood pressure started amiodarone. I started amiodarone and he stated that he will come see the patient in if the patient needs a LORI he'll do LORI and cardioverted if necessary. I spoke with Dr. Ervin he agreed to admit the patient admitted the patient wrote admitting orders. I spoke with Dr. Gary I agreed to be on consult for this patient. - Lab Data Result diagrams: 05/23/21 12:25 05/23/21 12:25 Lab Results 05/23/21 05/23/21 05/23/21 Range/Units 12:25 12:25 12:25 WBC 17.1 H (3.8-10.6) k/uL RBC 4.17 L (4.30-5.90) m/uL Hgb 14.9 (13.0-17.5) gm/dL Hct 43.4 (39.0-53.0) % MCV 103.9 H (80.0-100.0) fL MCH 35.8 H (25.0-35.0) pg MCHC 34.5 (31.0-37.0) g/dL RDW 13.6 (11.5-15.5) % Plt Count 302 (150-450) k/uL MPV 8.0 Neutrophils % 75 % Lymphocytes % 15 % Monocytes % 8 % Eosinophils % 1 % Basophils % 0 % Neutrophils # 12.8 H (1.3-7.7) k/uL Lymphocytes # 2.6 (1.0-4.8) k/uL Monocytes # 1.3 H (0-1.0) k/uL Eosinophils # 0.2 (0-0.7) k/uL Basophils # 0.0 (0-0.2) k/uL Macrocytosis Slight PT 11.0 (9.0-12.0) sec INR 1.0 (<1.2) APTT 23.9 (22.0-30.0) sec Sodium 137 (137-145) mmol/L Potassium 4.5 (3.5-5.1) mmol/L Chloride 99 (98-107) mmol/L Carbon Dioxide 32 H (22-30) mmol/L Anion Gap 6 mmol/L BUN 20 (9-20) mg/dL Creatinine 1.11 (0.66-1.25) mg/dL Est GFR (CKD-EPI)AfAm 80 (>60 ml/min/1.73 sqM) Est GFR (CKD-EPI)NonAf 70 (>60 ml/min/1.73 sqM) Glucose 109 H (74-99) mg/dL Calcium 10.0 (8.4-10.2) mg/dL Magnesium 1.8 (1.6-2.3) mg/dL Total Bilirubin 0.7 (0.2-1.3) mg/dL AST 41 (17-59) U/L ALT 47 (4-49) U/L Alkaline Phosphatase 64 (38-126) U/L Troponin I (0.000-0.034) ng/mL Total Protein 6.6 (6.3-8.2) g/dL Albumin 4.3 (3.5-5.0) g/dL 05/23/21 Range/Units 12:25 WBC (3.8-10.6) k/uL RBC (4.30-5.90) m/uL Hgb (13.0-17.5) gm/dL Hct (39.0-53.0) % MCV (80.0-100.0) fL MCH (25.0-35.0) pg MCHC (31.0-37.0) g/dL RDW (11.5-15.5) % Plt Count (150-450) k/uL MPV Neutrophils % % Lymphocytes % % Monocytes % % Eosinophils % % Basophils % % Neutrophils # (1.3-7.7) k/uL Lymphocytes # (1.0-4.8) k/uL Monocytes # (0-1.0) k/uL Eosinophils # (0-0.7) k/uL Basophils # (0-0.2) k/uL Macrocytosis PT (9.0-12.0) sec INR (<1.2) APTT (22.0-30.0) sec Sodium (137-145) mmol/L Potassium (3.5-5.1) mmol/L Chloride (98-107) mmol/L Carbon Dioxide (22-30) mmol/L Anion Gap mmol/L BUN (9-20) mg/dL Creatinine (0.66-1.25) mg/dL Est GFR (CKD-EPI)AfAm (>60 ml/min/1.73 sqM) Est GFR (CKD-EPI)NonAf (>60 ml/min/1.73 sqM) Glucose (74-99) mg/dL Calcium (8.4-10.2) mg/dL Magnesium (1.6-2.3) mg/dL Total Bilirubin (0.2-1.3) mg/dL AST (17-59) U/L ALT (4-49) U/L Alkaline Phosphatase (38-126) U/L Troponin I 0.074 H* (0.000-0.034) ng/mL Total Protein (6.3-8.2) g/dL Albumin (3.5-5.0) g/dL Critical Care Time Critical Care Time: Yes Total Critical Care Time: 35 Disposition Clinical Impression: Atrial fibrillation with rapid ventricular response Disposition: ADMITTED IP TO THIS HOSP Referrals: Chris Ervin MD [Primary Care Provider] - 1-2 days Time of Disposition: 14:51
[2021-05-23] MEDS ORDERED: DILTIAZEM 125 MG in SODIUM CHLORIDE 0.9% 100 ML IV SCH (12:30)
[2021-05-23] MEDS ORDERED: HEPARIN SODIUM 1,000 UN/ML (10ML VL) IV ONE (12:44)
[2021-05-23 12:46] LABS: Albumin 4.3 g/dL (3.5-5.0); Magnesium 1.8 mg/dL (1.6-2.3); Potassium 4.5 mmol/L (3.5-5.1); Total Bilirubin 0.7 mg/dL (0.2-1.3); Total Protein 6.6 g/dL (6.3-8.2)
[2021-05-23 12:54] LABS: Partial Thromboplastin Time 23.9 sec (22.0-30.0)
[2021-05-23] MEDS ORDERED: SODIUM CHLORIDE 0.9% 500 ML 500 ML IV ONE ×2 (12:54→21:50)
[2021-05-23] MEDS: HEPARIN SOD,PORK IN 0.45% NACL 25,000 UNIT in 0.45% NACL 1 250ML.BAG IV SCH (13:09)
[2021-05-23 13:15] LABS: Basophils % (A) 0 %; Eosinophils # (A) 0.2 k/uL (0-0.7); Eosinophils % (A) 1 %; HCT 43.4 % (39.0-53.0); HGB 14.9 gm/dL (13.0-17.5); Lymphocytes # (A) 2.6 k/uL (1.0-4.8); Lymphocytes % (A) 15 %; MCH 35.8 pg (25.0-35.0); MCHC 34.5 g/dL (31.0-37.0); MCV 103.9 fL (80.0-100.0); Macrocytosis Slight; Monocytes # (A) 1.3 k/uL (0-1.0); Monocytes % (A) 8 %; Neutrophils # (A) 12.8 k/uL (1.3-7.7); Neutrophils % (A) 75 %; Platelet Count 302 k/uL (150-450); RBC 4.17 m/uL (4.30-5.90); RDW 13.6 % (11.5-15.5); WBC 17.1 k/uL (3.8-10.6)
[2021-05-23] MEDS: SODIUM CHLORIDE 0.9% 1,000 ML IV ONE ×2 (13:20→13:29)
[2021-05-23] MEDS ORDERED: MIDAZOLAM 1 MG/ML 5 ML VIAL IV STA (13:22)
--- NOTE | 2021-05-23 13:23 | XR ---
EXAMINATION TYPE: XR chest 1V DATE OF EXAM: 05/23/2021 COMPARISON: Chest x-ray September 27, 2019. CT chest April 05, 2021 HISTORY: Dysrhythmia and chest pain. TECHNIQUE: Single AP portable frontal view of the chest is obtained. FINDINGS: Probable chronic emphysematous and basilar pulmonary fibrotic changes redemonstrated great er in the left lung base versus right. The cardiac silhouette size is stable and upper limits of nor mal. The osseous structures are intact. IMPRESSION: Chronic changes without new acute pulmonary process.
[2021-05-23] MEDS ORDERED: DEXTROSE 5% IN WATER 100 ML with AMIODARONE 150 MG IV ONE ×2 (13:30→14:05)
[2021-05-23] MEDS ORDERED: AMIODARONE 360 MG in DEXTROSE 5% IN WATER 200 ML IV ONE ×2 (14:05)
[2021-05-23] MEDS ORDERED: IPRATROPIUM-ALBUTEROL 3 ML NEB INHALATION STA ×2 (14:33→14:46)
--- NOTE | 2021-05-23 14:46 | P.CRDCN ---
History of Present Illness Consult date: 05/23/21 History of present illness: HISTORY OF PRESENT ILLNESS: This is a 65-year-old male with a past medical history significant for carotid stenosis, coronary artery disease with previous stenting of the RCA, hypertension, hyperlipidemia, and nicotine dependence. Patient follows in the office with Dr. Diaz. We have been asked to see the patient in consultation for fib with RVR. Patient examined at the bedside in the emergency room. Patient presented to the hospital for chief complaint of chest pain and shortness of breath for the last 3 days. Patient also reports having intermittent palpitations. Patient was found to be in A. fib with RVR. Patient denies a previous history of atrophic relation. The patient was started on IV Cardizem and subsequently became hypotensive. His Cardizem drip was stopped. Orders have been placed for amiodarone bolus and drip. He was started on IV heparin. The patient does appear mildly short of breath with conversation. He currently denies chest pain or pressure. EKG reveals A. fib with RVR Chest xray chronic changes without no acute pulmonary process Laboratory data: WBC 17.1. Hemoglobin 14.9. Platelet count 302. Sodium 137. Potassium 4.5. BUN 20. Creatinine 1.11. Magnesium 1.8. Troponin 0.074. Current home cardiac medications have not been updated at the time of this dictation Most recent echocardiogram obtained in the office in July 2019 revealed ejection fraction 55%. Mild tricuspid regurgitation. Mild mitral regurgitation. Cardiac catheterization history: May 2020 revealing patent stent to the RCA. Normal left coronary system. Normal left ventricular end-diastolic pressure. Medical management was recommended. REVIEW OF SYSTEMS: At the time of my exam: CONSTITUTIONAL: Denies fever or chills. HEENT: Denies blurred vision, vision changes, or eye pain. Denies hemoptysis CARDIOVASCULAR: Denies chest pain. Denies orthopnea. Denies PND. Reports palpitations RESPIRATORY: Reports shortness of breath. GASTROINTESTINAL: Denies abdominal pain. Denies nausea or vomiting. HEMATOLOGIC: Denies bleeding disorders. GENITOURINARY: Denies any blood in urine. SKIN: Denies pruitis. Denies rash. PHYSICAL EXAM: VITAL SIGNS: Reviewed. GENERAL: Well-developed in no acute distress but does appear mildly short of breath with conversation HEENT: Head is normocephalic. Pupils are equal, round. Sclerae anicteric. Mucous membranes of the mouth are moist. Neck supple. No JVD or thyromegaly LUNGS: Respirations even and unlabored. Lungs diminished to auscultation bilaterally. HEART: Tachycardic. Irregular rate and rhythm. S1 and S2 heard. ABDOMEN: Soft. Nondistended. Nontender. EXTREMITIES: Normal range of motion. No clubbing or cyanosis. Peripheral pulses intact. No lower extremity edema NEUROLOGIC: Awake and alert. Oriented x 3. ASSESSMENT: New-onset atrial fibrillation with RVR Abnormal troponin, suspect secondary to above Hypotension secondary to IV Cardizem infusion, improving since discontinuation Coronary artery disease with previous PCI to RCA Carotid disease with previous stenting of left carotid artery Hypertension Hyperlipidemia Nicotine dependence PLAN: Obtain 2-D echo to assess cardiac structure and function Continue IV heparin Resume home cardiac medications when list is reconciled with pharmacy Check TSH IV amiodarone has been ordered. Continue telemetry monitoring. Further recommendations will be made based upon patient's response to IV amiodarone Possible LORI/CV if needed Smoking cessation encouraged Nurse practitioner note has been reviewed by physician. Signing provider agrees with the documented findings, assessment, and plan of care. Past Medical History Past Medical History: Asthma, COPD, GERD/Reflux, Hyperlipidemia, Hypertension, Osteoarthritis (OA), Respiratory Disorder Additional Past Medical History / Comment(s): Severe persistent bronchial asthma, coronary artery disease, hyperlipidemia-resolved, hypertension, obesity, obstructive sleep apnea-resolved, osteoarthritis, very closely in the lower extremities, chronic constipation History of Any Multi-Drug Resistant Organisms: None Reported Past Surgical History: Appendectomy, Heart Catheterization With Stent, Hernia Repair, Orthopedic Surgery, Tonsillectomy Additional Past Surgical History / Comment(s): Hernia repair 4, tonsillectomy, appendectomy, bronchoscopy, total left knee replacement 2012, anterior and cervical spinal decompression and fusion at the level of C4-C5, C5-C6 and cardiac catheterization with stent placement, carotid stent Past Anesthesia/Blood Transfusion Reactions: No Reported Reaction Date of Last Stent Placement:: 07/18/2019 Past Psychological History: No Psychological Hx Reported Smoking Status: Former smoker Past Alcohol Use History: None Reported Past Drug Use History: None Reported - Past Family History Brother(s) Family Medical History: Cancer Additional Family Medical History / Comment(s): Brain cancer. Son(s) Family Medical History: Myocardial Infarction ([place]) Father Family Medical History: Cancer Additional Family Medical History / Comment(s): Father of Lung cancer at age 78yrs. Mother Family Medical History: Coronary Artery Disease (CAD), Myocardial Infarction ([place]) Additional Family Medical History / Comment(s): Mother at age 48yrs while having open heart surgery. Medications and Allergies Home Medications Medication Instructions Recorded Confirmed Type Levalbuterol HCl [Xopenex 1.25 mg INHALATION RT-QID PRN 03/24/14 06/05/20 History Nebulized] minoxidiL 10 mg PO HS 08/28/14 06/05/20 History Hydrocodone/Acetaminophen 1 tab PO QID 02/12/16 06/05/20 History [Hydrocodone-Acetamin 10-325 mg] Theophylline Anhydrous [Uniphyl] 200 mg PO BID 02/12/16 06/05/20 History Aspirin EC [Ecotrin Low Dose] 81 mg PO DAILY 02/05/17 06/05/20 History Ergocalciferol [Vitamin D2 50,000 unit PO MO 02/05/17 06/05/20 History (DRISDOL)] Ipratropium Nebulized [Atrovent 0.5 mg INHALATION RT-QID PRN 02/05/17 06/05/20 History Nebulized 0.2 MG/ML] Montelukast [Singulair] 10 mg PO DAILY 02/05/17 06/05/20 History predniSONE 10 mg PO DAILY 02/05/17 06/05/20 History Budesonide-Formot 160-4.5 Mcg 2 puff INHALATION BID 07/13/19 06/05/20 History [Symbicort 160-4.5 Mcg Inhaler] Levothyroxine Sodium [Synthroid] 50 mcg PO DAILY 07/13/19 06/05/20 History minoxidiL 5 mg PO QAM 07/13/19 06/05/20 History Clopidogrel Bisulfate [Plavix] 75 mg PO DAILY #90 tab 07/18/19 06/05/20 Rx Budesonide [Pulmicort] 0.5 mg INHALATION BID 11/28/19 06/05/20 History Pantoprazole Sodium [Protonix] 40 mg PO BID 11/28/19 06/05/20 History Spironolactone [Aldactone] 25 mg PO DAILY 11/28/19 06/05/20 History Albuterol Sulfate [Ventolin HFA] 1 - 2 puff INHALATION Q6H PRN 05/31/20 05/31/20 History Carvedilol [Coreg] 12.5 mg PO BID 05/31/20 06/05/20 History Valsartan/Hydrochlorothiazide 1 each PO DAILY 05/31/20 05/31/20 History [Valsartan-Hctz 320-25 mg Tab] Atorvastatin Calcium [Lipitor] 80 mg PO HS 06/05/20 06/05/20 History Allergies Allergy/AdvReac Type Severity Reaction Status Date / Time arformoterol tartrate Allergy Dyspnea Verified 05/23/21 11:59 [From Brovana] Iodinated Contrast Media Allergy Anaphylaxis Verified 05/23/21 11:59 [Iodinated Contrast Media - IV Dye] moxifloxacin [From Avelox] Allergy Dyspnea Verified 05/23/21 11:59 Penicillins Allergy Dyspnea Verified 05/23/21 11:59 Quinolones Allergy Dyspnea Verified 05/23/21 11:59 vancomycin Allergy Dyspnea Verified 05/23/21 11:59 Physical Exam Vitals: Vital Signs Temp Pulse Resp BP Pulse Ox 05/23/21 14:08 154 H 18 103/61 98 05/23/21 13:51 180 H 18 91/69 97 05/23/21 13:46 163 H 18 77/39 97 05/23/21 13:41 176 H 18 96/59 98 05/23/21 13:37 174 H 18 71/48 97 05/23/21 13:30 176 H 18 82/53 97 05/23/21 13:27 172 H 18 77/53 97 05/23/21 13:23 156 H 18 105/63 97 05/23/21 13:16 179 H 18 74/36 97 05/23/21 13:12 170 H 18 70/46 98 05/23/21 13:00 170 H 18 116/89 98 05/23/21 12:55 160 H 18 73/58 98 05/23/21 12:40 170 H 20 93/56 98 05/23/21 12:27 188 H 24 108/92 100 05/23/21 11:59 98 F 84 18 93/58 99 Intake and Output 05/22/21 05/23/21 05/23/21 22:59 06:59 14:59 Intake Total 2.792 Balance 2.792 Intake: Intake, IV Titration 2.792 Amount Diltiazem 125 mg In 2.792 Sodium Chloride 0.9% 100 ml @ 5 MG/HR 5 mls/hr IV .Q24H [facility] Rx#:[id number] Other: Weight 99.79 kg Results 05/23/21 12:25 05/23/21 12:25 Cardiac Enzymes 05/23/21 05/23/21 Range/Units 12:25 12:25 AST 41 (17-59) U/L Troponin I 0.074 H* (0.000-0.034) ng/mL Coagulation 05/23/21 Range/Units 12:25 PT 11.0 (9.0-12.0) sec APTT 23.9 (22.0-30.0) sec CBC 05/23/21 Range/Units 12:25 WBC 17.1 H (3.8-10.6) k/uL RBC 4.17 L (4.30-5.90) m/uL Hgb 14.9 (13.0-17.5) gm/dL Hct 43.4 (39.0-53.0) % Plt Count 302 (150-450) k/uL Comprehensive Metabolic Panel 05/23/21 Range/Units 12:25 Sodium 137 (137-145) mmol/L Potassium 4.5 (3.5-5.1) mmol/L Chloride 99 (98-107) mmol/L Carbon Dioxide 32 H (22-30) mmol/L BUN 20 (9-20) mg/dL Creatinine 1.11 (0.66-1.25) mg/dL Glucose 109 H (74-99) mg/dL Calcium 10.0 (8.4-10.2) mg/dL AST 41 (17-59) U/L ALT 47 (4-49) U/L Alkaline Phosphatase 64 (38-126) U/L Total Protein 6.6 (6.3-8.2) g/dL Albumin 4.3 (3.5-5.0) g/dL Current Medications Generic Name Dose Route Start Last Admin Trade Name Freq PRN Reason Stop Dose Admin Heparin Sodium/Sodium Chloride 250 mls @ 10 mls/hr 05/23/21 12:45 05/23/21 13:09 25,000 unit/ Sodium Chloride IV 10.021 units/kg/hr .Q24H [facility]OR[facility] 10 mls/hr Administration Protocol 10.021 UNITS/KG/HR Amiodarone HCl 360 mg/ 200 mls @ 33.333 mls/hr 05/23/21 14:05 05/23/21 14:28 Dextrose/Water IV 05/23/21 20:04 1 mg/min .Q6H ONE 33.333 mls/hr Administration Protocol 1 MG/MIN Amiodarone HCl 450 mg/ 250 mls @ 16.667 mls/hr 05/23/21 20:05 Dextrose/Water IV 05/24/21 14:04 .Q15H DORA Protocol 0.5 MG/MIN Intake and Output 05/22/21 05/23/21 05/23/21 22:59 06:59 14:59 Intake Total 2.792 Balance 2.792 Intake: Intake, IV Titration 2.792 Amount Diltiazem 125 mg In 2.792 Sodium Chloride 0.9% 100 ml @ 5 MG/HR 5 mls/hr IV .Q24H [facility] Rx#:[id number] Other: Weight 99.79 kg Patient Weight 05/24/21 06:59 Weight 99.79 kg 05/23/21 12:25 05/23/21 12:25
[2021-05-23] MEDS ORDERED: NALOXONE 0.4 MG/ML 1 ML VIAL IV PRN (14:51)
[2021-05-23 16:01] LABS: Glucose,Whole Blood 120 mg/dL (75-99)
[2021-05-23] MEDS ORDERED: SODIUM CHLORIDE 0.9% 1,000 ML IV ONE (16:56)
[2021-05-23] MEDS: METOPROLOL TARTRATE 25 MG TAB PO SCH (18:51)
[2021-05-23] MEDS: AMIODARONE 450 MG in DEXTROSE 5% IN WATER 250 ML IV SCH ×2 (19:38)
[2021-05-23] MEDS ORDERED: IPRATROPIUM-ALBUTEROL 3 ML NEB INHALATION SCH (20:00)
[2021-05-23] MEDS ORDERED: IPRATROPIUM 0.5 MG/2.5 ML NEBU INHALATION SCH (20:00)
[2021-05-23] MEDS ORDERED: ALBUTEROL NEBULIZED 2.5 MG/3 ML INHALATION SCH (20:00)
[2021-05-23] MEDS ORDERED: DILTIAZEM DRIP BOLUS FROM BAG 1 MG SOLN IV STA ×2 (20:15→22:27)
[2021-05-23] MEDS: IPRATROPIUM-ALBUTEROL 3 ML NEB INHALATION SCH (20:18)
[2021-05-23] MEDS: DILTIAZEM 125 MG in SODIUM CHLORIDE 0.9% 100 ML IV SCH (22:12)
[2021-05-23] MEDS: HYDROcodone/APAP 10-325MG 1 EACH TAB PO PRN (22:49)
[2021-05-23] MEDS: MELATONIN 5 MG TABLET PO SCH (22:49)
[2021-05-24] MEDS: ALBUTEROL NEBULIZED 2.5 MG/3 ML INHALATION PRN (01:25)
[2021-05-24 02:12] LABS: Basophils % (A) 0 %; Eosinophils # (A) 0.1 k/uL (0-0.7); Eosinophils % (A) 1 %; HCT 35.3 % (39.0-53.0); HGB 12.3 gm/dL (13.0-17.5); Lymphocytes % (A) 18 %; MCH 36.6 pg (25.0-35.0); MCHC 34.8 g/dL (31.0-37.0); MCV 105.4 fL (80.0-100.0); Macrocytosis Moderate; Mean Platelet Volume 8.1; Monocytes # (A) 0.8 k/uL (0-1.0); Monocytes % (A) 7 %; Neutrophils # (A) 8.1 k/uL (1.3-7.7); Neutrophils % (A) 72 %; Platelet Count 197 k/uL (150-450); RBC 3.35 m/uL (4.30-5.90); RDW 13.7 % (11.5-15.5); WBC 11.3 k/uL (3.8-10.6)
[2021-05-24 02:37] LABS: ALT 46 U/L (4-49); AST 47 U/L (17-59); African American GFR (CKD) >90 (>60 ml/min/1.73 sqM); Albumin 3.1 g/dL (3.5-5.0); Alkaline Phosphatase 58 U/L (38-126); Anion Gap 3 mmol/L; Blood Urea Nitrogen 20 mg/dL (9-20); Calcium 8.2 mg/dL (8.4-10.2); Carbon Dioxide 28 mmol/L (22-30); Chloride 106 mmol/L (98-107); Glucose 118 mg/dL (74-99); Non-African American GFR(CKD) 87 (>60 ml/min/1.73 sqM); Potassium 4.3 mmol/L (3.5-5.1); Sodium 137 mmol/L (137-145); Total Bilirubin 0.2 mg/dL (0.2-1.3); Total Protein 5.2 g/dL (6.3-8.2)
[2021-05-24] MEDS: carvediloL 12.5 MG TAB PO SCH ×2 (06:30→18:14)
[2021-05-24] MEDS: LEVOTHYROXINE 50 MCG TAB PO SCH (06:38)
--- NOTE | 2021-05-24 07:20 | P.PN ---
Subjective Progress Note Date: 05/24/21 Principal diagnosis: Cardiac arrhythmia The patient was seen this morning. He continues to be in atrial fibrillation with rapid ventricular response despite being on Cardizem drip as well as amiodarone drip. Currently he is also on heparin drip. I am going to consider proceeding with a LORI and cardioversion this morning. Clinically he is feeling better. Examination he does have bilateral expiratory wheezing. He does have chronic obstructive pulmonary disease. Objective - Vital Signs Vital signs: Vital Signs Temp 98.5 F 05/24/21 04:00 Pulse 123 H 05/24/21 07:00 Resp 9 L 05/24/21 07:00 BP 112/89 05/24/21 07:00 Pulse Ox 97 05/24/21 07:00 Intake & Output 05/23/21 05/24/21 05/24/21 18:59 06:59 18:59 Intake Total 4025.159 6581.833 20 Output Total 0 800 0 Balance 1022.792 207.833 20 Weight 102.7 kg 107 kg Intake: IV 1020 740 20 0.9 NS 20 240 20 Sodium Chloride 0.9% 1, 1000 000 ml @ 999 mls/hr IV . Q1H1M [facility] Rx#:[id number] Sodium Chloride 0.9% 500 500 ml 500 ml @ 999 mls/hr IV .Q31M [facility] Rx#:[id number] Intake, IV Titration 2.792 67.833 Amount Diltiazem 125 mg In 2.792 Sodium Chloride 0.9% 100 ml @ 5 MG/HR 5 mls/hr IV .Q24H [facility] Rx#:[id number] Heparin Sod,Pork in 0.45% 67.833 NaCl 25,000 unit In 0.45 % NaCl 1 250ml.bag @ 10. 021 UNITS/KG/HR 10 mls/hr IV .Q24H [facility] Rx#: [id number] Oral 200 Output: Urine 0 800 0 Other: # Voids 1 # Bowel Movements 1 - Constitutional General appearance: Present: no acute distress - Respiratory Respiratory: bilateral: wheezing - Cardiovascular Rhythm: irregularly irregular - Labs CBC & Chem 7: 05/24/21 02:00 05/24/21 02:00 Labs: Abnormal Lab Results - Last 24 Hours (Table) 05/23/21 05/23/21 05/23/21 Range/Units 12:25 12:25 12:25 WBC 17.1 H (3.8-10.6) k/uL RBC 4.17 L (4.30-5.90) m/uL Hgb (13.0-17.5) gm/dL Hct (39.0-53.0) % MCV 103.9 H (80.0-100.0) fL MCH 35.8 H (25.0-35.0) pg Neutrophils # 12.8 H (1.3-7.7) k/uL Monocytes # 1.3 H (0-1.0) k/uL APTT (22.0-30.0) sec Carbon Dioxide 32 H (22-30) mmol/L Glucose 109 H (74-99) mg/dL POC Glucose (mg/dL) (75-99) mg/dL Calcium (8.4-10.2) mg/dL Troponin I 0.074 H* (0.000-0.034) ng/mL Total Protein (6.3-8.2) g/dL Albumin (3.5-5.0) g/dL 05/23/21 05/23/21 05/24/21 Range/Units 15:59 19:21 01:38 WBC (3.8-10.6) k/uL RBC (4.30-5.90) m/uL Hgb (13.0-17.5) gm/dL Hct (39.0-53.0) % MCV (80.0-100.0) fL MCH (25.0-35.0) pg Neutrophils # (1.3-7.7) k/uL Monocytes # (0-1.0) k/uL APTT 82.1 H 58.9 H (22.0-30.0) sec Carbon Dioxide (22-30) mmol/L Glucose (74-99) mg/dL POC Glucose (mg/dL) 120 H (75-99) mg/dL Calcium (8.4-10.2) mg/dL Troponin I (0.000-0.034) ng/mL Total Protein (6.3-8.2) g/dL Albumin (3.5-5.0) g/dL 05/24/21 05/24/21 Range/Units 02:00 02:00 WBC 11.3 H (3.8-10.6) k/uL RBC 3.35 L (4.30-5.90) m/uL Hgb 12.3 L (13.0-17.5) gm/dL Hct 35.3 L (39.0-53.0) % MCV 105.4 H (80.0-100.0) fL MCH 36.6 H (25.0-35.0) pg Neutrophils # 8.1 H (1.3-7.7) k/uL Monocytes # (0-1.0) k/uL APTT (22.0-30.0) sec Carbon Dioxide (22-30) mmol/L Glucose 118 H (74-99) mg/dL POC Glucose (mg/dL) (75-99) mg/dL Calcium 8.2 L (8.4-10.2) mg/dL Troponin I (0.000-0.034) ng/mL Total Protein 5.2 L (6.3-8.2) g/dL Albumin 3.1 L (3.5-5.0) g/dL Assessment and Plan Assessment: Assessment #1 paroxysmal atrial fibrillation #2 coronary artery disease #3 chronic obstructive pulmonary disease Plan #1 proceed with a LORI and cardioversion #2 continue the current medical regimen #3 continue heparin IV #4 severe oral anticoagulation #5 rule out acute coronary event #6 obtain an echocardiogram was Doppler
[2021-05-24] MEDS: IPRATROPIUM-ALBUTEROL 3 ML NEB INHALATION SCH ×4 (07:28→19:23)
[2021-05-24] MEDS ORDERED: LEVALBUTEROL HCL 1.25 MG/3 ML INHALATION SCH (08:00)
[2021-05-24] MEDS ORDERED: SYMBICORT 80-4.5 MCG INHALER INHALATION SCH (08:00)
[2021-05-24] MEDS ORDERED: IPRATROPIUM 0.5 MG/2.5 ML NEBU INHALATION SCH (08:00)
--- NOTE | 2021-05-24 08:45 | XR ---
EXAMINATION TYPE: XR chest 1V portable DATE OF EXAM: 05/24/2021 COMPARISON: Chest x-ray 05/23/[address] 04/05/2021 HISTORY: COPD TECHNIQUE: Frontal view of the chest is obtained and 2 images. FINDINGS: There is no pleural effusion or pneumothorax seen. Some areas of probable scarring along the heart borders again noted. The cardiac silhouette size is within normal limits, stable. Promine nt lung volume and be seen with underlying COPD. There are prominent epicardial fat pads. The osseous structures are intact, postop change noted to the cervical spine, there are overlying artifacts. IMPRESSION: No acute process.
[2021-05-24] MEDS ORDERED: LIDOCAINE 1% INJ 10MG/ML (20 ML MDV) ONE (09:26)
[2021-05-24] MEDS ORDERED: PROPOFOL 10 MG/ML 20 ML VIAL IV ONE (09:26)
--- NOTE | 2021-05-24 09:29 | P.HPIM ---
History of Present Illness H&P Date: 05/23/21 Chief Complaint: Shortness of breath A. fib with RVR This is a 65-year-old male patient who presented to the hospital with complaints of ongoing shortness of breath and diaphoresis along with chest pain over the past 3 days. Patient reports that he felt symptoms started Thursday after cutting the grass in which he became very short of breath and diaphoretic with any activity. Patient also past medical history of asthma, COPD, hyperlipidemia, hypertension, osteoarthritis and coronary artery disease with previous cardiac stent. Upon arrival patient was found to be in A. fib with RVR. At that time patient was started on Cardizem in the ER but became hypotensive. Cardizem drip was DC'd. Cardiology services were consulted and patient was started on amiodarone drip along with heparin drip. This does appear to be new onset atrial fibrillation. Patient also having elevated troponin level. Initial chest x-ray completed showing chronic changes without acute new pulmonary process. Patient has been admitted to the intensive care unit. Cardiology service is consulted. Critical care service is consulted. At this time patient remains short of breath. Heart rate elevated 130s to 140s. Patient denies nausea vomiting or diarrhea. Patient denies any urinary burning or frequency Review of Systems please refer to HPI otherwise unremarkable Past Medical History Past Medical History: Atrial Fibrillation, Asthma, COPD, GERD/Reflux, Hyperlipidemia, Hypertension, Osteoarthritis (OA), Respiratory Disorder Additional Past Medical History / Comment(s): Severe persistent bronchial asthma, coronary artery disease, hyperlipidemia-resolved, hypertension, obesity, obstructive sleep apnea-resolved, osteoarthritis, very closely in the lower extremities, chronic constipation History of Any Multi-Drug Resistant Organisms: None Reported Past Surgical History: Appendectomy, Heart Catheterization With Stent, Hernia Repair, Orthopedic Surgery, Tonsillectomy Additional Past Surgical History / Comment(s): Hernia repair 4, tonsillectomy, appendectomy, bronchoscopy, total left knee replacement 2012, anterior and cervical spinal decompression and fusion at the level of C4-C5, C5-C6 and cardiac catheterization with stent placement, carotid stent Past Anesthesia/Blood Transfusion Reactions: No Reported Reaction Date of Last Stent Placement:: 07/18/2019 Past Psychological History: No Psychological Hx Reported Additional Psychological History / Comment(s): Pt lives with in home. He is on disability due to breathing problems. Pt is independent. Pt has a knee brace he uses on his R leg and if he goes out he has another one he places on his L leg. Pt drives a car. Smoking Status: Former smoker Past Alcohol Use History: None Reported Additional Past Alcohol Use History / Comment(s): QUIT SMOKING ABOUT 1 YEAR AGO. SMOKED 1-2 PPD FOR MOST OF LIFE Past Drug Use History: None Reported - Past Family History Brother(s) Family Medical History: Cancer Additional Family Medical History / Comment(s): Brain cancer. Son(s) Family Medical History: Myocardial Infarction (NH) Father Family Medical History: Cancer Additional Family Medical History / Comment(s): Father of Lung cancer at age 78yrs. Mother Family Medical History: Coronary Artery Disease (CAD), Myocardial Infarction (NH) Additional Family Medical History / Comment(s): Mother at age 48yrs while h aving open heart surgery. Medications and Allergies Home Medications Medication Instructions Recorded Confirmed Type Levalbuterol HCl [Xopenex 1.25 mg INHALATION RT-QID 03/24/14 05/23/21 History Nebulized] minoxidiL 10 mg PO HS 08/28/14 05/23/21 History Hydrocodone/Acetaminophen 1 tab PO Q8H PRN 02/12/16 05/23/21 History [Hydrocodone-Acetamin 10-325 mg] Theophylline Anhydrous [Uniphyl] 200 mg PO BID 02/12/16 05/23/21 History Aspirin EC [Ecotrin Low Dose] 81 mg PO DAILY 02/05/17 05/23/21 History Ipratropium Nebulized [Atrovent 0.5 mg INHALATION RT-QID 02/05/17 05/23/21 History Nebulized 0.2 MG/ML] Montelukast [Singulair] 10 mg PO DAILY 02/05/17 05/23/21 History predniSONE 10 mg PO DAILY 02/05/17 05/23/21 History Levothyroxine Sodium [Synthroid] 50 mcg PO DAILY 07/13/19 05/23/21 History minoxidiL 5 mg PO DAILY 07/13/19 05/23/21 History Pantoprazole Sodium [Protonix] 40 mg PO BID 11/28/19 05/23/21 History Spironolactone [Aldactone] 25 mg PO DAILY 11/28/19 05/23/21 History Albuterol Sulfate [Ventolin HFA] 2 puff INHALATION RT-QID PRN 05/31/20 05/23/21 History Carvedilol [Coreg] 12.5 mg PO BID 05/31/20 05/23/21 History Valsartan/Hydrochlorothiazide 1 tab PO DAILY 05/31/20 05/23/21 History [Valsartan-Hctz 320-25 mg Tab] Atorvastatin Calcium [Lipitor] 80 mg PO HS 06/05/20 05/23/21 History Fluticasone/Umeclidin/Vilanter 1 puff INHALATION RT-DAILY 05/23/21 05/23/21 History [Trelegy Ellipta 200-62.5-25] Allergies Allergy/AdvReac Type Severity Reaction Status Date / Time arformoterol tartrate Allergy Dyspnea Verified 05/23/21 11:59 [From Brovana] Iodinated Contrast Media Allergy Anaphylaxis Verified 05/23/21 11:59 [Iodinated Contrast Media - IV Dye] moxifloxacin [From Avelox] Allergy Dyspnea Verified 05/23/21 11:59 Penicillins Allergy Dyspnea Verified 05/23/21 11:59 Quinolones Allergy Dyspnea Verified 05/23/21 11:59 vancomycin Allergy Dyspnea Verified 05/23/21 11:59 Physical Exam Vitals: Vital Signs Temp Pulse Resp BP Pulse Ox 05/23/21 22:00 152 H 20 95/79 96 05/23/21 21:30 165 H 18 83/64 05/23/21 21:00 151 H 22 81/50 94 L 05/23/21 20:30 168 H 12 103/45 05/23/21 20:27 138 H 05/23/21 20:19 144 H 05/23/21 20:00 98.1 F 156 H 21 90/68 97 05/23/21 19:30 141 H 14 123/64 05/23/21 19:00 160 H 18 107/66 95 05/23/21 18:30 155 H 24 91/54 94 L 05/23/21 18:00 142 H 22 119/108 96 05/23/21 17:45 151 H 18 81/64 95 05/23/21 17:30 165 H 18 99/59 95 05/23/21 17:15 152 H 19 86/70 96 05/23/21 17:00 161 H 16 75/43 98 09/02/21 16:45 161 H 18 66/56 97 05/23/21 16:30 160 H 14 96/76 91 L 05/23/21 16:15 168 H 15 74/60 95 05/23/21 16:00 97.9 F 144 H 19 98 05/23/21 15:36 154 H 18 93/83 100 05/23/21 14:57 155 H 18 99/45 100 05/23/21 14:44 140 H 18 81/46 99 05/23/21 14:08 154 H 18 103/61 98 05/23/21 13:51 180 H 18 91/69 97 05/23/21 13:46 163 H 18 77/39 97 05/23/21 13:41 176 H 18 96/59 98 05/23/21 13:37 174 H 18 71/48 97 05/23/21 13:30 176 H 18 82/53 97 05/23/21 13:27 172 H 18 77/53 97 05/23/21 13:23 156 H 18 105/63 97 05/23/21 13:16 179 H 18 74/36 97 05/23/21 13:12 170 H 18 70/46 98 05/23/21 13:00 170 H 18 116/89 98 05/23/21 12:55 160 H 18 73/58 98 05/23/21 12:40 170 H 20 93/56 98 05/23/21 12:27 188 H 24 108/92 100 05/23/21 11:59 98 F 84 18 93/58 99 Intake and Output 05/23/21 05/23/21 05/23/21 06:59 14:59 22:59 Intake Total 2.792 1367.833 Output Total 350 Balance 2.792 1017.833 Intake: IV 1100 0.9 NS 100 Sodium Chloride 0.9% 1, 1000 000 ml @ 999 mls/hr IV . Q1H1M [facility] Rx#:[id number] Intake, IV Titration 2.792 67.833 Amount Diltiazem 125 mg In 2.792 Sodium Chloride 0.9% 100 ml @ 5 MG/HR 5 mls/hr IV .Q24H [facility] Rx#:[id number] Heparin Sod,Pork in 0.45% 67.833 NaCl 25,000 unit In 0.45 % NaCl 1 250ml.bag @ 10. 021 UNITS/KG/HR 10 mls/hr IV .Q24H [facility] Rx#: [id number] Oral 200 Output: Urine 350 Other: Weight 99.79 kg 102.7 kg Head normocephalic Neck supple Lungs clear to auscultation bilaterally no wheezing or crackles Heart irregular heart rate. Atrial fibrillation. Heart rate 130s to 140s irregular Abdomen is soft nontender nondistended positive bowel sounds no hepatosplenomegaly Extremities no edema Neuro alert and orientated to 3 Results CBC & Chem 7: 05/24/21 02:00 05/24/21 02:00 Labs: Abnormal Lab Results - Last 24 Hours (Table) 05/23/21 05/23/21 05/23/21 Range/Units 12:25 12:25 12:25 WBC 17.1 H (3.8-10.6) k/uL RBC 4.17 L (4.30-5.90) m/uL MCV 103.9 H (80.0-100.0) fL MCH 35.8 H (25.0-35.0) pg Neutrophils # 12.8 H (1.3-7.7) k/uL Monocytes # 1.3 H (0-1.0) k/uL APTT (22.0-30.0) sec Carbon Dioxide 32 H (22-30) mmol/L Glucose 109 H (74-99) mg/dL POC Glucose (mg/dL) (75-99) mg/dL Troponin I 0.074 H* (0.000-0.034) ng/mL 05/23/21 05/23/21 Range/Units 15:59 19:21 WBC (3.8-10.6) k/uL RBC (4.30-5.90) m/uL MCV (80.0-100.0) fL MCH (25.0-35.0) pg Neutrophils # (1.3-7.7) k/uL Monocytes # (0-1.0) k/uL APTT 82.1 H (22.0-30.0) sec Carbon Dioxide (22-30) mmol/L Glucose (74-99) mg/dL POC Glucose (mg/dL) 120 H (75-99) mg/dL Troponin I (0.000-0.034) ng/mL Thrombosis Risk Factor Assmnt - Choose All That Apply Other Risk Factors: Yes Each Risk Factor Represents 2 Points: Age 61-74 years Thrombosis Risk Factor Assessment Total Risk Factor Score: 2 Thrombosis Risk Factor Assessment Level: Low Risk Assessment and Plan Assessment: 1. New onset atrial fibrillation with rapid ventricular response 2. Abnormal troponin level 3. History of COPD. Patient maintained on albuterol breathing treatments. Critical care pulmonary service is following 3. History of asthma 4. History of coronary artery disease with stents 5. History of GERD 6. History of hyperlipidemia 7. History of essential hypertension DVT prophylaxis heparin drip. GI prophylaxis Protonix Patient currently admitted to the intensive care unit Cardiology and critical care service is following Patient currently maintained on heparin drip and amiodarone drip Possible plans for cardioversion and LORI Time with Patient: Greater than 30 (Greater than 60% of the total time spent in counseling and coordination of care)
--- NOTE | 2021-05-24 09:30 | P.PN ---
Subjective Progress Note Date: 05/24/21 This is a 65-year-old male patient who presented to the hospital with complaints of ongoing shortness of breath and diaphoresis along with chest pain over the past 3 days. Patient reports that he felt symptoms started Thursday after cutting the grass in which he became very short of breath and diaphoretic with any activity. Patient also past medical history of asthma, COPD, hyperlipidemia, hypertension, osteoarthritis and coronary artery disease with previous cardiac stent. Upon arrival patient was found to be in A. fib with RVR. At that time patient was started on Cardizem in the ER but became hypotensive. Cardizem drip was DC'd. Cardiology services were consulted and patient was started on a miodarone drip along with heparin drip. This does appear to be new onset atrial fibrillation. Patient also having elevated troponin level. Initial chest x-ray completed showing chronic changes without acute new pulmonary process. Patient has been admitted to the intensive care unit. Cardiology service is consulted. Critical care service is consulted. At this time patient remains short of br eath. Heart rate elevated 130s to 140s. Patient denies nausea vomiting or diarrhea. Patient denies any urinary burning or frequency On 05/24/2021 patient alert and oriented 3. Heart rate remains elevated despite amiodarone drip. Plans per nursing staff for cardioversion today at 9:30 per cardiology with LORI. Patient remains short of breath with activity. Repeat chest x-ray ordered per critical care services. Patient denies nausea vomiting or diarrhea. Patient denies any urinary burning or frequency Objective - Vital Signs Vital signs: Vital Signs Temp 98.5 F 05/24/21 04:00 Pulse 144 H 05/24/21 08:30 Resp 19 05/24/21 08:30 BP 86/68 05/24/21 08:30 Pulse Ox 94 L 05/24/21 08:30 Intake & Output 05/23/21 05/24/21 05/24/21 18:59 06:59 18:59 Intake Total 7154.545 2806.833 60 Output Total 0 800 200 Balance 1022.792 207.833 -140 Weight 102.7 kg 107 kg Intake: IV 1020 740 60 0.9 NS 20 240 60 Sodium Chloride 0.9% 1, 1000 000 ml @ 999 mls/hr IV . Q1H1M [facility] Rx#:[id number] Sodium Chloride 0.9% 500 500 ml 500 ml @ 999 mls/hr IV .Q31M [facility] Rx#:[id number] Intake, IV Titration 2.792 67.833 Amount Diltiazem 125 mg In 2.792 Sodium Chloride 0.9% 100 ml @ 5 MG/HR 5 mls/hr IV .Q24H [facility] Rx#:[id number] Heparin Sod,Pork in 0.45% 67.833 NaCl 25,000 unit In 0.45 % NaCl 1 250ml.bag @ 10. 021 UNITS/KG/HR 10 mls/hr IV .Q24H [facility] Rx#: [id number] Oral 200 Output: Urine 0 800 200 Other: # Voids 1 1 # Bowel Movements 1 - Exam Head normocephalic Neck supple Lungs clear to auscultation bilaterally no wheezing or crackles Heart irregular heart rate. Atrial fibrillation. Heart rate 130s to 140s irregular Abdomen is soft nontender nondistended positive bowel sounds no hepatosplen omegaly Extremities no edema Neuro alert and orientated to 3 - Labs CBC & Chem 7: 05/24/21 02:00 05/24/21 02:00 Labs: Abnormal Lab Results - Last 24 Hours (Table) 05/23/21 05/23/21 05/23/21 Range/Units 12:25 12:25 12:25 WBC 17.1 H (3.8-10.6) k/uL RBC 4.17 L (4.30-5.90) m/uL Hgb (13.0-17.5) gm/dL Hct (39.0-53.0) % MCV 103.9 H (80.0-100.0) fL MCH 35.8 H (25.0-35.0) pg Neutrophils # 12.8 H (1.3-7.7) k/uL Monocytes # 1.3 H (0-1.0) k/uL APTT (22.0-30.0) sec Carbon Dioxide 32 H (22-30) mmol/L Glucose 109 H (74-99) mg/dL POC Glucose (mg/dL) (75-99) mg/dL Calcium (8.4-10.2) mg/dL Troponin I 0.074 H* (0.000-0.034) ng/mL Total Protein (6.3-8.2) g/dL Albumin (3.5-5.0) g/dL 05/23/21 05/23/21 05/24/21 Range/Units 15:59 19:21 01:38 WBC (3.8-10.6) k/uL RBC (4.30-5.90) m/uL Hgb (13.0-17.5) gm/dL Hct (39.0-53.0) % MCV (80.0-100.0) fL MCH (25.0-35.0) pg Neutrophils # (1.3-7.7) k/uL Monocytes # (0-1.0) k/uL APTT 82.1 H 58.9 H (22.0-30.0) sec Carbon Dioxide (22-30) mmol/L Glucose (74-99) mg/dL POC Glucose (mg/dL) 120 H (75-99) mg/dL Calcium (8.4-10.2) mg/dL Troponin I (0.000-0.034) ng/mL Total Protein (6.3-8.2) g/dL Albumin (3.5-5.0) g/dL 05/24/21 05/24/21 05/24/21 Range/Units 02:00 02:00 07:03 WBC 11.3 H (3.8-10.6) k/uL RBC 3.35 L (4.30-5.90) m/uL Hgb 12.3 L (13.0-17.5) gm/dL Hct 35.3 L (39.0-53.0) % MCV 105.4 H (80.0-100.0) fL MCH 36.6 H (25.0-35.0) pg Neutrophils # 8.1 H (1.3-7.7) k/uL Monocytes # (0-1.0) k/uL APTT (22.0-30.0) sec Carbon Dioxide (22-30) mmol/L Glucose 118 H (74-99) mg/dL POC Glucose (mg/dL) (75-99) mg/dL Calcium 8.2 L (8.4-10.2) mg/dL Troponin I 0.045 H* (0.000-0.034) ng/mL Total Protein 5.2 L (6.3-8.2) g/dL Albumin 3.1 L (3.5-5.0) g/dL Assessment and Plan Assessment: 1. New onset atrial fibrillation with rapid ventricular response 2. Abnormal troponin level 3. History of COPD. Patient maintained on albuterol breathing treatments. Critical care pulmonary service is following 3. History of asthma 4. History of coronary artery disease with stents 5. History of GERD 6. History of hyperlipidemia 7. History of essential hypertension DVT prophylaxis heparin drip. GI prophylaxis Protonix Patient currently admitted to the intensive care unit Cardiology and critical care service is following Patient currently maintained on heparin drip and amiodarone drip Plans for LORI cardioversion today 05/24/2021
[2021-05-24] MEDS: BUDESONIDE 1 MG/2 ML NEBU INHALATION SCH ×2 (10:37→19:23)
--- NOTE | 2021-05-24 11:17 | P.CNPUL ---
History of Present Illness Consult date: 05/24/21 Requesting physician: Chris Ervin Reason for consult: dyspnea, other (Critical care management) Chief complaint: Chest pain, shortness of breath on exertion History of present illness: This is a very pleasant 65-year-old gentleman with a known history of coronary artery disease with previous stent placement, carotid artery disease with previous stent placement, hypothyroidism, former smoker, hyperlipidemia, hypertension, chronic asthmatic bronchitis. He presented to the emergency room yesterday with several days of not feeling quite right. He did develop some intermittent chest pain as well. Some palpitations and dizziness. He was found to be in atrial fibrillation with a rapid ventricular response. He was initiated on a heparin drip per weight-based protocol. Initiated on amiodarone currently on 0.5 mg/m. Cardizem drip at 10 mg per hour. 0.9 normal saline at 20 mL per hour. He is seen today in consultation in the intensive care unit. He is currently awake and alert in no acute distress. Still in atrial fibrillation with a rapid ventricular response. He is maintaining O2 saturations in the 90s on 2 L/m per nasal cannula. Chest x-ray revealed evidence of chronic changes but no acute pulmonary process. White count 11.3. Hemoglobin 12.3. Sodium 137. Potassium 4.3. Creatinine 0.2. Troponin 0.074. 0.045. TSH 2.89. AST 47, ALT 46. Plan is for possible LORI and cardioversion today. Review of Systems REVIEW OF SYSTEMS: CONSTITUTIONAL: Generalized weakness, fatigue. Denies any recent significant weight loss or weight gain. EYES: Denies change in vision. EARS, NOSE, MOUTH, THROAT: Denies headaches, denies sore throat. CARDIOVASCULAR: Positive for chest pain, palpitations no syncopal episodes. RESPIRATORY: Positive for shortness of breath on exertion, no cough, congestion or hemoptysis. GASTROINTESTINAL: Denies change in appetite, denies abdominal pain GENITOURINARY: Denies hematuria, denies infections. MUSKULOSKELETAL: Denies pain, denies swelling. INTEGUMENTARY: Denies rash, denies eczema. NEUROLOGICAL: Denies recent memory loss, no recent seizure activity. PSYCHIATRIC: Denies anxiety, denies depression. HEMATOLOGIC/LYMPHATIC: Denies anemia, denies enlarged lymph nodes. Past Medical History Past Medical History: Atrial Fibrillation, Asthma, COPD, GERD/Reflux, Hyperlipidemia, Hypertension, Osteoarthritis (OA), Respiratory Disorder Additional Past Medical History / Comment(s): Severe persistent bronchial asthma, coronary artery disease, hyperlipidemia-resolved, hypertension, obesity, obstructive sleep apnea-resolved, osteoarthritis, very closely in the lower extremities, chronic constipation History of Any Multi-Drug Resistant Organisms: None Reported Past Surgical History: Appendectomy, Heart Catheterization With Stent, Hernia Repair, Orthopedic Surgery, Tonsillectomy Additional Past Surgical History / Comment(s): Hernia repair 4, tonsillectomy, appendectomy, bronchoscopy, total left knee replacement 2012, anterior and cervical spinal decompression and fusion at the level of C4-C5, C5-C6 and cardiac catheterization with stent placement, carotid stent Past Anesthesia/Blood Transfusion Reactions: No Reported Reaction Date of Last Stent Placement:: 07/18/2019 Past Psychological History: No Psychological Hx Reported Additional Psychological History / Comment(s): Pt lives with in home. He is on disability due to breathing problems. Pt is independent. Pt has a knee brace he uses on his R leg and if he goes out he has another one he places on his L leg. Pt drives a car. Smoking Status: Former smoker Past Alcohol Use History: None Reported Additional Past Alcohol Use History / Comment(s): QUIT SMOKING ABOUT 1 YEAR AGO. SMOKED 1-2 PPD FOR MOST OF LIFE Past Drug Use History: None Reported - Past Family History Brother(s) Family Medical History: Cancer Additional Family Medical History / Comment(s): Brain cancer. Son(s) Family Medical History: Myocardial Infarction ([place]) Father Family Medical History: Cancer Additional Family Medical History / Comment(s): Father of Lung cancer at age 78yrs. Mother Family Medical History: Coronary Artery Disease (CAD), Myocardial Infarction ([place]) Additional Family Medical History / Comment(s): Mother at age 48yrs while having open heart surgery. Medications and Allergies Home Medications Medication Instructions Recorded Confirmed Type Levalbuterol HCl [Xopenex 1.25 mg INHALATION RT-QID 03/24/14 05/23/21 History Nebulized] minoxidiL 10 mg PO HS 08/28/14 05/23/21 History Hydrocodone/Acetaminophen 1 tab PO Q8H PRN 02/12/16 05/23/21 History [Hydrocodone-Acetamin 10-325 mg] Theophylline Anhydrous [Uniphyl] 200 mg PO BID 02/12/16 05/23/21 History Aspirin EC [Ecotrin Low Dose] 81 mg PO DAILY 02/05/17 05/23/21 History Ipratropium Nebulized [Atrovent 0.5 mg INHALATION RT-QID 02/05/17 05/23/21 Hist ory Nebulized 0.2 MG/ML] Montelukast [Singulair] 10 mg PO DAILY 02/05/17 05/23/21 History predniSONE 10 mg PO DAILY 02/05/17 05/23/21 History Levothyroxine Sodium [Synthroid] 50 mcg PO DAILY 07/13/19 05/23/21 History minoxidiL 5 mg PO DAILY 07/13/19 05/23/21 History Pantoprazole Sodium [Protonix] 40 mg PO BID 11/28/19 05/23/21 History Spironolactone [Aldactone] 25 mg PO DAILY 11/28/19 05/23/21 History Albuterol Sulfate [Ventolin HFA] 2 puff INHALATION RT-QID PRN 05/31/20 05/23/21 History Carvedilol [Coreg] 12.5 mg PO BID 05/31/20 05/23/21 History Valsartan/Hydrochlorothiazide 1 tab PO DAILY 05/31/20 05/23/21 History [Valsartan-Hctz 320-25 mg Tab] Atorvastatin Calcium [Lipitor] 80 mg PO HS 06/05/20 05/23/21 History Fluticasone/Umeclidin/Vilanter 1 puff INHALATION RT-DAILY 05/23/21 05/23/21 History [Trelegy Ellipta 200-62.5-25] Allergies Allergy/AdvReac Type Severity Reaction Status Date / Time arformoterol tartrate Allergy Dyspnea Verified 05/23/21 11:59 [From Brovana] Iodinated Contrast Media Allergy Anaphylaxis Verified 05/23/21 11:59 [Iodinated Contrast Media - IV Dye] moxifloxacin [From Avelox] Allergy Dyspnea Verified 05/23/21 11:59 Penicillins Allergy Dyspnea Verified 05/23/21 11:59 Quinolones Allergy Dyspnea Verified 05/23/21 11:59 vancomycin Allergy Dyspnea Verified 05/23/21 11:59 Physical Exam Vitals: Vital Signs Temp Pulse Resp BP Pulse Ox 05/24/21 08:30 144 H 19 86/68 94 L 05/24/21 08:00 156 H 15 102/90 95 05/24/21 07:41 138 H 05/24/21 07:30 140 H 14 95/67 92 L 05/24/21 07:29 126 H 96 05/24/21 07:00 123 H 9 L 112/89 97 05/24/21 06:30 158 H 15 108/73 96 05/24/21 06:00 140 H 17 96/67 94 L 05/24/21 05:30 135 H 7 L 87/69 97 05/24/21 05:00 151 H 9 L 93/62 95 05/24/21 04:30 138 H 10 L 90/75 96 05/24/21 04:00 98.5 F 134 H 10 L 79/63 95 05/24/21 03:30 128 H 18 84/62 94 L 05/24/21 03:00 137 H 15 79/54 96 05/24/21 02:30 144 H 10 L 102/89 94 L 05/24/21 02:00 147 H 16 94/62 95 05/24/21 01:35 130 H 05/24/21 01:30 152 H 11 L 114/83 97 05/24/21 01:26 134 H 05/24/21 01:00 135 H 16 94/70 94 L 05/24/21 00:30 168 H 9 L 105/69 94 L 05/24/21 00:00 97.8 F 147 H 21 100/65 94 L 05/23/21 23:30 137 H 19 109/94 94 L 05/23/21 23:12 151 H 17 90/51 95 05/23/21 23:00 142 H 18 120/83 96 05/23/21 22:30 147 H 17 112/90 96 05/23/21 22:00 152 H 20 95/79 96 05/23/21 21:30 165 H 18 83/64 05/23/21 21:00 151 H 22 81/50 94 L 05/23/21 20:30 168 H 12 103/45 05/23/21 20:27 138 H 05/23/21 20:19 144 H 05/23/21 20:00 98.1 F 156 H 21 90/68 97 05/23/21 19:30 141 H 14 123/64 05/23/21 19:00 160 H 18 107/66 95 05/23/21 18:30 155 H 24 91/54 94 L 05/23/21 18:00 142 H 22 119/108 96 05/23/21 17:45 151 H 18 81/64 95 05/23/21 17:30 165 H 18 99/59 95 05/23/21 17:15 152 H 19 86/70 96 05/23/21 17:00 161 H 16 75/43 98 05/23/21 16:45 161 H 18 66/56 97 05/23/21 16:30 160 H 14 96/76 91 L 05/23/21 16:15 168 H 15 74/60 95 05/23/21 16:00 97.9 F 144 H 19 98 05/23/21 15:36 154 H 18 93/83 100 05/23/21 14:57 155 H 18 99/45 100 05/23/21 14:44 140 H 18 81/46 99 05/23/21 14:08 154 H 18 103/61 98 05/23/21 13:51 180 H 18 91/69 97 05/23/21 13:46 163 H 18 77/39 97 05/23/21 13:41 176 H 18 96/59 98 05/23/21 13:37 174 H 18 71/48 97 05/23/21 13:30 176 H 18 82/53 97 05/23/21 13:27 172 H 18 77/53 97 05/23/21 13:23 156 H 18 105/63 97 05/23/21 13:16 179 H 18 74/36 97 05/23/21 13:12 170 H 18 70/46 98 05/23/21 13:00 170 H 18 116/89 98 05/23/21 12:55 160 H 18 73/58 98 05/23/21 12:40 170 H 20 93/56 98 05/23/21 12:27 188 H 24 108/92 100 05/23/21 11:59 98 F 84 18 93/58 99 Intake and Output 05/23/21 05/24/21 05/24/21 22:59 06:59 14:59 Intake Total 1367.833 660 60 Output Total 350 450 200 Balance 1017.833 210 -140 Intake: IV 1100 660 60 0.9 NS 100 160 60 Sodium Chloride 0.9% 1, 1000 000 ml @ 999 mls/hr IV . Q1H1M ONE Rx#:[id number] Sodium Chloride 0.9% 500 500 ml 500 ml @ 999 mls/hr IV .Q31M ONE Rx#:[id number] Intake, IV Titration 67.833 Amount Heparin Sod,Pork in 0.45% 67.833 NaCl 25,000 unit In 0.45 % NaCl 1 250ml.bag @ 10. 021 UNITS/KG/HR 10 mls/hr IV .Q24H [facility] Rx#: [id number] Oral 200 Output: Urine 350 450 200 Other: # Voids 1 1 # Bowel Movements 1 Weight 102.7 kg 107 kg GENERAL EXAM: Alert, very pleasant 65-year-old gentleman, on 2 L nasal cannula, comfortable in no apparent distress. HEAD: Normocephalic. EYES: Normal reaction of pupils, equal size. NOSE: Clear with pink turbinates. THROAT: No erythema or exudates. NECK: No masses, no JVD. CHEST: No chest wall deformity. LUNGS: Equal air entry with no crackles, wheeze, rhonchi or dullness. CVS: S1 and S2 normal with no audible murmur, tachycardic, irregular rhythm. ABDOMEN: No hepatosplenomegaly, normal bowel sounds, no guarding or rigidity. SPINE: No scoliosis or deformity SKIN: No rashes CENTRAL NERVOUS SYSTEM: No focal deficits, tone is normal in all 4 extremities. EXTREMITIES: There is no peripheral edema. No clubbing, no cyanosis. Peripheral pulses are intact. Results - Laboratory Findings CBC and BMP: 05/24/21 02:00 05/24/21 02:00 PT/INR, D-dimer PT 11.0 sec (9.0-12.0) 05/23/21 12:25 INR 1.0 (<1.2) 05/23/21 12:25 Abnormal lab findings: Abnormal Labs 05/23/21 05/23/21 05/23/21 12:25 12:25 12:25 WBC 17.1 H RBC 4.17 L Hgb Hct MCV 103.9 H MCH 35.8 H Neutrophils # 12.8 H Monocytes # 1.3 H APTT Carbon Dioxide 32 H Glucose 109 H POC Glucose (mg/dL) Calcium Troponin I 0.074 H* Total Protein Albumin 05/23/21 05/23/21 05/24/21 15:59 19:21 01:38 WBC RBC Hgb Hct MCV MCH Neutrophils # Monocytes # APTT 82.1 H 58.9 H Carbon Dioxide Glucose POC Glucose (mg/dL) 120 H Calcium Troponin I Total Protein Albumin 05/24/21 05/24/21 05/24/21 02:00 02:00 07:03 WBC 11.3 H RBC 3.35 L Hgb 12.3 L Hct 35.3 L MCV 105.4 H MCH 36.6 H Neutrophils # 8.1 H Monocytes # APTT Carbon Dioxide Glucose 118 H POC Glucose (mg/dL) Calcium 8.2 L Troponin I 0.045 H* Total Protein 5.2 L Albumin 3.1 L - Diagnostic Findings Chest x-ray: image reviewed Assessment and Plan Assessment: 1 New-onset atrial fibrillation with rapid ventricular response. Currently on a heparin drip, Cardizem drip, amiodarone drip 2 Troponin leak secondary to above 3 History of coronary artery disease with previous stent placement 4 History of carotid artery disease with previous stent placement 5 Chronic severe persistent bronchial asthma 6 Former smoker 7 Hypothyroidism 8 Hypertension 9 Hyperlipidemia Plan: The patient was seen and evaluated by Dr. Gary Chest x-ray, EKG, labs reviewed We will add DuoNeb inhalations, Pulmicort inhalations Continue his maintenance prednisone Plan as her LORI/cardioversion today We will continue to follow and make further recommendations based on his clinical status I, the cosigning physician, performed a history & physical examination of the patient. Lungs sounds are clear, diminished. Maintaining good O2 saturations in the 90s on 2 L/m per nasal cannula. I discussed the assessment and plan of care with my nurse practitioner, Joya Muniz. I attest to the above consultation as dictated by her. Time with Patient: Greater than 30
--- NOTE | 2021-05-24 11:33 | ECHOT ---
TRANSESOPHAGEAL ECHOCARDIOGRAM DATE OF SERVICE: May 24, 2021. INDICATION: Rule out left atrial appendage thrombus. COMPLICATION: None. LEVEL OF SEDATION: The procedure was performed using propofol with X RAY CONSULTANT in the room. PROCEDURE DESCRIPTION: The procedure was performed at bedside in the intensive care unit. After starting sedation with propofol, the transesophageal echocardiogram was advanced to the mid esophageal where 2D echocardiogram images as well as color Doppler images as well as continuous and pulse-wave Doppler images were performed. FINDINGS: The left atrial appendage appeared to be appeared to be intact without any evidence of thrombus. The mitral valve seems to be mildly thickened with moderate MR. The left ventricular dimension and systolic function seems to be within normal limits. The right ventricle appeared to be of normal size and function. No evidence of pericardial effusion. The aortic valve appeared to be mildly thickened. CONCLUSION: 1. Intact left atrial appendage. 2. Normal left ventricular dimension and systolic function. 3. Normal right ventricular dimension and systolic function. 4. Normal intracardiac valves beside moderate mitral regurgitation. 5. No evidence of pericardial effusion. MMODL / IJN: [id number] /
--- NOTE | 2021-05-24 11:36 | CE ---
CARDIAC ELECTROPHYSIOLOGY REPORT CARDIOVERSION: DATE OF SERVICE: May 24, 2021. PERFORMING PHYSICIAN: Federico Diaz MD. PROCEDURE PERFORMED: Successful cardioversion of atrial fibrillation to normal sinus mechanism using 200 joules on first attempt. INDICATION: Atrial fibrillation, uncontrolled on high dose of Cardizem as well as amiodarone IV. COMPLICATION: None. LEVEL OF SEDATION: The procedure was performed using propofol with OPTOMECHANICAL ENGINEER in the room. PROCEDURE DESCRIPTION.: After a transesophageal echocardiogram was performed and left atrial appendage thrombus was ruled out we pursued with the cardioversion. The patient cardioverted from atrial fibrillation to normal sinus mechanism using 200 joules on first attempt. POSTPROCEDURE MANAGEMENT: 1. Wean the patient from the Cardizem as well as amiodarone. 2. Switch the patient to oral AV quiana roya agents. 3. Follow up with the patient. REDDY / DAMIENN: [id number] /
[2021-05-24] MEDS: predniSONE 10 MG TAB PO SCH (11:40)
[2021-05-24] MEDS: MONTELUKAST 10 MG TAB PO SCH (11:41)
[2021-05-24] MEDS: ASPIRIN 81 MG PO SCH (11:41)
[2021-05-24] MEDS: SPIRONOLACTONE 25 MG TAB PO SCH (11:41)
[2021-05-24] MEDS: PANTOPRAZOLE 40 MG TABLET PO SCH ×2 (11:41→20:53)
[2021-05-24] MEDS: minoxidiL 2.5 MG TAB PO SCH (11:41)
[2021-05-24] MEDS: THEOPHYLLINE 24 HOUR 200 MG CAP.ER.24H PO SCH ×2 (11:42→20:52)
[2021-05-24] MEDS: VALSARTAN 160 MG TAB PO SCH (11:42)
[2021-05-24] MEDS: hydroCHLOROthiazide 25 MG TAB PO SCH (11:42)
[2021-05-24] MEDS: DILTIAZEM 125 MG in SODIUM CHLORIDE 0.9% 100 ML IV SCH (11:43)
--- NOTE | 2021-05-24 12:31 | ECHOF ---
Referral Reason:LV function, new afib MEASUREMENTS -------- HEIGHT: 175.3 cm WEIGHT: 103.9 kg BP: 96/67 IVSd: 1.0 cm (0.6 - 1.1) LVIDd: 4.5 cm (3.9 - 5.3) LVPWd: 1.0 cm (0.6 - 1.1) EDV(Teich): 91 ml IVSs: 1.5 cm LVIDs: 2.8 cm LVPWs: 1.2 cm %IVS Thck: 52 % ESV(Teich): 30 ml EF(Teich): 67 % %FS: 37 % SV(Teich): 62 ml Ao Diam: 2.9 cm (2.0 - 3.7) LA Diam: 3.9 cm (2.7 - 3.8) MR Vmax: 1.25 m/s MR maxP.24 mmHg AV Vmax: 1.13 m/s AV maxP.18 mmHg TR Vmax: 1.91 m/s TR maxP.52 mmHg RAP: 5.00 mmHg RVSP: 19.52 mmHg FINDINGS -------- Atrial fibrillation. This was a technically difficult study with suboptimal views. The left ventricular size is normal. Left ventricular wall thickness is normal. Overall left vent ricular systolic function is normal with, an EF between 55 - 60 %. The right ventricle is normal in size. The left atrial size is normal. The right atrial size is normal. Lumason used The aortic valve was not well visualized. There is trace mitral regurgitation. The tricuspid valve appears structurally normal. Mild tricuspid regurgitation present. Right vent ricular systolic pressure is normal at < 35 mmHg. The pulmonic valve was not well visualized. The aortic root size is normal. IVC Not well visulized. There is no pericardial effusion. CONCLUSIONS -------- 1. The left ventricular size is normal. 2. Left ventricular wall thickness is normal. 3. Overall left ventricular systolic function is normal with, an EF between 55 - 60 %. 4. There is trace mitral regurgitation. 5. Mild tricuspid regurgitation present. 6. There is no pericardial effusion. RESTROOMS OR LOUNGES MAID: Carey Myers RDCS
[2021-05-24] MEDS: METOPROLOL TARTRATE 25 MG TAB PO SCH ×2 (14:28→20:54)
[2021-05-24] MEDS: DILTIAZEM ORAL 30 MG TAB PO SCH ×2 (14:29→20:53)
[2021-05-24] MEDS: HEPARIN SOD,PORK IN 0.45% NACL 25,000 UNIT in 0.45% NACL 1 250ML.BAG IV SCH (18:13)
[2021-05-24] MEDS: AMIODARONE 450 MG in DEXTROSE 5% IN WATER 250 ML IV SCH ×2 (20:23)
[2021-05-24] MEDS: HYDROcodone/APAP 10-325MG 1 EACH TAB PO PRN (20:52)
[2021-05-24] MEDS: MELATONIN 5 MG TABLET PO SCH ×2 (20:53→22:20)
[2021-05-24] MEDS: ATORVASTATIN 80 MG TAB PO SCH (20:54)
[2021-05-24] MEDS: guaiFENesin-Coden 100-10MG/5ML 10 ML CUP PO PRN (22:21)
[2021-05-25 04:22] LABS: Basophils % (A) 0 %; Eosinophils # (A) 0.1 k/uL (0-0.7); Eosinophils % (A) 1 %; HCT 34.8 % (39.0-53.0); HGB 11.8 gm/dL (13.0-17.5); Lymphocytes # (A) 2.2 k/uL (1.0-4.8); Lymphocytes % (A) 24 %; MCH 35.7 pg (25.0-35.0); MCHC 33.9 g/dL (31.0-37.0); MCV 105.5 fL (80.0-100.0); Macrocytosis Moderate; Mean Platelet Volume 8.2; Monocytes # (A) 0.7 k/uL (0-1.0); Monocytes % (A) 8 %; Neutrophils # (A) 5.9 k/uL (1.3-7.7); Neutrophils % (A) 65 %; Platelet Count 172 k/uL (150-450); RDW 13.8 % (11.5-15.5); WBC 9.1 k/uL (3.8-10.6)
[2021-05-25 04:50] LABS: ALT 58 U/L (4-49); AST 44 U/L (17-59); African American GFR (CKD) >90 (>60 ml/min/1.73 sqM); Albumin 3.1 g/dL (3.5-5.0); Alkaline Phosphatase 56 U/L (38-126); Anion Gap 1 mmol/L; Blood Urea Nitrogen 12 mg/dL (9-20); Calcium 8.6 mg/dL (8.4-10.2); Carbon Dioxide 33 mmol/L (22-30); Chloride 103 mmol/L (98-107); Glucose 110 mg/dL (74-99); Non-African American GFR(CKD) >90 (>60 ml/min/1.73 sqM); Potassium 4.2 mmol/L (3.5-5.1); Sodium 137 mmol/L (137-145); Total Bilirubin 0.2 mg/dL (0.2-1.3); Total Protein 5.2 g/dL (6.3-8.2)
[2021-05-25] MEDS: LEVOTHYROXINE 50 MCG TAB PO SCH (06:50)
[2021-05-25] MEDS: carvediloL 12.5 MG TAB PO SCH ×2 (06:50→16:36)
--- NOTE | 2021-05-25 07:09 | P.PN ---
Subjective Progress Note Date: 05/25/21 Principal diagnosis: Cardiac arrhythmia The patient was seen this morning. He is feeling better. He underwent yesterday a LORI and cardioversion. He has been maintaining normal sinus mechanism. He was started on calcium channel roya with Cardizem and he is also on beta roya. I am going to DC the heparin IV and start the patient on oral anticoagulation. Blood work was reviewed. The patient can be transferred to the selective units. The echo showed normal left ventricular systolic function Objective - Vital Signs Vital signs: Vital Signs Temp 98.5 F 05/24/21 04:00 Pulse 47 L 05/25/21 06:00 Resp 18 05/25/21 06:00 BP 120/60 05/25/21 06:00 Pulse Ox 97 05/25/21 06:00 Intake & Output 05/24/21 05/25/21 05/25/21 18:59 06:59 18:59 Intake Total 782.938 240 Output Total 1250 1150 Balance -467.062 -910 Weight 105.1 kg Intake: IV 240 240 0.9 NS 240 240 Intake, IV Titration 542.938 Amount Amiodarone 450 mg In 239.449 Dextrose 5% in Water 250 ml @ 0.5 MG/MIN 16.667 mls/hr IV .Q15H [facility] Rx#: [id number] Diltiazem 125 mg In 125 Sodium Chloride 0.9% 100 ml @ 10 MG/HR 10 mls/hr IV .[id number] [facility] Rx#: [id number] Heparin Sod,Pork in 0.45% 178.489 NaCl 25,000 unit In 0.45 % NaCl 1 250ml.bag @ 10. 021 UNITS/KG/HR 10 mls/hr IV .Q24H [facility] Rx#: [id number] Output: Urine 1250 1150 Other: Voiding Method Urinal # Voids 1 - Constitutional General appearance: Present: no acute distress - Respiratory Respiratory: bilateral: diminished - Cardiovascular Rhythm: regular - Labs CBC & Chem 7: 05/25/21 03:44 05/25/21 03:44 Labs: Abnormal Lab Results - Last 24 Hours (Table) 05/24/21 05/24/21 05/24/21 Range/Units 07:03 10:05 16:01 RBC (4.30-5.90) m/uL Hgb (13.0-17.5) gm/dL Hct (39.0-53.0) % MCV (80.0-100.0) fL MCH (25.0-35.0) pg APTT 38.3 H (22.0-30.0) sec Carbon Dioxide (22-30) mmol/L Glucose (74-99) mg/dL ALT (4-49) U/L Troponin I 0.045 H* 0.035 H* (0.000-0.034) ng/mL Total Protein (6.3-8.2) g/dL Albumin (3.5-5.0) g/dL 05/25/21 05/25/21 05/25/21 Range/Units 00:30 03:44 03:44 RBC 3.30 L (4.30-5.90) m/uL Hgb 11.8 L (13.0-17.5) gm/dL Hct 34.8 L (39.0-53.0) % MCV 105.5 H (80.0-100.0) fL MCH 35.7 H (25.0-35.0) pg APTT 60.3 H (22.0-30.0) sec Carbon Dioxide 33 H (22-30) mmol/L Glucose 110 H (74-99) mg/dL ALT 58 H (4-49) U/L Troponin I (0.000-0.034) ng/mL Total Protein 5.2 L (6.3-8.2) g/dL Albumin 3.1 L (3.5-5.0) g/dL Assessment and Plan Assessment: Assessment #1 paroxysmal atrial fibrillation #2 coronary artery disease #3 chronic obstructive pulmonary disease Plan #1 the patient has been maintaining normal sinus mechanism after the cardioversion #2 DC heparin IV and start the patient on oral anticoagulation #3 the patient can be transferred to the floor #4 discharged in the next 24 hours
[2021-05-25] MEDS: BUDESONIDE 1 MG/2 ML NEBU INHALATION SCH ×2 (07:29→19:14)
[2021-05-25] MEDS: IPRATROPIUM-ALBUTEROL 3 ML NEB INHALATION SCH (07:29)
[2021-05-25] MEDS: ASPIRIN 81 MG PO SCH (09:52)
[2021-05-25] MEDS: MONTELUKAST 10 MG TAB PO SCH (09:53)
[2021-05-25] MEDS: PANTOPRAZOLE 40 MG TABLET PO SCH ×2 (09:53→21:49)
[2021-05-25] MEDS: DILTIAZEM ORAL 30 MG TAB PO SCH ×3 (09:53→21:49)
[2021-05-25] MEDS: METOPROLOL TARTRATE 25 MG TAB PO SCH ×2 (09:53→21:49)
[2021-05-25] MEDS: predniSONE 10 MG TAB PO SCH (09:53)
[2021-05-25] MEDS: SPIRONOLACTONE 25 MG TAB PO SCH (09:53)
[2021-05-25] MEDS: APIXABAN 5 MG TAB PO SCH ×2 (09:53→21:51)
[2021-05-25] MEDS: VALSARTAN 160 MG TAB PO SCH (09:54)
[2021-05-25] MEDS: THEOPHYLLINE 24 HOUR 200 MG CAP.ER.24H PO SCH ×2 (09:54→21:49)
[2021-05-25] MEDS: hydroCHLOROthiazide 25 MG TAB PO SCH (09:54)
[2021-05-25] MEDS: minoxidiL 2.5 MG TAB PO SCH (09:55)
[2021-05-25] MEDS: guaiFENesin-Coden 100-10MG/5ML 10 ML CUP PO PRN ×2 (09:58→21:47)
[2021-05-25] MEDS: HYDROcodone/APAP 10-325MG 1 EACH TAB PO PRN ×2 (09:59→21:47)
--- NOTE | 2021-05-25 10:26 | P.PN ---
Subjective Progress Note Date: 05/25/21 This is a 65-year-old male patient who presented to the hospital with complaints of ongoing shortness of breath and diaphoresis along with chest pain over the past 3 days. Patient reports that he felt symptoms started Thursday after cutting the grass in which he became very short of breath and diaphoretic with any activity. Patient also past medical history of asthma, COPD, hyperlipidemia, hypertension, osteoarthritis and coronary artery disease with previous cardiac stent. Upon arrival patient was found to be in A. fib with RVR. At that time patient was started on Cardizem in the ER but became hypotensive. Cardizem drip was DC'd. Cardiology services were consulted and patient was started on a miodarone drip along with heparin drip. This does appear to be new onset atrial fibrillation. Patient also having elevated troponin level. Initial chest x-ray completed showing chronic changes without acute new pulmonary process. Patient has been admitted to the intensive care unit. Cardiology service is consulted. Critical care service is consulted. At this time patient remains short of br eath. Heart rate elevated 130s to 140s. Patient denies nausea vomiting or diarrhea. Patient denies any urinary burning or frequency On 05/24/2021 patient alert and oriented 3. Heart rate remains elevated despite amiodarone drip. Plans per nursing staff for cardioversion today at 9:30 per cardiology with LORI. Patient remains short of breath with activity. Repeat chest x-ray ordered per critical care services. Patient denies nausea vomiting or diarrhea. Patient denies any urinary burning or frequency. On 05/25/2021 patient was seen and examined in the ICU he is alert and oriented 3 in no apparent distress, he denies any complaints there is no fever or chills no headache or dizziness no chest pain no shortness of breath no palpitation no cough no nausea or vomiting no abdominal pain no diarrhea no blood in the stools no burning with urination no frequency or urgency and no hematuria, there is no weakness or numbness in any of the extremities no change in vision speech or gai t. Patient underwent cardioversion yesterday, he has been maintained in normal sinus rhythm since then, IV heparin was discontinued and patient was started on Eliquis, per cardiology possible discharge to home tomorrow if stable. Objective - Vital Signs Vital signs: Vital Signs Temp 98.5 F 05/24/21 04:00 Pulse 58 L 05/25/21 07:29 Resp 18 05/25/21 06:00 BP 120/60 05/25/21 06:00 Pulse Ox 97 05/25/21 06:00 Intake & Output 05/24/21 05/25/21 05/25/21 18:59 06:59 18:59 Intake Total 782.938 240 Output Total 1250 1150 Balance -467.062 -910 Weight 105.1 kg Intake: IV 240 240 0.9 NS 240 240 Intake, IV Titration 542.938 Amount Amiodarone 450 mg In 239.449 Dextrose 5% in Water 250 ml @ 0.5 MG/MIN 16.667 mls/hr IV .Q15H [facility] Rx#: [id number] Diltiazem 125 mg In 125 Sodium Chloride 0.9% 100 ml @ 10 MG/HR 10 mls/hr IV .[id number] [facility] Rx#: [id number] Heparin Sod,Pork in 0.45% 178.489 NaCl 25,000 unit In 0.45 % NaCl 1 250ml.bag @ 10. 021 UNITS/KG/HR 10 mls/hr IV .Q24H [facility] Rx#: [id number] Output: Urine 1250 1150 Other: Voiding Method Urinal # Voids 1 - Exam In general patient is alert and oriented 3 in no apparent distress Head normocephalic and atraumatic Neck supple no JVD no goiter Lungs clear to auscultation bilaterally no wheezing or crackles Heart Regular heart rate. No gallops no murmurs Abdomen is soft nontender nondistended positive bowel sounds no hepatosplenome jena Extremities no edema no cyanosis or clubbing Neuro no gross focal neurological deficit - Labs CBC & Chem 7: 05/25/21 03:44 05/25/21 03:44 Labs: Abnormal Lab Results - Last 24 Hours (Table) 05/24/21 05/24/21 05/24/21 Range/Units 07:03 10:05 16:01 RBC (4.30-5.90) m/uL Hgb (13.0-17.5) gm/dL Hct (39.0-53.0) % MCV (80.0-100.0) fL MCH (25.0-35.0) pg APTT 38.3 H (22.0-30.0) sec Carbon Dioxide (22-30) mmol/L Glucose (74-99) mg/dL ALT (4-49) U/L Troponin I 0.045 H* 0.035 H* (0.000-0.034) ng/mL Total Protein (6.3-8.2) g/dL Albumin (3.5-5.0) g/dL 05/25/21 05/25/21 05/25/21 Range/Units 00:30 03:44 03:44 RBC 3.30 L (4.30-5.90) m/uL Hgb 11.8 L (13.0-17.5) gm/dL Hct 34.8 L (39.0-53.0) % MCV 105.5 H (80.0-100.0) fL MCH 35.7 H (25.0-35.0) pg APTT 60.3 H (22.0-30.0) sec Carbon Dioxide 33 H (22-30) mmol/L Glucose 110 H (74-99) mg/dL ALT 58 H (4-49) U/L Troponin I (0.000-0.034) ng/mL Total Protein 5.2 L (6.3-8.2) g/dL Albumin 3.1 L (3.5-5.0) g/dL Assessment and Plan Assessment: 1. New onset atrial fibrillation with rapid ventricular response, on admission, patient underwent cardioversion yesterday, he is currently in normal sinus rhythm, he was started on Eliquis 2. Abnormal troponin level 3. History of COPD. Patient maintained on albuterol breathing treatments. Critical care pulmonary service is following 3. History of asthma 4. History of coronary artery disease with stents 5. History of GERD 6. History of hyperlipidemia 7. History of essential hypertension DVT prophylaxis heparin drip. GI prophylaxis Protonix Patient currently admitted to the intensive care unit Cardiology and critical care service is following Patient was maintained on heparin drip and amiodarone drip, now patient is off amiodarone and heparin drip and was started on Eliquis Patient underwent LORI cardioversion on 05/24/2021, currently stable possible discharge to home tomorrow
--- NOTE | 2021-05-25 12:15 | P.PN ---
Subjective Progress Note Date: 05/25/21 Principal diagnosis: Atrial fibrillation with rapid ventricular response This is a very pleasant 65-year-old gentleman with a known history of coronary artery disease with previous stent placement, carotid artery disease with previous stent placement, hypothyroidism, former smoker, hyperlipidemia, hypertension, chronic asthmatic bronchitis. He presented to the emergency room yesterday with several days of not feeling quite right. He did develop some intermittent chest pain as well. Some palpitations and dizziness. He was found to be in atrial fibrillation with a rapid ventricular response. He was initiated on a heparin drip per weight-based protocol. Initiated on amiodarone currently on 0.5 mg/m. Cardizem drip at 10 mg per hour. 0.9 normal saline at 20 mL per hour. He is seen today in consultation in the intensive care unit. He is currently awake and alert in no acute distress. Still in atrial fibrillation with a rapid ventricular response. He is maintaining O2 saturations in the 90s on 2 L/m per nasal cannula. Chest x-ray revealed evidence of chronic changes but no acute pulmonary process. White count 11.3. Hemoglobin 12.3. Sodium 137. Potassium 4.3. Creatinine 0.2. Troponin 0.074. 0.045. TSH 2.89. AST 47, ALT 46. Plan is for possible LORI and cardioversion today. The patient is seen today 05/25/2021 in follow-up in the intensive care unit. He is currently resting comfortably in bed. Awake and alert in no acute distress. Maintaining good O2 saturations in the 90s on 2 L/m per nasal cannula. No drips. No IV fluids. He did undergo LORI and cardioversion yesterday with successful transition to regular sinus rhythm which she remains today. No chest discomfort. No shortness of breath, cough or congestion. No palpitations. White count 9.1. Hemoglobin 11.3. Sodium 137. Potassium 4.2. Creatinine 0.77. Anticoagulated with Eliquis. He is using his home Trelegy and albuterol. Objective - Vital Signs Vital signs: Vital Signs Temp 98.5 F 05/24/21 04:00 Pulse 54 L 05/25/21 08:00 Resp 15 05/25/21 08:00 BP 117/55 05/25/21 08:00 Pulse Ox 94 L 05/25/21 08:00 Intake & Output 05/24/21 05/25/21 05/25/21 18:59 06:59 18:59 Intake Total 782.938 240 Output Total 1250 1150 Balance -467.062 -910 Weight 105.1 kg Intake: IV 240 240 0.9 NS 240 240 Intake, IV Titration 542.938 Amount Amiodarone 450 mg In 239.449 Dextrose 5% in Water 250 ml @ 0.5 MG/MIN 16.667 mls/hr IV .Q15H [facility] Rx#: [id number] Diltiazem 125 mg In 125 Sodium Chloride 0.9% 100 ml @ 10 MG/HR 10 mls/hr IV .[id number] [facility] Rx#: [id number] Heparin Sod,Pork in 0.45% 178.489 NaCl 25,000 unit In 0.45 % NaCl 1 250ml.bag @ 10. 021 UNITS/KG/HR 10 mls/hr IV .Q24H [facility] Rx#: [id number] Output: Urine 1250 1150 Other: Voiding Method Urinal # Voids 1 - Exam GENERAL EXAM: Alert, very pleasant 65-year-old gentleman, on 2 L nasal cannula, comfortable in no apparent distress. HEAD: Normocephalic. EYES: Normal reaction of pupils, equal size. NOSE: Clear with pink turbinates. THROAT: No erythema or exudates. NECK: No masses, no JVD. CHEST: No chest wall deformity. LUNGS: Equal air entry with no crackles, wheeze, rhonchi or dullness. Diminished. CVS: S1 and S2 normal with no audible murmur, regular rhythm. ABDOMEN: No hepatosplenomegaly, normal bowel sounds, no guarding or rigidity. SPINE: No scoliosis or deformity SKIN: No rashes CENTRAL NERVOUS SYSTEM: No focal deficits, tone is normal in all 4 extremities. EXTREMITIES: There is no peripheral edema. No clubbing, no cyanosis. Peripheral pulses are intact. - Labs CBC & Chem 7: 05/25/21 03:44 05/25/21 03:44 Labs: Abnormal Lab Results - Last 24 Hours (Table) 05/24/21 05/25/21 05/25/21 Range/Units 16:01 00:30 03:44 RBC 3.30 L (4.30-5.90) m/uL Hgb 11.8 L (13.0-17.5) gm/dL Hct 34.8 L (39.0-53.0) % MCV 105.5 H (80.0-100.0) fL MCH 35.7 H (25.0-35.0) pg APTT 38.3 H 60.3 H (22.0-30.0) sec Carbon Dioxide (22-30) mmol/L Glucose (74-99) mg/dL ALT (4-49) U/L Total Protein (6.3-8.2) g/dL Albumin (3.5-5.0) g/dL 05/25/21 Range/Units 03:44 RBC (4.30-5.90) m/uL Hgb (13.0-17.5) gm/dL Hct (39.0-53.0) % MCV (80.0-100.0) fL MCH (25.0-35.0) pg APTT (22.0-30.0) sec Carbon Dioxide 33 H (22-30) mmol/L Glucose 110 H (74-99) mg/dL ALT 58 H (4-49) U/L Total Protein 5.2 L (6.3-8.2) g/dL Albumin 3.1 L (3.5-5.0) g/dL Assessment and Plan Assessment: 1 New-onset atrial fibrillation with rapid ventricular response. Status post LORI/cardioversion on 05/24/2021. Currently in sinus rhythm. On Eliquis 2 Troponin leak secondary to above 3 History of coronary artery disease with previous stent placement 4 History of carotid artery disease with previous stent placement 5 Chronic severe persistent bronchial asthma 6 Former smoker 7 Hypothyroidism 8 Hypertension 9 Hyperlipidemia Plan: The patient was seen and evaluated by Dr. Cookie Vela from the pulmonary and critical care standpoint Remains in sinus rhythm Anticoagulated with Eliquis To be transferred his 3 selective We will continue to follow I, the cosigning physician, performed a history & physical examination of the patient. Lungs sounds are clear, diminished. Maintaining good O2 saturations in the 90s on 2 L/m per nasal cannula. I discussed the assessment and plan of care with my nurse practitioner, Joya Muniz. I attest to the above note as dictated by her.
[2021-05-25] MEDS: ALBUTEROL NEBULIZED 2.5 MG/3 ML INHALATION PRN ×2 (16:03→19:14)
[2021-05-25] MEDS ORDERED: SUCCINYLCHOLINE CHLORIDE VIAL 200 MG/10 ML VIAL IV ONE (18:19)
[2021-05-25] MEDS ORDERED: propofoL 100 ML IV ONE (18:19)
[2021-05-25] MEDS: MELATONIN 5 MG TABLET PO SCH (21:48)
[2021-05-25] MEDS: ATORVASTATIN 80 MG TAB PO SCH (21:49)
[2021-05-26] MEDS: carvediloL 12.5 MG TAB PO SCH (06:29)
[2021-05-26] MEDS: LEVOTHYROXINE 50 MCG TAB PO SCH (06:29)
[2021-05-26] MEDS: HYDROcodone/APAP 10-325MG 1 EACH TAB PO PRN ×2 (06:29→21:10)
[2021-05-26] MEDS: ALBUTEROL NEBULIZED 2.5 MG/3 ML INHALATION SCH ×4 (07:48→20:04)
[2021-05-26] MEDS: BUDESONIDE 1 MG/2 ML NEBU INHALATION SCH ×2 (07:48→20:04)
--- NOTE | 2021-05-26 08:41 | P.PN ---
Subjective Progress Note Date: 05/26/21 Principal diagnosis: Cardiac arrhythmia The patient was seen this morning. He has been maintaining normal sinus mechanism. Currently he is on Cardizem by mouth and he is also on oral anticoagulation. He denies any feeling of heart racing or any chest pain or chest discomfort. Pulmonary team continues to be on the case. The patient potentially can be discharged in the next 12-24 hours. Objective - Vital Signs Vital signs: Vital Signs Temp 98.8 F 05/26/21 04:00 Pulse 64 05/26/21 08:09 Resp 21 05/26/21 04:00 BP 142/65 05/26/21 04:00 Pulse Ox 98 05/26/21 04:00 Intake & Output 05/25/21 05/26/21 05/26/21 18:59 06:59 18:59 Intake Total 800 180 Output Total 600 Balance 200 180 Weight 101.3 kg Intake: Oral 800 180 Output: Urine 600 Other: # Voids 2 - Constitutional General appearance: Present: no acute distress - Respiratory Respiratory: bilateral: diminished - Cardiovascular Rhythm: regular Heart sounds: normal: S1, S2 - Labs CBC & Chem 7: 05/25/21 03:44 05/25/21 03:44 Assessment and Plan Assessment: Assessment #1 paroxysmal atrial fibrillation #2 coronary artery disease #3 chronic obstructive pulmonary disease Plan #1 the patient has been maintaining normal sinus mechanism after the cardioversion #2 continue the oral anticoagulation #3 the patient can be discharged in the next 12-24 hour
[2021-05-26 08:47] LABS: Basophils % (A) 0 %; Eosinophils # (A) 0.2 k/uL (0-0.7); Eosinophils % (A) 1 %; HCT 35.2 % (39.0-53.0); HGB 12.2 gm/dL (13.0-17.5); Lymphocytes # (A) 2.1 k/uL (1.0-4.8); Lymphocytes % (A) 17 %; MCHC 34.8 g/dL (31.0-37.0); MCV 103.7 fL (80.0-100.0); Macrocytosis Slight; Mean Platelet Volume 7.9; Monocytes # (A) 0.6 k/uL (0-1.0); Monocytes % (A) 5 %; Neutrophils # (A) 9.3 k/uL (1.3-7.7); Neutrophils % (A) 76 %; Platelet Count 189 k/uL (150-450); RBC 3.39 m/uL (4.30-5.90); RDW 13.7 % (11.5-15.5); WBC 12.3 k/uL (3.8-10.6)
[2021-05-26] MEDS: DILTIAZEM ORAL 30 MG TAB PO SCH ×3 (08:55→21:15)
[2021-05-26 09:12] LABS: ALT 53 U/L (4-49); AST 34 U/L (17-59); African American GFR (CKD) >90 (>60 ml/min/1.73 sqM); Albumin 3.2 g/dL (3.5-5.0); Alkaline Phosphatase 54 U/L (38-126); Anion Gap 5 mmol/L; Blood Urea Nitrogen 15 mg/dL (9-20); Calcium 8.8 mg/dL (8.4-10.2); Carbon Dioxide 32 mmol/L (22-30); Chloride 99 mmol/L (98-107); Glucose 128 mg/dL (74-99); Non-African American GFR(CKD) 87 (>60 ml/min/1.73 sqM); Potassium 3.7 mmol/L (3.5-5.1); Sodium 136 mmol/L (137-145); Total Bilirubin 0.3 mg/dL (0.2-1.3); Total Protein 5.4 g/dL (6.3-8.2)
[2021-05-26] MEDS: MONTELUKAST 10 MG TAB PO SCH (09:15)
[2021-05-26] MEDS: hydroCHLOROthiazide 25 MG TAB PO SCH (09:15)
[2021-05-26] MEDS: minoxidiL 2.5 MG TAB PO SCH (09:15)
[2021-05-26] MEDS: METOPROLOL TARTRATE 25 MG TAB PO SCH ×2 (09:15→21:11)
[2021-05-26] MEDS: ASPIRIN 81 MG PO SCH (09:15)
[2021-05-26] MEDS: APIXABAN 5 MG TAB PO SCH ×2 (09:15→21:11)
[2021-05-26] MEDS: SPIRONOLACTONE 25 MG TAB PO SCH (09:16)
[2021-05-26] MEDS: predniSONE 10 MG TAB PO SCH (09:16)
[2021-05-26] MEDS: PANTOPRAZOLE 40 MG TABLET PO SCH ×2 (09:16→21:11)
[2021-05-26] MEDS: THEOPHYLLINE 24 HOUR 200 MG CAP.ER.24H PO SCH ×2 (09:17→21:12)
[2021-05-26] MEDS: VALSARTAN 160 MG TAB PO SCH (10:29)
--- NOTE | 2021-05-26 12:06 | P.PN ---
Subjective Progress Note Date: 05/26/21 Principal diagnosis: Shortness of breath. Atrial fibrillation with rapid ventricular response This is a very pleasant 65-year-old gentleman with a known history of coronary artery disease with previous stent placement, carotid artery disease with previous stent placement, hypothyroidism, former smoker, hyperlipidemia, hypertension, chronic asthmatic bronchitis. He presented to the emergency room yesterday with several days of not feeling quite right. He did develop some i ntermittent chest pain as well. Some palpitations and dizziness. He was found to be in atrial fibrillation with a rapid ventricular response. He was initiated on a heparin drip per weight-based protocol. Initiated on amiodarone currently on 0.5 mg/m. Cardizem drip at 10 mg per hour. 0.9 normal saline at 20 mL per hour. He is seen today in consultation in the intensive care unit. He is currently awake and alert in no acute distress. Still in atrial fibrillation with a rapid ventricular response. He is maintaining O2 saturations in the 90s on 2 L/m per nasal cannula. Chest x-ray revealed evidence of chronic changes but no acute pulmonary process. White count 11.3. Hemoglobin 12.3. Sodium 137. Potassium 4.3. Creatinine 0.2. Troponin 0.074. 0.045. TSH 2.89. AST 47, ALT 46. Plan is for possible LORI and cardioversion today. The patient is seen today 05/25/2021 in follow-up in the intensive care unit. He is currently resting comfortably in bed. Awake and alert in no acute distress. Maintaining good O2 saturations in the 90s on 2 L/m per nasal cannula. No drips. No IV fluids. He did undergo LORI and cardioversion yesterday with successful transition to regular sinus rhythm which she remains today. No chest discomfort. No shortness of breath, cough or congestion. No palpitations. White count 9.1. Hemoglobin 11.3. Sodium 137. Potassium 4.2. Creatinine 0.77. Anticoagulated with Eliquis. He is using his home Trelegy and albuterol. Progress note dated 05/26/2021. The patient was transferred out of the intensive care unit yesterday. Currently, he is on the stepdown unit. He is in room 372. Clinically, the patient seems be doing much better. His breathing is much improved. The patient continues on his usual home medications including theophylline, prednisone,Trelegy, and albuterol. Today's white count is 12.3, hemoglobin 12.2, hematocrit 35.2, platelet count 189,000. Sodium 136, potassium 3.7, chlorides 99, CO2 32, anion gap 5, BUN and creatinine were 15 and 0.92. Pro- calcitonin level was 0.04. No recent chest x-ray to review. Objective - Vital Signs Vital signs: Vital Signs Temp 98.7 F 05/26/21 08:00 Pulse 60 05/26/21 11:38 Resp 22 05/26/21 08:00 BP 91/52 05/26/21 08:00 Pulse Ox 94 L 05/26/21 08:00 Intake & Output 05/25/21 05/26/21 05/26/21 18:59 06:59 18:59 Intake Total 800 180 Output Total 600 Balance 200 180 Weight 101.3 kg Intake: Oral 800 180 Output: Urine 600 Other: Voiding Method Urinal # Voids 2 - Exam No acute distress, oriented 3. 4 L saturation is 94%. No evidence of conversational dyspnea or use of accessory muscles. Cough is a bit wet and congested. HEENT examination is grossly unremarkable. Neck supple. Full range of motion. No adenopathy thyromegaly or neck vein distention. Cardiovascular examination reveals regular rhythm rate. S1-S2 normal. No S3 or S4. No discernible murmur noted. Heart sounds are very distant. Heart rate 60 bpm. Lungs reveal coarse bilateral expiratory rhonchi. Expiratory wheezes are appreciated. Breath sounds equal bilaterally but diminished throughout. There is prolongation on forced maneuver. No crackles. Abdomen soft bowel sounds are heard. No masses or tenderness. Extremities are intact. No cyanosis clubbing or edema. Skin is without rash or lesion. Neurologic examination is brief but nonfocal. - Labs CBC & Chem 7: 05/26/21 08:10 05/26/21 08:10 Labs: Abnormal Lab Results - Last 24 Hours (Table) 05/26/21 05/26/21 Range/Units 08:10 08:10 WBC 12.3 H (3.8-10.6) k/uL RBC 3.39 L (4.30-5.90) m/uL Hgb 12.2 L (13.0-17.5) gm/dL Hct 35.2 L (39.0-53.0) % MCV 103.7 H (80.0-100.0) fL MCH 36.0 H (25.0-35.0) pg Neutrophils # 9.3 H (1.3-7.7) k/uL Sodium 136 L (137-145) mmol/L Carbon Dioxide 32 H (22-30) mmol/L Glucose 128 H (74-99) mg/dL ALT 53 H (4-49) U/L Total Protein 5.4 L (6.3-8.2) g/dL Albumin 3.2 L (3.5-5.0) g/dL Assessment and Plan Assessment: New onset atrial fibrillation with RVR. Status post transesophageal echocardiogram, and cardioversion on 05/24/2021. Mild troponin leak. History of CAD with previous stent placement. History of carotid artery disease, status post stent placement. Chronic severe COPD/bronchial asthma. Previous history of tobacco use. Hypothyroidism. History of hypertension. History of hyperlipidemia. Plan: Plan dated 06/05/2021. The patient is currently on his normal home dose of oxygen, and is back on all his normal breathing medications. From my perspective, the patient could be considered for discharge. We'll see what cardiology has to say and also his primary care physician, who is Dr. Ervin. The patient sees my partner in the office. He should follow-up with my partner the next 10 days to 2 weeks. Prognosis is guarded. We will continue to follow and make recommendations where appropriate. Time with Patient: Less than 30
--- NOTE | 2021-05-26 12:15 | P.PN ---
Subjective Progress Note Date: 05/26/21 This is a 65-year-old male patient who presented to the hospital with complaints of ongoing shortness of breath and diaphoresis along with chest pain over the past 3 days. Patient reports that he felt symptoms started Thursday after cutting the grass in which he became very short of breath and diaphoretic with any activity. Patient also past medical history of asthma, COPD, hyperlipidemia, hypertension, osteoarthritis and coronary artery disease with previous cardiac stent. Upon arrival patient was found to be in A. fib with RVR. At that time patient was started on Cardizem in the ER but became hypotensive. Cardizem drip was DC'd. Cardiology services were consulted and patient was started on a miodarone drip along with heparin drip. This does appear to be new onset atrial fibrillation. Patient also having elevated troponin level. Initial chest x-ray completed showing chronic changes without acute new pulmonary process. Patient has been admitted to the intensive care unit. Cardiology service is consulted. Critical care service is consulted. At this time patient remains short of br eath. Heart rate elevated 130s to 140s. Patient denies nausea vomiting or diarrhea. Patient denies any urinary burning or frequency On 05/24/2021 patient alert and oriented 3. Heart rate remains elevated despite amiodarone drip. Plans per nursing staff for cardioversion today at 9:30 per cardiology with LORI. Patient remains short of breath with activity. Repeat chest x-ray ordered per critical care services. Patient denies nausea vomiting or diarrhea. Patient denies any urinary burning or frequency. On 05/25/2021 patient was seen and examined in the ICU he is alert and oriented 3 in no apparent distress, he denies any complaints there is no fever or chills no headache or dizziness no chest pain no shortness of breath no palpitation no cough no nausea or vomiting no abdominal pain no diarrhea no blood in the stools no burning with urination no frequency or urgency and no hematuria, there is no weakness or numbness in any of the extremities no change in vision speech or gai t. Patient underwent cardioversion yesterday, he has been maintained in normal sinus rhythm since then, IV heparin was discontinued and patient was started on Eliquis, per cardiology possible discharge to home tomorrow if stable. On 05/26/2021 patient is alert and oriented 3. Patient has been moved out of the intensive care unit. Patient still complaining of some shortness of breath. Will order repeat chest x-ray. Cardiology and pulmonary services are following. Patient remains on eliquis in Cardizem. Heart rate remains controlled in sinus rhythm. At this time patient denies chest pain. Patient denies nausea vomiting or diarrhea. Patient denies any urinary burning or frequency Objective - Vital Signs Vital signs: Vital Signs Temp 98.7 F 05/26/21 08:00 Pulse 60 05/26/21 11:38 Resp 22 05/26/21 08:00 BP 91/52 05/26/21 08:00 Pulse Ox 94 L 05/26/21 08:00 Intake & Output 05/25/21 05/26/21 05/26/21 18:59 06:59 18:59 Intake Total 800 180 Output Total 600 Balance 200 180 Weight 101.3 kg Intake: Oral 800 180 Output: Urine 600 Other: Voiding Method Urinal # Voids 2 - Exam In general patient is alert and oriented 3 in no apparent distress Head normocephalic and atraumatic Neck supple no JVD no goiter Lungs clear to auscultation bilaterally no wheezing or crackles Heart Regular heart rate. No gallops no murmurs Abdomen is soft nontender nondistended positive bowel sounds no hepatosplenomegaly Extremities no edema no cyanosis or clubbing Neuro no gross focal neurological deficit - Labs CBC & Chem 7: 05/26/21 08:10 05/26/21 08:10 Labs: Abnormal Lab Results - Last 24 Hours (Table) 05/26/21 05/26/21 Range/Units 08:10 08:10 WBC 12.3 H (3.8-10.6) k/uL RBC 3.39 L (4.30-5.90) m/uL Hgb 12.2 L (13.0-17.5) gm/dL Hct 35.2 L (39.0-53.0) % MCV 103.7 H (80.0-100.0) fL MCH 36.0 H (25.0-35.0) pg Neutrophils # 9.3 H (1.3-7.7) k/uL Sodium 136 L (137-145) mmol/L Carbon Dioxide 32 H (22-30) mmol/L Glucose 128 H (74-99) mg/dL ALT 53 H (4-49) U/L Total Protein 5.4 L (6.3-8.2) g/dL Albumin 3.2 L (3.5-5.0) g/dL Assessment and Plan Assessment: 1. New onset atrial fibrillation with rapid ventricular response, on admission, patient underwent cardioversion yesterday, he is currently in normal sinus r hythm, he was started on Eliquis 2. Abnormal troponin level 3. History of COPD. Patient maintained on albuterol breathing treatments. Critical care pulmonary service is following 3. History of asthma 4. History of coronary artery disease with stents 5. History of GERD 6. History of hyperlipidemia 7. History of essential hypertension DVT prophylaxis eliquis. GI prophylaxis Protonix Patient currently admitted to the intensive care unit Cardiology and critical care service is following repeatchest x-ray ordered Patient was maintained on heparin drip and amiodarone drip, now patient is off amiodarone and heparin drip and was started on Eliquis Patient underwent LORI cardioversion on 05/24/2021, currently stable possible discharge to home tomorrow
--- NOTE | 2021-05-26 14:46 | XR ---
EXAMINATION TYPE: XR chest 2V DATE OF EXAM: 05/26/2021 COMPARISON: 05/24/2021 HISTORY: Short of breath TECHNIQUE: FINDINGS: There is some patchy atelectasis at the lung bases. Heart size is normal. There is no heart failure. There are chest leads. Bony thorax is intact. IMPRESSION: Increased patchy atelectasis and pleural reaction at the lung bases compared to recent ex am. No heart failure.
[2021-05-26] MEDS: guaiFENesin-Coden 100-10MG/5ML 10 ML CUP PO PRN (21:10)
[2021-05-26] MEDS: MELATONIN 5 MG TABLET PO SCH (21:11)
[2021-05-26] MEDS: ATORVASTATIN 80 MG TAB PO SCH (21:11)
[2021-05-27 04:18] VITALS: RESP 18
[2021-05-27] MEDS: HYDROcodone/APAP 10-325MG 1 EACH TAB PO PRN (04:41)
[2021-05-27] MEDS: LEVOTHYROXINE 50 MCG TAB PO SCH (06:14)
[2021-05-27 07:57] LABS: Basophils % (A) 0 %; Eosinophils # (A) 0.2 k/uL (0-0.7); Eosinophils % (A) 2 %; HCT 35.6 % (39.0-53.0); Lymphocytes # (A) 1.9 k/uL (1.0-4.8); Lymphocytes % (A) 21 %; MCH 35.2 pg (25.0-35.0); MCHC 33.9 g/dL (31.0-37.0); MCV 103.8 fL (80.0-100.0); Macrocytosis Slight; Mean Platelet Volume 7.8; Monocytes # (A) 0.7 k/uL (0-1.0); Monocytes % (A) 8 %; Neutrophils # (A) 6.1 k/uL (1.3-7.7); Neutrophils % (A) 67 %; Platelet Count 196 k/uL (150-450); RBC 3.42 m/uL (4.30-5.90); RDW 13.7 % (11.5-15.5); WBC 9.1 k/uL (3.8-10.6)
[2021-05-27 08:15] LABS: ALT 47 U/L (4-49); AST 30 U/L (17-59); African American GFR (CKD) >90 (>60 ml/min/1.73 sqM); Albumin 3.3 g/dL (3.5-5.0); Alkaline Phosphatase 53 U/L (38-126); Anion Gap 4 mmol/L; Blood Urea Nitrogen 13 mg/dL (9-20); Calcium 8.9 mg/dL (8.4-10.2); Carbon Dioxide 35 mmol/L (22-30); Chloride 98 mmol/L (98-107); Glucose 91 mg/dL (74-99); Non-African American GFR(CKD) >90 (>60 ml/min/1.73 sqM); Potassium 4.3 mmol/L (3.5-5.1); Sodium 137 mmol/L (137-145); Total Bilirubin 0.3 mg/dL (0.2-1.3); Total Protein 5.6 g/dL (6.3-8.2)
[2021-05-27 08:21] VITALS: BP 119/64; TEMP 98.2
[2021-05-27] MEDS: THEOPHYLLINE 24 HOUR 200 MG CAP.ER.24H PO SCH (08:21)
[2021-05-27] MEDS: VALSARTAN 160 MG TAB PO SCH (08:21)
[2021-05-27] MEDS: PANTOPRAZOLE 40 MG TABLET PO SCH (08:22)
[2021-05-27] MEDS: ASPIRIN 81 MG PO SCH (08:22)
[2021-05-27] MEDS: DILTIAZEM ORAL 30 MG TAB PO SCH (08:22)
[2021-05-27] MEDS: METOPROLOL TARTRATE 25 MG TAB PO SCH (08:22)
[2021-05-27] MEDS: minoxidiL 2.5 MG TAB PO SCH (08:22)
[2021-05-27] MEDS: SPIRONOLACTONE 25 MG TAB PO SCH (08:22)
[2021-05-27] MEDS: APIXABAN 5 MG TAB PO SCH (08:22)
[2021-05-27] MEDS: hydroCHLOROthiazide 25 MG TAB PO SCH (08:22)
[2021-05-27] MEDS: predniSONE 10 MG TAB PO SCH (08:22)
[2021-05-27] MEDS: MONTELUKAST 10 MG TAB PO SCH (08:22)
[2021-05-27] MEDS: ALBUTEROL NEBULIZED 2.5 MG/3 ML INHALATION SCH ×2 (08:45→12:00)
[2021-05-27] MEDS: BUDESONIDE 1 MG/2 ML NEBU INHALATION SCH (08:49)
--- NOTE | 2021-05-27 11:01 | P.PN ---
Subjective Progress Note Date: 05/27/21 Principal diagnosis: Cardiac arrhythmia The patient was seen this morning. He is overall feeling better. He has been maintaining normal sinus mechanism on the current medical regimen. On examination he still have bilateral expiratory wheezing. No symptoms of chest pain or chest discomfort. Pulmonary team continues to be on the case. Objective - Vital Signs Vital signs: Vital Signs Temp 98.2 F 05/27/21 08:00 Pulse 78 05/27/21 09:05 Resp 18 05/27/21 08:00 BP 119/64 05/27/21 08:00 Pulse Ox 96 05/27/21 08:00 Intake & Output 05/26/21 05/27/21 05/27/21 18:59 06:59 18:59 Intake Total 1200 240 Output Total 600 Balance 600 240 Weight 100.5 kg Intake: Oral 1200 240 Output: Urine 600 Other: Voiding Method Urinal Urinal # Voids 3 - Constitutional General appearance: Present: no acute distress - Respiratory Respiratory: bilateral: wheezing - Cardiovascular Rhythm: regular Heart sounds: normal: S1, S2 - Labs CBC & Chem 7: 05/27/21 07:27 05/27/21 07:27 Labs: Abnormal Lab Results - Last 24 Hours (Table) 05/27/21 05/27/21 Range/Units 07:27 07:27 RBC 3.42 L (4.30-5.90) m/uL Hgb 12.0 L (13.0-17.5) gm/dL Hct 35.6 L (39.0-53.0) % MCV 103.8 H (80.0-100.0) fL MCH 35.2 H (25.0-35.0) pg Carbon Dioxide 35 H (22-30) mmol/L Total Protein 5.6 L (6.3-8.2) g/dL Albumin 3.3 L (3.5-5.0) g/dL Assessment and Plan Assessment: Assessment #1 paroxysmal atrial fibrillation #2 coronary artery disease #3 chronic obstructive pulmonary disease Plan #1 the patient has been maintaining normal sinus mechanism after the ca rdioversion #2 continue the oral anticoagulation #3 the patient can be discharged in the next 12-24 hour
[2021-05-27 12:16] VITALS: PULSE 80
--- NOTE | 2021-05-27 12:48 | P.PN ---
Subjective Progress Note Date: 05/27/21 Principal diagnosis: Shortness of breath. Atrial fibrillation with rapid ventricular response This is a very pleasant 65-year-old gentleman with a known history of coronary artery disease with previous stent placement, carotid artery disease with previous stent placement, hypothyroidism, former smoker, hyperlipidemia, hypertension, chronic asthmatic bronchitis. He presented to the emergency room yesterday with several days of not feeling quite right. He did develop some i ntermittent chest pain as well. Some palpitations and dizziness. He was found to be in atrial fibrillation with a rapid ventricular response. He was initiated on a heparin drip per weight-based protocol. Initiated on amiodarone currently on 0.5 mg/m. Cardizem drip at 10 mg per hour. 0.9 normal saline at 20 mL per hour. He is seen today in consultation in the intensive care unit. He is currently awake and alert in no acute distress. Still in atrial fibrillation with a rapid ventricular response. He is maintaining O2 saturations in the 90s on 2 L/m per nasal cannula. Chest x-ray revealed evidence of chronic changes but no acute pulmonary process. White count 11.3. Hemoglobin 12.3. Sodium 137. Potassium 4.3. Creatinine 0.2. Troponin 0.074. 0.045. TSH 2.89. AST 47, ALT 46. Plan is for possible LORI and cardioversion today. The patient is seen today 05/25/2021 in follow-up in the intensive care unit. He is currently resting comfortably in bed. Awake and alert in no acute distress. Maintaining good O2 saturations in the 90s on 2 L/m per nasal cannula. No drips. No IV fluids. He did undergo LORI and cardioversion yesterday with successful transition to regular sinus rhythm which she remains today. No chest discomfort. No shortness of breath, cough or congestion. No palpitations. White count 9.1. Hemoglobin 11.3. Sodium 137. Potassium 4.2. Creatinine 0.77. Anticoagulated with Eliquis. He is using his home Trelegy and albuterol. Progress note dated 05/26/2021. The patient was transferred out of the intensive care unit yesterday. Currently, he is on the stepdown unit. He is in room 372. Clinically, the patient seems be doing much better. His breathing is much improved. The patient continues on his usual home medications including theophylline, prednisone,Trelegy, and albuterol. Today's white count is 12.3, hemoglobin 12.2, hematocrit 35.2, platelet count 189,000. Sodium 136, potassium 3.7, chlorides 99, CO2 32, anion gap 5, BUN and creatinine were 15 and 0.92. Pro- calcitonin level was 0.04. No recent chest x-ray to review. Progress note dated 05/27/2021. 65-year-old male who was admitted with a diagnosis of atrial fibrillation with rapid ventricular response. The patient was cardioverted after a LORI, in the ICU. Currently, the patient's doing well. He is hoping to be discharged. That will be up to the primary service. From the breathing standpoint, he is doing better, he feels pretty much at baseline. He's currently on the same oxygen levels that he uses at home. Today's labs include a white count of 9.1, hem oglobin 12, hematocrit 35.6, and a platelet count of 196,000. Sodium 137, potassium 4.3, chlorides 98, CO2 35, anion gap 4, BUN 13, creatinine 0.89. Albumin 3.3. Chest x-ray from May 26 is reviewed. Objective - Vital Signs Vital signs: Vital Signs Temp 98.2 F 05/27/21 08:00 Pulse 80 05/27/21 12:15 Resp 18 05/27/21 11:35 BP 119/64 05/27/21 08:00 Pulse Ox 96 05/27/21 08:00 Intake & Output 05/26/21 05/27/21 05/27/21 18:59 06:59 18:59 Intake Total 1200 240 Output Total 600 Balance 600 240 Weight 100.5 kg Intake: Oral 1200 240 Output: Urine 600 Other: Voiding Method Urinal Urinal # Voids 3 - Exam No acute distress, oriented 3. 3 L saturation is 96%. No evidence of conversational dyspnea or use of accessory muscles. Cough is a bit wet and congested. HEENT examination is grossly unremarkable. Neck supple. Full range of motion. No adenopathy thyromegaly or neck vein distention. Cardiovascular examination reveals regular rhythm rate. S1-S2 normal. No S3 or S4. No discernible murmur noted. Heart sounds are very distant. Heart rate 80 bpm. Lungs reveal coarse bilateral expiratory rhonchi. Expiratory wheezes are appreciated. Breath sounds equal bilaterally but diminished throughout. There is prolongation on forced maneuver. No crackles. Abdomen soft bowel sounds are heard. No masses or tenderness. Extremities are intact. No cyanosis clubbing or edema. Skin is without rash or lesion. Neurologic examination is brief but nonfocal. - Labs CBC & Chem 7: 05/27/21 07:27 05/27/21 07:27 Labs: Abnormal Lab Results - Last 24 Hours (Table) 05/27/21 05/27/21 Range/Units 07:27 07:27 RBC 3.42 L (4.30-5.90) m/uL Hgb 12.0 L (13.0-17.5) gm/dL Hct 35.6 L (39.0-53.0) % MCV 103.8 H (80.0-100.0) fL MCH 35.2 H (25.0-35.0) pg Carbon Dioxide 35 H (22-30) mmol/L Total Protein 5.6 L (6.3-8.2) g/dL Albumin 3.3 L (3.5-5.0) g/dL Assessment and Plan Assessment: New onset atrial fibrillation with RVR. Status post transesophageal echocardiogram, and cardioversion on 05/24/2021. Mild troponin leak. History of CAD with previous stent placement. History of carotid artery disease, status post stent placement. Chronic severe COPD/bronchial asthma. Previous history of tobacco use. Hypothyroidism. History of hypertension. History of hyperlipidemia. Plan: Plan dated 05/26/2021. The patient is currently on his normal home dose of oxygen, and is back on all his normal breathing medications. From my perspective, the patient could be considered for discharge. We'll see what cardiology has to say and also his primary care physician, who is Dr. Ervin. The patient sees my partner in the office. He should follow-up with my partner the next 10 days to 2 weeks. Prognosis is guarded. We will continue to follow and make recommendations where appropriate. Plan dated 05/27/2021. Currently, the patient's doing well. He feels he's Primus back to baseline. His breathing is stable. He is currently on 3 L nasal cannula. He uses that at home. The patient will follow with my partner post discharge. Hopefully, the primary service will discharge the patient today. Additional recommendations and suggestions are forthcoming. Prognosis is guarded. Time with Patient: Less than 30
--- NOTE | 2021-05-27 12:53 | P.DS ---
Providers Date of admission: 05/23/21 14:51 Expected date of discharge: 05/27/21 Attending physician: Chris Ervin Consults: 05/23/21 14:51 Consult Physician Routine Consulting Provider: Goran Gary Consult Reason/Comments: Critical care management Do you want consulting provider notified?: Yes Consult Physician Stat Consulting Provider: Federico Diaz Consult Reason/Comments: A. fib with rapid ventricular response Do you want consulting provider notified?: Already Contacted Primary care physician: Chris Aziza [facility] Course: Diagnosis on discharge: 1. New onset atrial fibrillation with rapid ventricular response, on admission, patient underwent cardioversion yesterday, he is currently in normal sinus rhythm, he was started on Eliquis 2. Abnormal troponin level 3. History of COPD. Patient maintained on albuterol breathing treatments. Critical care pulmonary service is following 3. History of asthma 4. History of coronary artery disease with stents 5. History of GERD 6. History of hyperlipidemia 7. History of essential hypertension Hospital course: This is a 65-year-old male patient who presented to the hospital with complaints of ongoing shortness of breath and diaphoresis along with chest pain over the past 3 days. Patient reports that he felt symptoms started Thursday after cutting the grass in which he became very short of breath and diaphoretic with any activity. Patient also past medical history of asthma, COPD, hyperlipidemia, hypertension, osteoarthritis and coronary artery disease with previous cardiac stent. Upon arrival patient was found to be in A. fib with RVR. At that time patient was started on Cardizem in the ER but became hypotensive. Cardizem drip was DC'd. Cardiology services were consulted and patient was started on amiodarone drip along with heparin drip. This does appear to be new onset atrial fibrillation. Patient also having elevated troponin level. Initial chest x-ray completed showing chronic changes without acute new pulmonary process. Patient has been admitted to the intensive care unit. Cardiology service is consulted. Critical care service is consulted. At this time patient remains short of breath. Heart rate elevated 130s to 140s. Patient denies nausea vomiting or diarrhea. Patient denies any urinary burning or frequency On 05/24/2021 patient alert and oriented 3. Heart rate remains elevated despite amiodarone drip. Plans per nursing staff for cardioversion today at 9:30 per cardiology with LORI. Patient remains short of breath with activity. Repeat chest x-ray ordered per critical care services. Patient denies nausea vomiting or diarrhea. Patient denies any urinary burning or frequency. On 05/25/2021 patient was seen and examined in the ICU he is alert and oriented 3 in no apparent distress, he denies any complaints there is no fever or chills no headache or dizziness no chest pain no shortness of breath no palpitation no cough no nausea or vomiting no abdominal pain no diarrhea no blood in the stools no burning with urination no frequency or urgency and no hematuria, there is no weakness or numbness in any of the extremities no change in vision speech or gait. Patient underwent cardioversion yesterday, he has been maintained in normal sinus rhythm since then, IV heparin was discontinued and patient was started on Eliquis, per cardiology possible discharge to home tomorrow if stable. On 05/26/2021 patient is alert and oriented 3. Patient has been moved out of the intensive care unit. Patient still complaining of some shortness of breath. Will order repeat chest x-ray. Cardiology and pulmonary services are following. Patient remains on eliquis in [facility]. Heart rate remains controlled in sinus rhythm. At this time patient denies chest pain. Patient denies nausea vomiting or diarrhea. Patient denies any urinary burning or frequency On 05/27/2021 patient was seen and examined on the telemetry floor he is alert and oriented 3 in no apparent distress, he is feeling better he denies any chest pain shortness of breath or palpitation, he is back to his baseline, he was evaluated by pulmonary and cardiology and was cleared for discharge, patient will be discharged home today he was given a prescription for Cardizem, Eliquis, and metoprolol, Coreg was discontinued during this admission. Patient will be followed in our office within 1 week he will also follow with pulmonary and cardiology. Plan - Discharge Summary Discharge Rx Participant: Yes New Discharge Prescriptions: New Apixaban [Eliquis] 5 mg PO BID tab Metoprolol Tartrate [Lopressor] 25 mg PO BID tab Diltiazem Oral [Cardizem*] 30 mg PO TID tab Continue Levalbuterol HCl [Xopenex Nebulized] 1.25 mg INHALATION RT-QID minoxidiL 10 mg PO HS Hydrocodone/Acetaminophen [Hydrocodone-Acetamin 10-325 mg] 1 tab PO Q8H PRN PRN Reason: Pain Theophylline Anhydrous [Uniphyl] 200 mg PO BID Aspirin EC [Ecotrin Low Dose] 81 mg PO DAILY Montelukast [Singulair] 10 mg PO DAILY predniSONE 10 mg PO DAILY Ipratropium Nebulized [Atrovent Nebulized 0.2 MG/ML] 0.5 mg INHALATION RT-QID Levothyroxine Sodium [Synthroid] 50 mcg PO DAILY minoxidiL 5 mg PO DAILY Spironolactone [Aldactone] 25 mg PO DAILY Pantoprazole Sodium [Protonix] 40 mg PO BID Albuterol Sulfate [Ventolin HFA] 2 puff INHALATION RT-QID PRN PRN Reason: Shortness Of Breath Valsartan/Hydrochlorothiazide [Valsartan-Hctz 320-25 mg Tab] 1 tab PO DAILY Atorvastatin Calcium [Lipitor] 80 mg PO HS Fluticasone/Umeclidin/Vilanter [Trelegy Ellipta 200-62.5-25] 1 puff INHALATION RT-DAILY Discontinued Carvedilol [Coreg] 12.5 mg PO BID Discharge Medication List Levalbuterol HCl [Xopenex Nebulized] 1.25 mg INHALATION RT-QID 03/24/14 [History] minoxidiL 10 mg PO HS 08/28/14 [History] Hydrocodone/Acetaminophen [Hydrocodone-Acetamin 10-325 mg] 1 tab PO Q8H PRN 02/12/16 [History] Theophylline Anhydrous [Uniphyl] 200 mg PO BID 02/12/16 [History] Aspirin EC [Ecotrin Low Dose] 81 mg PO DAILY 02/05/17 [History] Ipratropium Nebulized [Atrovent Nebulized 0.2 MG/ML] 0.5 mg INHALATION RT-QID 02/05/17 [History] Montelukast [Singulair] 10 mg PO DAILY 02/05/17 [History] predniSONE 10 mg PO DAILY 02/05/17 [History] Levothyroxine Sodium [Synthroid] 50 mcg PO DAILY 07/13/19 [History] minoxidiL 5 mg PO DAILY 07/13/19 [History] Pantoprazole Sodium [Protonix] 40 mg PO BID 11/28/19 [History] Spironolactone [Aldactone] 25 mg PO DAILY 11/28/19 [History] Albuterol Sulfate [Ventolin HFA] 2 puff INHALATION RT-QID PRN 05/31/20 [History] Valsartan/Hydrochlorothiazide [Valsartan-Hctz 320-25 mg Tab] 1 tab PO DAILY 05/31/20 [History] Atorvastatin Calcium [Lipitor] 80 mg PO HS 06/05/20 [History] Fluticasone/Umeclidin/Vilanter [Trelegy Ellipta 200-62.5-25] 1 puff INHALATION RT-DAILY 05/23/21 [History] Apixaban [Eliquis] 5 mg PO BID tab 05/27/21 [Rx] Diltiazem Oral [Cardizem*] 30 mg PO TID tab 05/27/21 [Rx] Metoprolol Tartrate [Lopressor] 25 mg PO BID tab 05/27/21 [Rx] Follow up Appointment(s)/Referral(s): Chris Ervin MD [Primary Care Provider] - 1-2 days (Office closed - please call to make an appointment.) Freddy Lo MD [STAFF PHYSICIAN] - 1 Week (office closed - please call to make an appointment.) Patient Instructions/Handouts: A-fib (Atrial Fibrillation) (DC), COPD (Chronic Obstructive Pulmonary Disease) (DC)
== END 2021-05-27 13:08 | disposition home or self-care (01) | DRG 310 ==
LOC: EC 11:58 → 2SICU 14:51 → 3SCARD 05-26 03:10
PROVIDERS: ADMIT Internal Medicine; ATTEND Internal Medicine
PROC: B24BZZZ Ultrasonography of Heart with Aorta (ICD-10-PCS; 2021-05-24)
PROC: 5A2204Z Restoration of Cardiac Rhythm, Single (ICD-10-PCS; 2021-05-24)
PROC: B24BZZ4 Ultrasonography of Heart with Aorta, Transesophageal (ICD-10-PCS; principal; 2021-05-24 12:20)
DX: I48.0 Paroxysmal atrial fibrillation (principal); E03.9 Hypothyroidism, unspecified; E78.5 Hyperlipidemia, unspecified; F17.200 Nicotine dependence, unspecified, uncomplicated; I10 Essential (primary) hypertension; I25.10 Atherosclerotic heart disease of native coronary artery without angina pectoris; Z96.652 Presence of left artificial knee joint; G47.33 Obstructive sleep apnea (adult) (pediatric); E66.9 Obesity, unspecified; M19.90 Unspecified osteoarthritis, unspecified site; K21.9 Gastro-esophageal reflux disease without esophagitis; I95.2 Hypotension due to drugs; T46.1X5A Adverse effect of calcium-channel blockers, initial encounter; J44.9 Chronic obstructive pulmonary disease, unspecified; J45.50 Severe persistent asthma, uncomplicated; Z79.01 Long term (current) use of anticoagulants; Z79.02 Long term (current) use of antithrombotics/antiplatelets; Z79.51 Long term (current) use of inhaled steroids; Z79.82 Long term (current) use of aspirin; Z79.890 Hormone replacement therapy; Z79.899 Other long term (current) drug therapy; Z80.1 Family history of malignant neoplasm of trachea, bronchus and lung; Z80.8 Family history of malignant neoplasm of other organs or systems; Z82.49 Family history of ischemic heart disease and other diseases of the circulatory system; Z95.5 Presence of coronary angioplasty implant and graft; R79.89 Other specified abnormal findings of blood chemistry
CPT/HCPCS: 36415; 71045; 71046; 80053; 83735; 84145; 84443; 84484; 85025; 85610; 85730; 92960; 93005; 93306; 93312; 93320; 93325; 94640; 94760; 96361; 96365; 96367; 96375; 96376; 99291

== ENCOUNTER → 2021-06-12 | Outpatient (CLI) | payer MEDICARE | END | disposition home or self-care (01) | LOC: LABWHC1 13:37 | PROVIDERS: ATTEND Internal Medicine Critical Care Medicine | DX: J44.9 Chronic obstructive pulmonary disease, unspecified (principal) | CPT/HCPCS: 36415; 82785; 85008; 86003 ==